=== PATIENT | female | born 1940 | race Caucasian/White ===

== ENCOUNTER 2019-01-29 18:49 | Inpatient (IN) ==
[2019-01-29] MEDS ORDERED: MoRPHine SULFATE 4 MG/ML 1 ML CARP\\VIAL IV STA (19:17)
[2019-01-29] MEDS ORDERED: KETOROLAC TROMETHAMINE 15 MG/ML VIAL IV STA (19:17)
[2019-01-29] MEDS ORDERED: ONDANSETRON INJ 2 MG/ML 2 ML VIAL IV STA (19:17)
[2019-01-29] MEDS ORDERED: SODIUM CHLORIDE 0.9% 1000ML 1,000 ML IV SCH (19:30)
[2019-01-29 19:49] LABS: Basophils # (auto) 0.02 K/uL (0-0.2); Basophils % (auto) 0.2 %; Eosinophils # (auto) 0.02 K/uL (0-0.5); Eosinophils % (auto) 0.2 %; Hematocrit (blood only) 44.6 % (37-47); Hemoglobin 15.7 g/dL (12.0-16.0); Immature Granulocytes # (auto) 0.03 K/uL (0.00-0.02); Immature Granulocytes % (auto) 0.3 %; Lymphocytes % (auto) 18.6 %; Mean Corpuscular Hgb Conc 35.2 g/dL (32-36); Mean Corpuscular Volume 96.3 fL (80-100); Mean Platelet Volume 9.5 fL (7.4-10.4); Monocytes # (auto) 1.01 K/uL (0.11-0.59); Monocytes % (auto) 11.8 %; Neutrophils % (auto) 68.9 %; Platelet Count 327 K/uL (130-400); RDW Coefficient of Variation 14.9 % (11.5-14.5); RDW Standard Deviation 52.2 fL (36.4-46.3); Red Blood Count 4.63 M/uL (4.2-5.4); White Blood Count 8.58 K/uL (4.8-10.8)
[2019-01-29 20:01] LABS: Appearance Urine Turbid (Clear); Bacteria Urine Automated Negative (Negative); Blood Urine 2+ (Negative); Color Urine Dark Yellow; Epithelial Cell Urine Auto >30 /lpf (0-5); Glucose Urine UA Negative (Negative); Ketones Urine 1+ (Negative); Leukocyte Esterase Urine 2+ (Negative); Nitrite Urine Negative (Negative); Protein Urine 1+ (Negative); Urobilinogen Urine Negative (Negative); WBC Urine Automated >30 /hpf (0-5)
[2019-01-29 20:06] LABS: Alanine Aminotransferase 32 U/L (12-78); Aspartate Aminotransferase 31 U/L (15-37); BUN Creatinine Ratio 9.5 (10-20); Blood Urea Nitrogen 14 mg/dl (7-18); Calcium 9.7 mg/dl (8.5-10.1); Carbon Dioxide 26 mmol/L (21-32); Chloride 98 mmol/L (98-107); Est GFR (African American) 38.1; Est GFR (Non-African American) 32.8; Glucose 119 mg/dl (70-99); Potassium 3.6 mmol/L (3.5-5.1); Sodium 135 mmol/L (136-145)
[2019-01-29 20:09] LABS: Albumin Globulin Ratio 1.1 (0.9-2); Alkaline Phosphatase 66 U/L (45-117); Bilirubin,Total 0.8 mg/dl (0.2-1); Globulin 3.6 gm/dl (2.5-4.0); Total Protein 7.6 gm/dl (6.4-8.2)
[2019-01-29 20:27] LABS: Bilirubin Urine 1+ (Negative)
[2019-01-29 20:28] LABS: Ictotest Urine Positive (Negative)
--- NOTE | 2019-01-29 20:47 | XRay Report ---
XR KUB/Abdomen 1 view CLINICAL HISTORY: R flank pain COMPARISON STUDY: 12/16/2018 FINDINGS: There is no pathologic bowel dilatation. No renal calculi are visualized. There are multipl e pelvic basin calcifications, likely representing phleboliths. There is a lumbar scoliosis. There ar e moderately advanced degenerative changes present within the spine IMPRESSION: 1. No evidence of pathologic bowel dilatation 2. No urinary tract calculi identified on conventional radiographic imaging Electronically signed by: Wellington Hutchinson M.D. 01/29/2019 8:46 PM
--- NOTE | 2019-01-29 21:00 | CT Scan Report ---
CT SCAN OF THE ABDOMEN AND PELVIS WITHOUT CONTRAST CLINICAL HISTORY: Hematuria, back pain. Possible pyelonephritis. COMPARISON STUDY: No previous studies for comparison. TECHNIQUE: CT scan of the abdomen and pelvis was performed from the lung bases to the proximal femurs . Images are reviewed in the axial, sagittal, and coronal planes. IV contrast was not administered fo r this examination. A dose lowering technique was utilized adhering to the principles of ALARA. CT DOSE: 307.26 mGy.cm FINDINGS: Lower chest: The heart is normal in size and configuration, without pericardial effusion. The lung ba ses and pleural spaces are clear. Liver: There is mild hepatic steatosis. No focal masses are visualized. There is no ductal dilatation . Gallbladder: Mildly distended. No calculi are visualized. Spleen: Normal in size and attenuation. Pancreas: Unremarkable. Adrenal glands: There is minor bilateral adrenal gland thickening Kidneys: No renal, ureteral, or bladder calculi are visualized. There is no hydronephrosis. The left kidney is slightly smaller than the right. Bowel: There are no transition zones indicate bowel obstruction. There is no evidence of acute append icitis. There is no evidence of acute diverticulitis. Peritoneum: There is no intraperitoneal free air or abdominal ascites. There is a tiny fat-containing umbilical hernia. Vasculature: The abdominal aorta is normal in course and caliber. Adenopathy: None. Pelvic viscera: The bladder, and pelvic viscera are unremarkable. Skeletal structures: There is a scoliosis. There are multilevel degenerative changes. No destructive lesions are visualized. IMPRESSION: 1. No evidence of bowel obstruction. No evidence of free air 2. No renal, ureteral, or bladder calculi identified 3. No evidence of acute appendicitis. No evidence of acute diverticulitis 4. Mild gallbladder distention Electronically signed by: Wellington Hutchinson M.D. 01/29/2019 8:59 PM
[2019-01-29] MEDS ORDERED: SODIUM CHLORIDE 0.9% 1000ML 1,000 ML IV ONE (21:17)
[2019-01-29] MEDS: fentaNYL citrate 100 MCG/2 ML VIAL IV ONE ×2 (21:25→21:31)
[2019-01-29] MEDS ORDERED: cefTRIAXone SODIUM 1,000 MG/50 ML BAG IV STA (22:54)
--- NOTE | 2019-01-29 23:51 | History & Physical Report ---
Date of Service January 29, 2019 Assessment & Plan (1) Neuralgia, postherpetic: Postherpetic neuralgia affecting right low back radiating to pelvis and down right leg- Failure of outpatient treatment with gabapentin and oxycodone. Placed on Voltaren gel 4 times daily overnight, then start Lidoderm patch in the a.m. Continue gabapentin 300 mg p.o. 3 times daily. Change oxycodone 5 mg p.o. every 4 hours as needed moderate pain. Patient did receive fentanyl 50 mcg IV, morphine sulfate 4 mg IV and Toradol 15 mg IV in the ED with little improvement. Will consult pain management. Present on Admission?: Yes (2) Glaucoma: Continue usual eyedrops Present on Admission?: Yes History of Present Illness Chief Complaint: The patient presents to the emergency department with severe right lower back pain radiating around to the front of her abdomen and down her right leg to her thigh. Primary Care Provider: Tereso Schwab MD The patient is an 79-year-old female who was treated for shingles in early December, has a healed rash with residual markings, but has had persistent right low back pain radiating toward the front of her abdomen, and down her right thigh, that has become intolerable. Allergies Allergy/AdvReac Type Severity Reaction Status Date / Time tomato Allergy Anaphylaxis Unverified 01/29/19 20: FRUIT Allergy Anaphylaxis Uncoded 01/29/19 20:19 Home Medications Home Medications Medication Instructions Recorded Confirmed Type brimonidine [Alphagan P] 1 drp OPL TID 12/16/18 01/29/19 History latanoprost 1 drp OPB PM 12/16/18 01/29/19 History gabapentin 300 mg PO TID 01/29/19 01/29/19 History oxycodone 10 mg PO UD PRN 01/29/19 01/29/19 History Past Med/Surg History Family History Other No pertinent family history Social History Preferred Language: Georgian Communication Ability: Effective Seismograph Recorder Required: No Beliefs That Will Affect Care: None Current Living Situation: Alone current occupational status: retired Other Information That Helps Us Care for You: No Feels Safe at Home: Yes Safety Concerns: Feels Safe At This Time Smoking Status: Never smoker Hx Alcohol Use: No Hx Substance Use: No Review of Systems Review of Systems: The patient denies chest pain, palpitations, shortness of breath, dyspnea on exertion, cough, lower extremity swelling, sore throat, fevers, chills, sweats, weight change, fatigue, nausea, vomiting, diarrhea , constipation, abdominal pain, pelvic pain, blood in urine or stool, dysuria, urinary frequency or urgency, lightheadedness, dizziness, headache, memory loss, loss of consciousness, abnormal bruising or bleeding, imbalance, focal or generalized weakness, numbness or tingling in arms, generalized arthralgias or myalgias, neck pain, or night sweats. The review of systems is otherwise negative other than for that already noted above, and at least 10 systems have been reviewed. Physical Exam Physical Exam: The patient is awake, alert and oriented 3, well developed and well nourished, normocephalic and atraumatic, lying in bed and in intermittent moderate distress due to right side pain as she moves. HEENT--PERRL, EOMI, mucous membranes and oropharynx normal. Neck--supple. No JVD. No bruits. Thyroid normal, trachea midline, no adenopathy. Heart--normal S1 and S2. No murmurs, rubs or gallops. Lungs--clear bilaterally, no respiratory distress, no accessory muscle use. Abdomen--normal bowel sounds and soft. Nontender. Nondistended. Extremities--no cyanosis or clubbing. No edema. There are good distal pulses b/l. Dermatologic--healing rash right lower back around toward the front, with lesion toward right sacroiliac, sensitive to light touch. Neurologic--cranial nerves II through XII grossly intact. Rheumatologic--normal range of motion. Psychiatric--normal affect. Results & Data Vital Signs (Past 12 Hours) Vital Signs Temp Pulse Pulse Resp BP BP Pulse Ox 01/29/19 23:50 86 18 128/86 99 01/29/19 22:44 83 18 167/76 H 98 01/29/19 22:00 100 H 20 168/117 H 98 01/29/19 21:39 94 H 20 154/77 H 96 01/29/19 21:06 103 H 20 156/79 H 98 01/29/19 20:17 68 18 145/92 H 100 01/29/19 19:53 81 18 99 01/29/19 19:36 98 01/29/19 19:00 36.7 C 113 H 24 134/78 97 Laboratory Results Laboratory Results WBC 8.58 K/uL (4.8-10.8) 01/29/19 19:25 RBC 4.63 M/uL (4.2-5.4) 01/29/19 19:25 Hgb 15.7 g/dL (12.0-16.0) 01/29/19 19:25 Hct 44.6 % (37-47) 01/29/19 19:25 MCV 96.3 fL (80-100) 01/29/19 19:25 MCH 33.9 pg (25-34) 01/29/19: MCHC 35.2 g/dL (32-36) 01/29/19 19:25 RDW Std Deviation 52.2 fL (36.4-46.3) H 01/29/19:25 RDW Coeff of Mikki 14.9 % (11.5-14.5) H 01/29/19:25 Plt Count 327 K/uL (130-400) 01/29/19 19:25 MPV 9.5 fL (7.4-10.4) 01/29/19 19:25 Immature Gran % (Auto) 0.3 % 01/29/19 19:25 Neut % (Auto) 68.9 % 01/29/19:25 Lymph % (Auto) 18.6 % 01/29/19 19:25 Burnet % (Auto) 11.8 % 01/29/19 19:25 Eos % (Auto) 0.2 % 01/29/19 19:25 Baso % (Auto) 0.2 % 01/29/19:25 Immature Gran # (Auto) 0.03 K/uL (0.00-0.02) H 01/29/19:25 Neut # (Auto) 5.90 K/uL (1.4-6.5) 01/29/19 19:25 Lymph # (Auto) 1.60 K/uL (1.2-3.4) 01/29/19 19:25 Burnet # (Auto) 1.01 K/uL (0.11-0.59) H 01/29/19 19:25 Eos # (Auto) 0.02 K/uL (0-0.5) 01/29/19 19:25 Baso # (Auto) 0.02 K/uL (0-0.2) 01/29/19 19:25 Sodium 135 mmol/L (136-145) L 01/29/19 19:25 Potassium 3.6 mmol/L (3.5-5.1) 01/29/19 19:25 Chloride 98 mmol/L (98-107) 01/29/19 19:25 Carbon Dioxide 26 mmol/L (21-32) 01/29/19 19:25 Anion Gap 11.0 (3-11) 01/29/19 19:25 BUN 14 mg/dl (7-18) 01/29/19:25 Creatinine 1.49 mg/dl (0.6-1.2) H 01/29/19 19:25 Est Cr Clr Drug Dosing Not Reportable 01/29/19:25 Est GFR ( Amer) 38.1 01/29/19 19:25 Est GFR (Non-Af Amer) 32.8 01/29/19 19:25 BUN/Creatinine Ratio 9.5 (10-20) L 01/29/19 19:25 Glucose 119 mg/dl (70-99) H 01/29/19:25 Calcium 9.7 mg/dl (8.5-10.1) 01/29/19 19:25 Total Bilirubin 0.8 mg/dl (0.2-1) 01/29/19 19:25 AST 31 U/L (15-37) 01/29/19 19:25 ALT 32 U/L (12-78) 01/29/19 19:25 Alkaline Phosphatase 66 U/L (45-117) 01/29/19 19:25 Troponin I < 0.015 ng/ml (0-0.045) 01/29/19 19:25 Total Protein 7.6 gm/dl (6.4-8.2) 01/29/19 19:25 Albumin 4.0 gm/dl (3.4-5.0) 01/29/19 19:25 Globulin 3.6 gm/dl (2.5-4.0) 01/29/19 19:25 Albumin/Globulin Ratio 1.1 (0.9-2) 01/29/19 19:25 Lipase 197 U/L (73-393) 01/29/19 19:25 Urine Color Dark Yellow 01/29/19 19:40 Urine Appearance Turbid (Clear) H 01/29/19 19:40 Urine pH 5.0 (4.5-7.5) 01/29/19 19:40 Ur Specific [place] 1.020 (1.000-1.030) 01/29/19 19:40 Urine Protein 1+ (Negative) H 01/29/19 19:40 Urine Glucose (UA) Negative (Negative) 01/29/19 19:40 Urine Ketones 1+ (Negative) H 01/29/19 19:40 Urine Blood 2+ (Negative) H 01/29/19 19:40 Urine Nitrite Negative (Negative) 01/29/19 19:40 Urine Bilirubin 1+ (Negative) H 01/29/19 19:40 Urine Urobilinogen Negative (Negative) 01/29/19 19:40 Ur Leukocyte Esterase 2+ (Negative) H 01/29/19 19:40 Urine WBC (Auto) >30 /hpf (0-5) H 01/29/19 19:40 Urine RBC (Auto) 5-10 /hpf (0-4) H 01/29/19 19:40 U Hyaline Cast (Auto) 1-5 /lpf (0-5) 01/29/19 19:40 U Epithel Cells (Auto) >30 /lpf (0-5) H 01/29/19 19:40 Urine Bacteria (Auto) Negative (Negative) 01/29/19 19:40 Diagnostic Findings [facility], [place] [phone] XRay Report Patient: CARLOS FREIRE UAdmit Date: 01/29/19 MR#: [id number]: [address] Acct ID:[id number]: Date: 1940City Zip: [place] [address] Age: 79Location: ED Sex: F Room/Bed: Att Phy: Diagnosis: APPENDIX ISSUES, GETTING OVER SHINGLES [place] Phy: Anant Schwab MDService Date: 01/29/19 Fam Phy: Abiel Jalloh MDInterpreting Phy: Wellington Hutchinson MD Admit Phy: Ordering Phy: Kevan Myrick M.D. cc: ~ XR KUB/Abdomen 1 view CLINICAL HISTORY: R flank pain COMPARISON STUDY: 12/16/2018 FINDINGS: There is no pathologic bowel dilatation. No renal calculi are visualized. There are multiple pelvic basin calcifications, likely representing phleboliths. There is a lumbar scoliosis. There are moderately advanced degenerative changes present within the spine IMPRESSION: 1. No evidence of pathologic bowel dilatation 2. No urinary tract calculi identified on conventional radiographic imaging Electronically signed by: Wellington Hutchinson M.D. 01/29/2019 8:46 PM Dictated: 01/29/192044 Transcribed: 01/29/192044 [place], [place] [phone] CT Scan Report Patient: CARLOS FREIRE UAdmit Date: 01/29/19 MR#: [id number]: [id number] Acct ID:[id number]: Date: 1940City Zip: [place] [address] Age: 79Location: ED Sex: F Room/Bed: Att Phy: Diagnosis: APPENDIX ISSUES, GETTING OVER SHINGLES [place] Phy: Anant Schwab MDService Date: 01/29/19 [facility] Phy: Abiel Jalloh MDInterpreting Phy: Wellington Hutchinson MD Admit Phy: Ordering Phy: Kevan Myrick M.D. cc: ~ CT SCAN OF THE ABDOMEN AND PELVIS WITHOUT CONTRAST CLINICAL HISTORY: Hematuria, back pain. Possible pyelonephritis. COMPARISON STUDY: No previous studies for comparison. TECHNIQUE: CT scan of the abdomen and pelvis was performed from the lung bases to the proximal femurs. Images are reviewed in the axial, sagittal, and coronal planes. IV contrast was not administered for this examination. A dose lowering technique was utilized adhering to the principles of ALARA. CT DOSE: 307.26 mGy.cm FINDINGS: Lower chest: The heart is normal in size and configuration, without pericardial effusion. The lung bases and pleural spaces are clear. Liver: There is mild hepatic steatosis. No focal masses are visualized. There is no ductal dilatation. Gallbladder: Mildly distended. No calculi are visualized. Spleen: Normal in size and attenuation. Pancreas: Unremarkable. Adrenal glands: There is minor bilateral adrenal gland thickening Kidneys: No renal, ureteral, or bladder calculi are visualized. There is no hydronephrosis. The left kidney is slightly smaller than the right. Bowel: There are no transition zones indicate bowel obstruction. There is no evidence of acute appendicitis. There is no evidence of acute diverticulitis. Peritoneum: There is no intraperitoneal free air or abdominal ascites. There is a tiny fat-containing umbilical hernia. Vasculature: The abdominal aorta is normal in course and caliber. Adenopathy: None. Pelvic viscera: The bladder, and pelvic viscera are unremarkable. Skeletal structures: There is a scoliosis. There are multilevel degenerative changes. No destructive lesions are visualized. IMPRESSION: 1. No evidence of bowel obstruction. No evidence of free air 2. No renal, ureteral, or bladder calculi identified 3. No evidence of acute appendicitis. No evidence of acute diverticulitis 4. Mild gallbladder distention Electronically signed by: Wellington Hutchinson M.D. 01/29/2019 8:59 PM Dictated: 01/29/192054 Transcribed: 01/29/192054 Code Status & VTE Plan Code Status Full code VTE Prophylaxis Plan VTE Prophylaxis will be ordered: Yes
--- NOTE | 2019-01-30 00:01 | Emergency Department Note ---
Entered by Kristy Vu acting as a scribe for Kevan Myrick MD History of Present Illness General Chief complaint: Abdominal Pain Stated complaint: APPENDIX ISSUES, GETTING OVER SHINGLES Time Seen by Provider: 01/29/19 19:06 History of Present Illness Onset (ago): month(s) 2 Location: back Pain Consistency: + constant Maximum Pain Intensity: 10 Quality: + other ("jolting") Associated symptoms: + nausea/vomiting (positive nausea, negative vomiting) and + other (abdominal pain, dry mouth); no chest pain and no shortness of breath Treatments prior to arrival: other (oxycodone) The patient is a 79 year-old white F w/ PMHx recent shingles and HTN who presents to the ED w/ CC of constant back pain beginning 2 months ago. She notes that 2 months ago she was treated in the ED for shingles. She states that she normally takes gabapentin and oxycodone for her pain but did not take gabapentin because she did not think it was working properly. She describes her pain as jolting. She notes that she is currently experiencing abdominal pain, nausea, and dry mouth. She denies experiencing chest pain and shortness of breath. She also denies a history of kidney stones, abdominal surgeries, and recent trauma. She notes that she has been experiencing normal bowel movements and urination. Home Medications Home Medications Medication Instructions Recorded Confirmed Type brimonidine [Alphagan P] 1 drp OPL TID 12/16/18 01/29/19 History latanoprost 1 drp OPB PM 12/16/18 01/29/19 History gabapentin 300 mg PO TID 01/29/19 01/29/19 History oxycodone 10 mg PO UD PRN 01/29/19 01/29/19 History Allergies Allergy/AdvReac Type Severity Reaction Status Date / Time tomato Allergy Anaphylaxis Unverified 01/29/19 20:19 FRUIT Allergy Anaphylaxis Uncoded 01/29/19 20:19 Past Med/Surg History Medical History H/O: HTN (hypertension) (Chronic) Shingles (Chronic) Surgical History No pertinent past surgical history Family History Other No pertinent family history Social History Preferred Language: Kinyarwanda current occupational status: retired Feels Safe at Home: Yes Smoking Status: Never smoker Review of Systems See HPI for pertinent positives & negatives. and A total of 10 systems reviewed and were otherwise negative Physical Exam Vital Signs Vital Signs - 24 hr 01/29/19 19:00 01/29/19 19:36 01/29/19 19:53 Temperature 36.7 C Temperature Source Oral Sepsis Recent Fever Within 48 Hours No Sepsis New/Unexplained Change in Mental Status No Sepsis Action Taken by Nursing No Action Required Pulse Rate 113 H Pulse Rate [Bilateral Apical] 81 Respiratory Rate 24 18 Respiratory Effort / Characteristics Respiratory Depth Blood Pressure 134/78 Blood Pressure [Right Arm] Blood Pressure Mean 96 Blood Pressure Mean [Right Arm] Pulse Oximetry 97 98 99 Oxygen Delivery Method Room Air Room Air Room Air 01/29/19 20:17 01/29/19 21:06 01/29/19 21:39 Temperature Temperature Source Sepsis Recent Fever Within 48 Hours Sepsis New/Unexplained Change in Mental Status Sepsis Action Taken by Nursing Pulse Rate Pulse Rate [Bilateral Apical] 68 103 H 94 H Respiratory Rate 18 20 20 Respiratory Effort / Characteristics Respiratory Depth Blood Pressure Blood Pressure [Right Arm] 145/92 H 156/79 H 154/77 H Blood Pressure Mean Blood Pressure Mean [Right Arm] 109 104 102 Pulse Oximetry 100 98 96 Oxygen Delivery Method Room Air Room Air Room Air 01/29/19 22:00 01/29/19 22:44 01/29/19 23:50 Temperature Temperature Source Sepsis Recent Fever Within 48 Hours Sepsis New/Unexplained Change in Mental Status Sepsis Action Taken by Nursing Pulse Rate Pulse Rate [Bilateral Apical] 100 H 83 86 Respiratory Rate 20 18 18 Respiratory Effort / Characteristics Non-Labored Respiratory Depth Normal Blood Pressure Blood Pressure [Right Arm] 168/117 H 167/76 H 128/86 Blood Pressure Mean Blood Pressure Mean [Right Arm] 134 106 100 Pulse Oximetry 98 98 99 Oxygen Delivery Method Room Air GENERAL: Mild distress and in pain, non-toxic. EYE EXAM: Normal conjunctiva. PERRL, no anisocoria and EOM's grossly intact w/o pain. OROPHARYNX: Moist mucus membranes. NECK: Supple, no nuchal rigidity, no adenopathy, non-tender. no signs of meningismus. LUNGS: Clear to auscultation. Normal chest wall mechanics. HEART: NSR, no MRG. ABDOMEN: Abdomen soft, non-tender, normo-active bowel sounds, no masses, no rebound or guarding. BACK: No CVA TTP. Right sided paraspinal back pain, no midline step off, no left sided pain, well healed small scars over R lower back consistent with prior shingles. SKIN: No rashes and no bruising. UPPER EXTREMITIES: Upper extremities are grossly normal. LOWER EXTREMITIES: No pitting edema. No calf pain. Negative straight leg raise bilaterally, no saddle anesthesia. NEURO EXAM: Cranial nerves II-XII grossly intact, normal speech, moves all 4 extremities on command w/o issue. Course 1914: The patient was evaluated in room B6. A complete history and physical exam was performed. 2039: The patient is currently going in for a CAT scan. 2146: The patient states that she is not feeling any better. 2240: I reviewed the patient's case with Dr. Wilver Hebert, [facility] Hospitalist. He will evaluate the patient for further management. Consultations Consultation #1: I reviewed the patient's case with Dr. Wilver Hebert, [facility] Hospitalist. He will evaluate the patient for further management. Time: 22:41 Administered Medications Discontinued Medications Fentanyl Citrate (Fentanyl Citrate) 50 mcg IV NOW ONE Stop: 01/29/19 21:18 Last Admin: 01/29/19 21:31 Dose: 50 mcg Documented by: [id number] Sodium Chloride (Nss 1000ml) 1,000 mls @ 999 mls/hr IV .Q1H1M TIFFANI Stop: 01/29/19 20:30 Last Infusion: 01/29/19 20:53 Dose: 0 mls/hr Documented by: [id number] Admin: 01/29/19 19:46 Dose: 999 mls/hr Documented by: [id number] Sodium Chloride (Nss 1000ml) 1,000 mls @ 999 mls/hr IV .Q1H1M ONE Stop: 01/29/19 22:17 Last Infusion: 01/29/19 22:35 Dose: 0 mls/hr Documented by: [id number] Admin: 01/29/19 21:25 Dose: 999 mls/hr Documented by: [id number] Ceftriaxone Sodium (Rocephin) 1,000 mg in 50 mls @ 100 mls/hr IV NOW STA Stop: 01/29/19 23:23 Last Infusion: 01/29/19 23:37 Dose: 0 mls/hr Documented by: [id number] Admin: 01/29/19 23:01 Dose: 100 mls/hr Documented by: [id number] Ketorolac Tromethamine (Toradol) 15 mg IV NOW STA Stop: 01/29/19 19:18 Last Admin: 01/29/19 19:46 Dose: 15 mg Documented by: [id number] Morphine Sulfate (Morphine Sulfate) 4 mg IV NOW STA Stop: 01/29/19 19:18 Last Admin: 01/29/19 19:46 Dose: 4 mg Documented by: [id number] Ondansetron HCl (Zofran) 4 mg IV NOW STA Stop: 01/29/19 19:18 Last Admin: 01/29/19 19:46 Dose: 4 mg Documented by: [id number] Medical Decision Making Medical Records Attestation: I reviewed the patient's medical records. Home Medications Current Medication List: was personally reviewed by me Laboratory Data Attestation: I reviewed the patient's lab results. Result diagrams: 01/29/19 19:25 01/29/19 19:25 Lab Results 01/29/19 01/29/19 01/29/19 Range/Units 19:25 19:25 19:25 WBC 8.58 (4.8-10.8) K/uL RBC 4.63 (4.2-5.4) M/uL Hgb 15.7 (12.0-16.0) g/dL Hct 44.6 (37-47) % MCV 96.3 (80-100) fL MCH 33.9 (25-34) pg MCHC 35.2 (32-36) g/dL RDW Std Deviation 52.2 H (36.4-46.3) fL RDW Coeff of Mikki 14.9 H (11.5-14.5) % Plt Count 327 (130-400) K/uL MPV 9.5 (7.4-10.4) fL Immature Gran % (Auto) 0.3 % Neut % (Auto) 68.9 % Lymph % (Auto) 18.6 % [place] % (Auto) 11.8 % Eos % (Auto) 0.2 % Baso % (Auto) 0.2 % Immature Gran # (Auto) 0.03 H (0.00-0.02) K/uL Neut # (Auto) 5.90 (1.4-6.5) K/uL Lymph # (Auto) 1.60 (1.2-3.4) K/uL [place] # (Auto) 1.01 H (0.11-0.59) K/uL Eos # (Auto) 0.02 (0-0.5) K/uL Baso # (Auto) 0.02 (0-0.2) K/uL Sodium 135 L (136-145) mmol/L Potassium 3.6 (3.5-5.1) mmol/L Chloride 98 (98-107) mmol/L Carbon Dioxide 26 (21-32) mmol/L Anion Gap 11.0 (3-11) BUN 14 (7-18) mg/dl Creatinine 1.49 H (0.6-1.2) mg/dl Est Cr Clr Drug Dosing Not Reportable Est GFR ( Amer) 38.1 Est GFR (Non-Af Amer) 32.8 BUN/Creatinine Ratio 9.5 L (10-20) Glucose 119 H (70-99) mg/dl Calcium 9.7 (8.5-10.1) mg/dl Total Bilirubin 0.8 (0.2-1) mg/dl AST 31 (15-37) U/L ALT 32 (12-78) U/L Alkaline Phosphatase 66 (45-117) U/L Troponin I < 0.015 (0-0.045) ng/ml Total Protein 7.6 (6.4-8.2) gm/dl Albumin 4.0 (3.4-5.0) gm/dl Globulin 3.6 (2.5-4.0) gm/dl Albumin/Globulin Ratio 1.1 (0.9-2) Lipase 197 (73-393) U/L Urine Color Urine Appearance (Clear) Urine pH (4.5-7.5) Ur Specific [place] (1.000-1.030) Urine Protein (Negative) Urine Glucose (UA) (Negative) Urine Ketones (Negative) Urine Blood (Negative) Urine Nitrite (Negative) Urine Bilirubin (Negative) Urine Urobilinogen (Negative) Ur Leukocyte Esterase (Negative) Urine WBC (Auto) (0-5) /hpf Urine RBC (Auto) (0-4) /hpf U Hyaline Cast (Auto) (0-5) /lpf U Epithel Cells (Auto) (0-5) /lpf Urine Bacteria (Auto) (Negative) 01/29/19 Range/Units 19:40 WBC (4.8-10.8) K/uL RBC (4.2-5.4) M/uL Hgb (12.0-16.0) g/dL Hct (37-47) % MCV (80-100) fL MCH (25-34) pg MCHC (32-36) g/dL RDW Std Deviation (36.4-46.3) fL RDW Coeff of Mikki (11.5-14.5) % Plt Count (130-400) K/uL MPV (7.4-10.4) fL Immature Gran % (Auto) % Neut % (Auto) % Lymph % (Auto) % [place] % (Auto) % Eos % (Auto) % Baso % (Auto) % Immature Gran # (Auto) (0.00-0.02) K/uL Neut # (Auto) (1.4-6.5) K/uL Lymph # (Auto) (1.2-3.4) K/uL [place] # (Auto) (0.11-0.59) K/uL Eos # (Auto) (0-0.5) K/uL Baso # (Auto) (0-0.2) K/uL Sodium (136-145) mmol/L Potassium (3.5-5.1) mmol/L Chloride (98-107) mmol/L Carbon Dioxide (21-32) mmol/L Anion Gap (3-11) BUN (7-18) mg/dl Creatinine (0.6-1.2) mg/dl Est Cr Clr Drug Dosing Est GFR ( Amer) Est GFR (Non-Af Amer) BUN/Creatinine Ratio (10-20) Glucose (70-99) mg/dl Calcium (8.5-10.1) mg/dl Total Bilirubin (0.2-1) mg/dl AST (15-37) U/L ALT (12-78) U/L Alkaline Phosphatase (45-117) U/L Troponin I (0-0.045) ng/ml Total Protein (6.4-8.2) gm/dl Albumin (3.4-5.0) gm/dl Globulin (2.5-4.0) gm/dl Albumin/Globulin Ratio (0.9-2) Lipase (73-393) U/L Urine Color Dark Yellow Urine Appearance Turbid H (Clear) Urine pH 5.0 (4.5-7.5) Ur Specific [place] 1.020 (1.000-1.030) Urine Protein 1+ H (Negative) Urine Glucose (UA) Negative (Negative) Urine Ketones 1+ H (Negative) Urine Blood 2+ H (Negative) Urine Nitrite Negative (Negative) Urine Bilirubin 1+ H (Negative) Urine Urobilinogen Negative (Negative) Ur Leukocyte Esterase 2+ H (Negative) Urine WBC (Auto) >30 H (0-5) /hpf Urine RBC (Auto) 5-10 H (0-4) /hpf U Hyaline Cast (Auto) 1-5 (0-5) /lpf U Epithel Cells (Auto) >30 H (0-5) /lpf Urine Bacteria (Auto) Negative (Negative) Imaging Data Radiologist's Impression: Radiology results as stated below per my review and the radiologist's interpretation: XR KUB/Abdomen 1 view CLINICAL HISTORY: R flank pain COMPARISON STUDY: 12/16/2018 FINDINGS: There is no pathologic bowel dilatation. No renal calculi are visualized. There are multiple pelvic basin calcifications, likely representing phleboliths. There is a lumbar scoliosis. There are moderately advanced degenerative changes present within the spine IMPRESSION: 1. No evidence of pathologic bowel dilatation 2. No urinary tract calculi identified on conventional radiographic imaging Electronically signed by: Wellington Hutchinson M.D. 01/29/2019 8:[address] SCAN OF THE ABDOMEN AND PELVIS WITHOUT CONTRAST CLINICAL HISTORY: Hematuria, back pain. Possible pyelonephritis. COMPARISON STUDY: No previous studies for comparison. TECHNIQUE: CT scan of the abdomen and pelvis was performed from the lung bases to the proximal femurs. Images are reviewed in the axial, sagittal, and coronal planes. IV contrast was not administered for this examination. A dose lowering technique was utilized adhering to the principles of ALARA. CT DOSE: 307.26 mGy.cm FINDINGS: Lower chest: The heart is normal in size and configuration, without pericardial effusion. The lung bases and pleural spaces are clear. Liver: There is mild hepatic steatosis. No focal masses are visualized. There is no ductal dilatation. Gallbladder: Mildly distended. No calculi are visualized. Spleen: Normal in size and attenuation. Pancreas: Unremarkable. Adrenal glands: There is minor bilateral adrenal gland thickening Kidneys: No renal, ureteral, or bladder calculi are visualized. There is no hydronephrosis. The left kidney is slightly smaller than the right. Bowel: There are no transition zones indicate bowel obstruction. There is no evidence of acute appendicitis. There is no evidence of acute diverticulitis. Peritoneum: There is no intraperitoneal free air or abdominal ascites. There is a tiny fat-containing umbilical hernia. Vasculature: The abdominal aorta is normal in course and caliber. Adenopathy: None. Pelvic viscera: The bladder, and pelvic viscera are unremarkable. Skeletal structures: There is a scoliosis. There are multilevel degenerative changes. No destructive lesions are visualized. IMPRESSION: 1. No evidence of bowel obstruction. No evidence of free air 2. No renal, ureteral, or bladder calculi identified 3. No evidence of acute appendicitis. No evidence of acute diverticulitis 4. Mild gallbladder distention Electronically signed by: Wellington Hutchinson M.D. 01/29/2019 8:59 PM ECG Data Attestation: I personally reviewed and interpreted this ECG as follows: Indication: abdominal pain Rate (beats per minute): 84 Rhythm: sinus rhythm Findings: + other (normal intervals, normal axis, no STs changes); no T-wave inversion Blood Pressure Blood Pressure Findings: Elevated blood pressure Blood Pressure Disposition: further management by hospitalist REMEDIOS Lopez The patient is a 79 year-old white F w/ PMHx recent shingles and HTN who presents to the ED w/ CC of constant back pain beginning 2 months ago. Differential diagnosis includes: musculoskeletal, disc herniation, fracture, aortic disease, metastatic disease, cord compression, discitis, infection, renal colic, gastrointestinal, acute exacerbation of chronic back pain, sciatica, cauda equina, as well as others were entertained. Patient was seen and evaluated the bedside. The patient has been complaining some right lower back discomfort. Patient denies any recent trauma. The pa tiejose antonio did have a recent bout of shingles and has been taking both oxycodone and gabapentin without much relief. The patient states that twinges. The patient does have well-healed mild scars the right lower back where she does have associated pain. She does not have any upper right-sided back pain and no left- sided back pain. Straight leg raise is negative. Neurovascular intact distally. Patient has no saddle anesthesia. No step-offs noted midline lumbar spine. Patient did a blood work completed along with EKG troponin KUB urinalysis and the patient was given medications to help with symptoms. X-ray was unremarkable. EKG also unremarkable. The patient's blood work is fairly normal. Patient was still complaining of persistent pain so she was given a did have a CT completed given the patient's persistent back pain and associated urine which could be related to infection. The patient CT was unremarkable. No evidence of diverticulitis appendicitis or bowel obstruction. There is also no evidence of pyelonephritis although it was a noncontrast study. Given the patient's symptoms she was treated with Rocephin. I did offer the patient admission given her persistent pain which likely may be related to her recent zoster infection and associated postherpetic neuralgia. I did speak with the on-call hospitalist who agreed to further evaluate treat the patient. Patient was admitted to the medicine service. Impression & Plan Neuralgia, postherpetic, Acute UTI Discharge Plan Visit Data Chief Complaint: Abdominal Pain Stated Complaint: APPENDIX ISSUES, GETTING OVER SHINGLES ED Provider: Kevan Myrick Discharge Problem: Neuralgia, postherpetic, Acute UTI Patient Disposition: Admitted As Inpatient Forms Stand Alone Forms: Call Back Authorization, [facility] [place] Prescriptions Prescriptions: No Action latanoprost 0.005 % Drops 1 drp OPB PM RF: 0 Alphagan P 0.1 % drops 1 drp OPL TID RF: 0 gabapentin 300 mg capsule 300 mg PO TID RF: 0 oxycodone 10 mg tablet 10 mg PO UD PRN (Reason: Pain) RF: 0 Referrals Referrals: Tereso Schwab MD [Primary Care Provider] - The scribe's documentation has been prepared under my direction and personally reviewed by me in its entirety. I confirm that the note above accurately reflects all work, treatment, procedures, and medical decision making performed by me.
[2019-01-30] MEDS ORDERED: ACETAMINOPHEN 325 MG TAB PO PRN (00:59)
[2019-01-30] MEDS ORDERED: POLYETHYLENE (MIRALAX) 17 GM PACK PO PRN (00:59)
[2019-01-30] MEDS ORDERED: DICLOFENAC SOD 1% GEL 100 GM TUBE EXT PRN (00:59)
[2019-01-30] MEDS: ONDANSETRON INJ 2 MG/ML 2 ML VIAL IV PRN ×2 (01:38→08:41)
[2019-01-30] MEDS: OXYCODONE HCL IR 5 MG TAB (IMMEDIATE RELEASE) PO PRN ×4 (01:38→23:53)
[2019-01-30] MEDS ORDERED: ALPHAGAN~ORDER AWAITING ACTION SCH (08:00)
[2019-01-30] MEDS ORDERED: PNEUMOCOCCAL POLYSACCHARIDES 25 MCG/0.5 ML VIAL/SYR IM ONE (08:15)
[2019-01-30] MEDS ORDERED: PNEUMOCOCCAL ADMINISTRATION CHARGE ONE (08:15)
--- NOTE | 2019-01-30 08:34 | Hospitalist Progress Note ---
Date of Service January 30, 2019 Assessment & Plan (1) Neuralgia, postherpetic: Postherpetic neuralgia affecting right low back radiating to pelvis and down right leg- Failure of outpatient treatment with gabapentin and oxycodone. Placed on Voltaren gel 4 times daily overnight, will add another Lidoderm patch as patient reports it is helping but does not extend far enough. Discontinue gabapentin 300 mg p.o. 3 times daily as patient reports it causes her to be nauseas and is not helping. Start amitryptiline po 10 mg daily and titrate up from there. Schedule acetaminophen 1g tid Continue oxycodone 5 mg p.o. every 4 hours as needed moderate pain, 2 mg IV morphine q3h Patient did receive fentanyl 50 mcg IV, morphine sulfate 4mg IV and Toradol 15 mg IV in the ED with little improvement. Pain management consult (2) Glaucoma: Continue usual eyedrops (3) DVT prophylaxis: SCDs Supervising Physician Co-Signing Physician Notes I supervised Lacy Almonte NP on the care of this patient. We discussed the patient's status and plan of care. The plan is as written in her note. Subjective Patient looks very uncomfortable and reports quite a lot of pain this morning. Her rash has largely cleared. She is nauseas but has not thrown up. Review of Systems Review of Systems: All systems reviewed & are unremarkable except as noted in HPI & below Physical Exam Physical Exam: General: painful appearing Eyes: normal inspection, PERLL Respiratory: chest non tender, clear to auscultation, normal breath sounds, no respiratory distress, no accessory muscle use Cardiac: regular rate and rhythm, no rub or gallop, no murmur, no edema, no jvd GI/: active bowel sounds, no abd pain or tenderness, soft, non distended Extremities: normal range of motion, normal strength, non tender Neuro/Psych: alert and oriented x 3, normal mood and affect Skin: normal color, dry Results & Data Vital Signs (Past 12 Hours) Vital Signs Temp Pulse Resp BP Pulse Ox 01/30/19 07:04 36.9 C 77 18 157/82 H 95 01/30/19 02:12 36.6 C 82 20 175/84 H 95 01/30/19 00:26 88 20 160/73 H 97 01/29/19 23:50 86 18 128/86 99 01/29/19 22:44 83 18 167/76 H 98 01/29/19 22:00 100 H 20 168/117 H 98 01/29/19 21:39 94 H 20 154/77 H 96 01/29/19 21:06 103 H 20 156/79 H 98
[2019-01-30] MEDS ORDERED: GABAPENTIN 300 MG CAP PO SCH (09:00)
[2019-01-30] MEDS ORDERED: LIDOCAINE 5% 1 PATCH TD SCH (09:00)
[2019-01-30] MEDS ORDERED: AMITRIPTYLINE HCL 10 MG TAB PO SCH (10:30)
[2019-01-30] MEDS ORDERED: MoRPHine SULFATE 2 MG/ML CARP IV PRN (10:43)
[2019-01-30] MEDS: ACETAMINOPHEN 500 MG TAB PO SCH ×2 (10:58→17:30)
[2019-01-30 11:43] LABS: Hemoglobin 14.2 g/dL (12.0-16.0)
[2019-01-30] MEDS: BRIMONIDINE TARTRATE OPL SCH ×3 (13:07→20:33)
[2019-01-30] MEDS: LIDOCAINE 5% 1 PATCH TD SCH (13:08)
[2019-01-30] MEDS: DICLOFENAC SOD 1% GEL 100 GM TUBE EXT SCH ×3 (13:10→20:29)
[2019-01-30] MEDS: LATANOPROST 0.005% OP SOLN 2.5 ML BTL OPB SCH (20:26)
[2019-01-31] MEDS: ACETAMINOPHEN 500 MG TAB PO SCH ×3 (02:19→18:00)
[2019-01-31] MEDS ORDERED: MoRPHine SULFATE 2 MG/ML CARP IV STA (03:40)
[2019-01-31 06:39] LABS: BUN Creatinine Ratio 8.8 (10-20); Calcium 9.2 mg/dl (8.5-10.1); Creatinine Clr Calc Pharmacy 33.3 ml/min; Est GFR (African American) 46.6; Est GFR (Non-African American) 40.2; Potassium 3.9 mmol/L (3.5-5.1)
[2019-01-31] MEDS: DICLOFENAC SOD 1% GEL 100 GM TUBE EXT SCH ×4 (08:42→22:20)
[2019-01-31] MEDS: BRIMONIDINE TARTRATE OPL SCH ×3 (08:42→21:40)
[2019-01-31] MEDS: OXYCODONE HCL IR 5 MG TAB (IMMEDIATE RELEASE) PO PRN ×3 (08:44→23:26)
--- NOTE | 2019-01-31 10:26 | Pain Management Consultation ---
Date of Consultation January 31, 2019 Assessment & Plan (1) Neuralgia, postherpetic: 1. Agree with discontinuation of gabapentin secondary to nausea. However, I do feel the patient would benefit from anticonvulsant therapy and thus will initiate Lyrica 50 mg p.o. twice daily. 2. Recommend initiation of Cymbalta 20 mg p.o. every morning to further augment descending pain regulation. 3. Recommend continuation of Lidoderm patch as well as oxycodone at this time for as needed pain relief. 4. Consider epidural steroid injections should she fail conservative measures, L1-2 versus L2-3 interlaminar or right L1 and L2 transforaminal epidural steroid injections. 5. Thank you for this consultation please call with any questions. History of Present Illness Attending Physician: Manuel Paige History of Present Illness 79-year-old female who had an episode of herpes zoster December 2018. She did visit with her primary care physician and was placed on valacyclovir as well as opiates. She reports the pain continues to be persistent sharp shooting electric burning along her L1 and 2 right-sided dermatomes. Pain is constant with intermittent exacerbations to 10 out of 10. She reports this is her first herpes zoster episode. She is unable to utilize gabapentin secondary to nausea. She is currently utilizing oxycodone as well as Lidoderm patch and amitrip tyline with mild benefit. She has not had any interventional pain management to this date. She denies any low back pain or radicular symptoms prior to this zoster infection. She denies any bowel or bladder incontinence, motor weakness, footdrop, fever, chills, and or night sweats at this time. Pain Assessment Pain scale - at its best (0-10): 4 Pain scale - at its worst (0-10): 10 Allergies Allergy/AdvReac Type Severity Reaction Status Date / Time tomato Allergy Anaphylaxis Unverified 01/29/19 20:19 FRUIT Allergy Anaphylaxis Uncoded 01/29/19 20:19 Home Medications Home Medications Medication Instructions Recorded Confirmed Type brimonidine [Alphagan P] 1 drp OPL TID 12/16/18 01/29/19 History latanoprost 1 drp OPB PM 12/16/18 01/29/19 History gabapentin 300 mg PO TID 01/29/19 01/29/19 History oxycodone 10 mg PO UD PRN 01/29/19 01/29/19 History Pain History Pain Location Full Body Front + Back: 1. 2. Pain Intensity [facility] Combined Pain Scale: 6-Mod to Severe - Significant limitations of ADLs. Hard to do anything Pain scale - at its best (0-10): 4 Pain scale - at its worst (0-10): 10 Cause Cause of Pain: Spontaneous Timing Timing: all day Character Pain character: burning and sharp Activity Factors Exacerbated by: other (Nothing seems to make the pain worse) Improved by: other (Slightly improved with oxycodone) Current Therapy Current Treatment Therapy: heat and other (Lidoderm) Current Medication Therapy: Gabapentin (Previously utilized but discontinued secondary to nausea), Opiods and TCA Current or Pending Litigation Current or Pending Litigation: No Patient History Medical History H/O: HTN (hypertension) (Chronic) Shingles (Chronic) Surgical History No pertinent past surgical history Family History Other No pertinent family history Social History Preferred Language: Upper Sorbian Communication Ability: Effective 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 Recent memory appears grossly intact Eyes: Pupils are equally round and reactive to light with normal size pupils, eyelids appear normal Ear, nose, mouth, and throat: Moist nasal and oral membranes, lips and tongues appear normal, no external ear abnormalities are noted Neck: The trachea is midline without deviation and no thyromegaly is noted Respiratory: Normal respiratory effort without distress, no audible wheezes or rhonchi CV: Normal S1 and S2 Chest: Deferred GI/abdomen: She has areas of scarring but no current excoriations or open wounds over her right T12-L2 dermatomes. She does have significant allodynia over these sites. She does not appear to have any rebound or guarding to abdominal palpation but is hesitant to allow me to examine the area secondary to burning dysesthesias. She did reluctantly agree to examination of her abdominal region. Musculoskeletal: Head is normocephalic and atraumatic, gait is within normal limits Cervical: Lordotic curve: Normal Range of motion is normal with extension, flexion, side-bending, rotation Strength: Strength is grossly equal bilaterally with 5 out of 5 strength in all planes Sensation of upper extremities: Intact bilaterally Thoracic: Kyphotic curve: Normal Range of motion is normal with extension, flexion, side-bending, rotation Tenderness: Nontender over the axial midline Lumbar: Lordotic curve: Slightly decreased Range of motion is normal with extension, flexion, side-bending, rotation Tenderness: tender over the axial midline only over areas of prior evidence of zoster infection Facet provocation: Negative bilaterally Strength: Strength is equal bilaterally with 5 out of 5 strength in all planes Sensation of lower extremities: Intact bilaterally Pathologic reflexes noted: None Skin: No rashes, lesions, ulcers, or induration noted. There is evidence of scarring post zoster infection in her right abdominal region as noted above. Neuro: No nystagmus noted, the tongue is midline, the patient is able to rotate their head bilaterally : Deferred Results Diagnostic Review CT: reports reviewed CT Findings: [place], [place] [phone] CT Scan Report Patient: CARLOS FREIRE UAdmit Date: 01/29/19 MR#: [id number]: [id number] [facility] Acct ID:[id number]: Date: 1940[facility] Zip: [place] [address] Age: 79Location: ED Sex: F Room/Bed: Att Phy: Diagnosis: APPENDIX ISSUES, GETTING OVER SHINGLES Brook Phy: Anant Schwab, MDService Date: 01/29/19 Fam Phy: Abiel Jalloh MDInterpreting Phy: Wellington Hutchinson MD Admit Phy: Ordering Phy: Ramez, Kevan D., M.D. cc: ~ CT SCAN OF THE ABDOMEN AND PELVIS WITHOUT CONTRAST CLINICAL HISTORY: Hematuria, back pain. Possible pyelonephritis. COMPARISON STUDY: No previous studies for comparison. TECHNIQUE: CT scan of the abdomen and pelvis was performed from the lung bases to the proximal femurs. Images are reviewed in the axial, sagittal, and coronal planes. IV contrast was not administered for this examination. A dose lowering technique was utilized adhering to the principles of ALARA. CT DOSE: 307.26 mGy.cm FINDINGS: Lower chest: The heart is normal in size and configuration, without pericardial effusion. The lung bases and pleural spaces are clear. Liver: There is mild hepatic steatosis. No focal masses are visualized. There is no ductal dilatation. Gallbladder: Mildly distended. No calculi are visualized. Spleen: Normal in size and attenuation. Pancreas: Unremarkable. Adrenal glands: There is minor bilateral adrenal gland thickening Kidneys: No renal, ureteral, or bladder calculi are visualized. There is no hydronephrosis. The left kidney is slightly smaller than the right. Bowel: There are no transition zones indicate bowel obstruction. There is no evidence of acute appendicitis. There is no evidence of acute diverticulitis. Peritoneum: There is no intraperitoneal free air or abdominal ascites. There is a tiny fat-containing umbilical hernia. Vasculature: The abdominal aorta is normal in course and caliber. Adenopathy: None. Pelvic viscera: The bladder, and pelvic viscera are unremarkable. Skeletal structures: There is a scoliosis. There are multilevel degenerative changes. No destructive lesions are visualized. IMPRESSION: 1. No evidence of bowel obstruction. No evidence of free air 2. No renal, ureteral, or bladder calculi identified 3. No evidence of acute appendicitis. No evidence of acute diverticulitis 4. Mild gallbladder distention
[2019-01-31] MEDS: DULOXETINE HCL 20 MG CAP PO SCH (10:54)
[2019-01-31] MEDS: PREGABALIN 50 MG CAP PO SCH ×2 (10:55→22:20)
[2019-01-31] MEDS: ONDANSETRON INJ 2 MG/ML 2 ML VIAL IV PRN ×2 (13:48→19:33)
[2019-01-31] MEDS: CEROVITE ADV FORMULA TAB PO SCH (18:00)
--- NOTE | 2019-01-31 19:30 | Hospitalist Progress Note ---
Date of Service January 31, 2019 Assessment & Plan (1) Neuralgia, postherpetic: appreciate pain management consultation & recs. did not tolerate gabapentin in the past. agree w/ initiation of cymbalta and lyrica. agree w/ lidoderm patches. oxycodone prn. plan to titrate lyrica in the future as tolerated. Present on Admission?: Yes (2) Acute UTI: 2nd to lactobacillus. amox 500 TID x 3 days. Present on Admission?: Yes (3) Severe protein-calorie malnutrition: 20+ pounds of weight loss in 6-8 weeks. I have hard time blaming all of this significant weight loss on side effects from gabapentin and/or other meds. on CT abd/pelvis there was a distended gall bladder. will check RUQ u/s to rule out biliary tract pathology. consider PPI -- gastritis? consider additional work-up as necessary. Present on Admission?: Yes (4) Weight loss: see discussion above. will need additional work-up post-discharge (colonoscopy, EGD, mammogram, etc). Present on Admission?: Yes (5) DVT prophylaxis: start heparin 5000 TID in am Abnormal lab results 01/31/19 Range/Units 05:57 Creatinine 1.26 H (0.6-1.2) mg/dl BUN/Creatinine Ratio 8.8 L (10-20) I certify that the inpatient services were ordered in accordance with Medicare regulations governing the order. This includes certification that hospital inpatient services are reasonable and necessary and in the case of services not specified as inpatient-only under 42 CFR 419.22(n), that they are appropriately provided as inpatient services in accordance to with the 2-midnight benchmark under 43 CFR 412.3(e) Subjective pt reports having lost at least 20 pounds since early December when she was initially dx with shingles on her right abdomen. prior to the shingles she had some form of respiratory illness "all of November" but she did not seek medical attention for this. she attributes her weight loss to "lack of taste" and she blames side effects from oxycodone and gabapentin (both prescribed for her shingles) for the taste issue. she has had persistent nausea for weeks dating back to December. no vomiting. she has had upper abdominal pain in addition to the above. reports that the lidoderm patches do help her pain on the right flank and right abdominal wall (lower thoracic dermatome). she has had some right leg paresthesias in addition to what is listed above. Review of Systems Constitutional: no fever Respiratory: no dyspnea Cardiovascular: no chest pain, no orthopnea, no paroxysmal nocturnal dyspnea and no edema Gastrointestinal: + abdominal pain and + nausea; no vomiting, no constipation, no diarrhea/loose stools and no blood in stools Physical Exam Constitutional: no acute distress slight confusion at times ENMT: Mouth: + oral mucosal abnormality (MM dry) Respiratory: normal respiratory effort, lungs clear to auscultation Cardiovascular: Rate/Rhythm: regular rate and regular rhythm Heart Sounds: normal S1 and normal S2; no murmur Vessels: posterior tibial pulses present and dorsalis pedis pulses present; no JVD Extremities: no edema Gastrointestinal (Abdomen): tender over epigastric area (mild) and scant tenderness RUQ; hyperalgesia to the lower abdominal wall (T11 dermatome or T12 dermatome) with minimal palpation; ND, no HSM, soft Neurologic: no focal motor deficits Psychiatric: Orientation: alert Results & Data Vital Signs (Past 12 Hours) Vital Signs Temp Pulse Resp BP Pulse Ox 01/31/19 14:49 37.1 C 67 18 151/77 H 95 Laboratory Results Laboratory Results - last 24 hr 01/31/19 05:57 Sodium 139 Potassium 3.9 Chloride 107 Carbon Dioxide 26 Anion Gap 6.0 BUN 11 Creatinine 1.26 H Est Cr Clr Drug Dosing 33.3 Est GFR ( Amer) 46.6 Est GFR (Non-Af Amer) 40.2 BUN/Creatinine Ratio 8.8 L Glucose 98 Calcium 9.2
[2019-01-31] MEDS ORDERED: AMOXICILLIN 500 MG CAP PO SCH (21:00)
[2019-01-31] MEDS: LATANOPROST 0.005% OP SOLN 2.5 ML BTL OPB SCH (21:40)
[2019-02-01] MEDS: ACETAMINOPHEN 500 MG TAB PO SCH ×4 (01:43→18:30)
[2019-02-01] MEDS: OXYCODONE HCL IR 5 MG TAB (IMMEDIATE RELEASE) PO PRN ×3 (05:24→20:29)
[2019-02-01] MEDS: ONDANSETRON INJ 2 MG/ML 2 ML VIAL IV PRN ×2 (06:41→12:42)
[2019-02-01] MEDS: LIDOCAINE 5% 1 PATCH TD SCH (07:28)
[2019-02-01] MEDS: DICLOFENAC SOD 1% GEL 100 GM TUBE EXT SCH ×4 (07:28→20:35)
[2019-02-01] MEDS: BRIMONIDINE TARTRATE OPL SCH ×3 (07:28→20:35)
--- NOTE | 2019-02-01 07:29 | Ultrasound Report ---
ABDOMINAL ULTRASOUND, RIGHT UPPER QUADRANT HISTORY: weight loss, nausea, gall bladder distension on CT. COMPARISON: Abdomen and pelvis CT 01/29/2019. FINDINGS: Pancreas: The pancreas demonstrates a normal echotexture. Liver: Unremarkable. Gallbladder: The gallbladder is distended and filled with sludge. Mild gallbladder wall thickening me asuring 3 mm. The technologist reported a positive sonographic Hackett's sign. CBD: Distended measuring 1.2 cm. Small amount of sludge/stones layering within the common bile duct. Right kidney: No hydronephrosis. IMPRESSION: The gallbladder and common bile duct are distended. There is mild gallbladder wall thickening with a positive sonographic Hackett's sign. Trace sludge/stones are within the common bile duct. Therefore, t hese findings are concerning for acute cholecystitis. Clinical correlation recommended. Electronically signed by: Felton Yeung M.D. 02/01/2019 7:28 AM
[2019-02-01] MEDS: MoRPHine SULFATE 2 MG/ML CARP IV PRN ×3 (08:08→14:38)
[2019-02-01 08:12] LABS: BUN Creatinine Ratio 10.6 (10-20); Calcium 9.4 mg/dl (8.5-10.1); Creatinine Clr Calc Pharmacy 34.7 ml/min; Est GFR (African American) 48.9; Est GFR (Non-African American) 42.2; Potassium 4.2 mmol/L (3.5-5.1)
[2019-02-01] MEDS: CEROVITE ADV FORMULA TAB PO SCH (08:14)
--- NOTE | 2019-02-01 08:21 | Hospitalist Progress Note ---
Date of Service February 01, 2019 Assessment & Plan (1) Abnormal gall bladder diagnostic imaging: CT at time of admission showed a distended gall bladder. She reported daily nausea, inability to eat, weight loss, and abdominal pain dating back to December. She blamed these symptoms on side effects from gabapentin & other meds for her shingles. RUQ u/s obtained overnight - highly concerning for acute cholecystitis and choledocholithiasis. Spoke with [facility] and general surgery - both will consult. NPO. IVF. Blood cx's x 2 sets. Recheck LFTs. May need MRCP and/or ERCP - defer to GI. Start IV unasyn once cultures are obtained. Patient was updated with RUQ u/s results & plan of care. Present on Admission?: Yes (2) Neuralgia, postherpetic: T11 or T12 dermatome on right. Initial outbreak of rash - first week of December. Has no active skin lesions. s/p pain management consultation - appreciate their recs. did not tolerate gabapentin in the past. cymbalta and lyrica started yesterday for pain - allow these meds if she can tolerate from GI standpoint. cont lidoderm patches. morphine PRN while NPO. (3) Acute UTI: 2nd to . Unasyn will cover. (4) Severe protein-calorie malnutrition: 20+ pounds of weight loss in 6-8 weeks. I had hard time blaming all of this significant weight loss on side effects from gabapentin and/or other meds. Potentially biliary tract disease was contributing to this -- see above. (5) Weight loss: see discussion above. chronic cholecystitis? Biliary tract cancer? other? (6) DVT prophylaxis: hold on heparin since may need ERCP. SCDs for now. Subjective Patient c/o "shingles" pain, RUQ/epigastric pain, and nausea this am. During u/s of gall bladder at midnight last night she had considerable upper abdominal pain. No vomiting fortunately. No fevers/chills. Simply doesn't feel well this am. Review of Systems Constitutional: + anorexia; no fever and no chills Respiratory: no cough and no dyspnea Cardiovascular: no chest pain Gastrointestinal: + abdominal pain and + nausea; no vomiting Physical Exam Constitutional: + ill appearing (kept c/o nausea during the exam) looks dehydrated ENMT: Mouth: + oral mucosal abnormality (MM dry) Respiratory: normal respiratory effort, lungs clear to auscultation Cardiovascular: Rate/Rhythm: regular rate and regular rhythm Heart Sounds: normal S1 and normal S2; no murmur Vessels: posterior tibial pulses present and dorsalis pedis pulses present; no JVD Extremities: no edema Gastrointestinal (Abdomen): Inspection/Auscultation: abdomen not distended Percussion/Palpation: + abdomen tender (RUQ/epigastric region; tender over T11 or T12 dermatome on right as well); no guarding, abdomen not rigid and no hepatosplenomegaly Skin: no jaundice Psychiatric: Orientation: alert and oriented x 3 Results & Data Vital Signs (Past 12 Hours) Vital Signs Temp Pulse Resp BP Pulse Ox 02/01/19 07:20 36.9 C 78 18 144/80 H 97 01/31/19 23:50 37 C 72 18 168/81 H 97 Laboratory Results Laboratory Results - last 24 hr 02/01/19 07:24 Sodium 138 Potassium 4.2 Chloride 104 Carbon Dioxide 27 Anion Gap 7.0 BUN 13 Creatinine 1.21 H Est Cr Clr Drug Dosing 34.7 Est GFR ( Amer) 48.9 Est GFR (Non-Af Amer) 42.2 BUN/Creatinine Ratio 10.6 Glucose 102 H Calcium 9.4
[2019-02-01 08:41] LABS: Albumin Level 3.3 gm/dl (3.4-5.0); Bilirubin Direct 0.1 mg/dl (0-0.2); Bilirubin,Total 0.5 mg/dl (0.2-1); Total Protein 6.4 gm/dl (6.4-8.2)
[2019-02-01] MEDS: AMPICILLIN/SULBACTAM SOD 3,000 MG in 0.9 % SODIUM CHLORIDE 100 ML IV SCH ×3 (08:49→20:33)
[2019-02-01] MEDS: D5NSS + 20MEQ KCL 20 MEQ/1,000 ML BAG IV SCH ×2 (08:49→20:34)
--- NOTE | 2019-02-01 09:08 | Pain Management Progress Note ---
Date of Service February 01, 2019 Assessment & Plan (1) Neuralgia, postherpetic: 1. Increase Lyrica to 75 mg p.o. twice daily. Orders are written. 2. Recommend continuation of oxycodone, Lidoderm patch, and Cymbalta. 3. Agree with IV utilization of morphine at this time. 4. Consider epidural steroid injections should she fail conservative measures, L1-2 versus L2-3 interlaminar or right L1 and L2 transforaminal epidural steroid injections, could plan for early next week pending outcome of evaluation of her gallbladder. 5. We will continue to follow. (2) Abnormal gall bladder diagnostic imaging: Subjective 79-year-old female who had an episode of herpes zoster December 2018. She reports the pain continues to be persistent sharp shooting electric burning along her L1 and 2 right-sided dermatomes. Pain is constant with intermittent exacerbations to 9 out of 10. She utilized oxycodone 20 mg over the last 24 hours. She reports mild efficacy with Lidoderm patch. She was able to tolerate Lyrica without any side effects yesterday. She is unsure of any benefit from Cymbalta and Lyrica dosing at this early stage. She is reporting some right upper quadrant pain as well as lower abdominal pain this a.m. She continues to report nausea. She had a right upper quadrant ultrasound yesterday which showed evidence of acute cholecystitis. General surgery and GI were consulted this morning by her hospitalist team. She denies any bowel or bladder incontinence, motor weakness, footdrop, fever, chills, and or night sweats at this time. Physical Exam Physical Exam: Constitutional: Well-developed, well-nourished, healthy- appearing, normal weight Psych: Awake, alert, and oriented 3 with normal affect and mood. Recent memory appears grossly intact Eyes: Pupils are equally round and reactive to light with normal size pupils, eyelids appear normal Ear, nose, mouth, and throat: Moist nasal and oral membranes, lips and tongues appear normal, no external ear abnormalities are noted Neck: The trachea is midline without deviation and no thyromegaly is noted Respiratory: Normal respiratory effort without distress, no audible wheezes or rhonchi GI/abdomen: She has areas of scarring but no current excoriations or open wounds over her right T12-L2 dermatomes. She does have significant allodynia over these sites. She has tenderness over her right upper quadrant to palpation. Musculoskeletal: Head is normocephalic and atraumatic, gait is within normal limits Cervical: Lordotic curve: Normal Range of motion is normal with extension, flexion, side-bending, rotation Strength: Strength is grossly equal bilaterally with 5 out of 5 strength in all planes Thoracic: Kyphotic curve: Normal Range of motion is normal with extension, flexion, side-bending, rotation Tenderness: Nontender over the axial midline Lumbar: Lordotic curve: Slightly decreased Range of motion is normal with extension, flexion, side-bending, rotation Tenderness: tender over the axial midline only over areas of prior evidence of zoster infection Strength: Strength is grossly equal bilaterally with 5 out of 5 strength in all planes Sensation of lower extremities: Intact bilaterally Skin: No rashes, lesions, ulcers, or induration noted. There is evidence of scarring post zoster infection in her right abdominal region as noted above. Neuro: No nystagmus noted, the tongue is midline, the patient is able to rotate their head bilaterally : Deferred Results Diagnostic Review Other Findings: [place], [place] [phone] Ultrasound Report Patient: CARLOS FREIRE UAdmit Date: 01/31/19 MR#: [id number]: [address] [facility] Acct ID:[id number]: Date: 1940[facility] Zip: [place] [address] Age: 79Location: 4E Sex: F Room/Bed: [facility] Att Phy: Manuel Paige MDDiagnosis: INTRACTABLE POSTHERPETIC NEURALGIA Brook Phy: Anant Schwab MDService Date: 01/31/19 Fam Phy: Abiel Jalloh MDInterpreting Phy: Felton Yeung MD Admit Phy: Wilver Hebert M.D. Ordering Phy: Manuel Paige MD cc: ~ ABDOMINAL ULTRASOUND, RIGHT UPPER QUADRANT HISTORY: weight loss, nausea, gall bladder distension on CT. COMPARISON: Abdomen and pelvis CT 01/29/2019. FINDINGS: Pancreas: The pancreas demonstrates a normal echotexture. Liver: Unremarkable. Gallbladder: The gallbladder is distended and filled with sludge. Mild gallbladder wall thickening measuring 3 mm. The technologist reported a positive sonographic Hackett's sign. CBD: Distended measuring 1.2 cm. Small amount of sludge/stones layering within the common bile duct. Right kidney: No hydronephrosis. IMPRESSION: The gallbladder and common bile duct are distended. There is mild gallbladder wall thickening with a positive sonographic Hackett's sign. Trace sludge/stones are within the common bile duct. Therefore, these findings are concerning for acute cholecystitis. Clinical correlation recommended. Previous Records Review Previous Records: personally reviewed by me Opioid Risk Assessment Opioid Risk Assessment: risk assessment performed and no issues identified
[2019-02-01] MEDS: DULOXETINE HCL 20 MG CAP PO SCH (10:05)
[2019-02-01] MEDS: PREGABALIN 75 MG CAP PO SCH ×2 (10:05→20:29)
--- NOTE | 2019-02-01 11:50 | Gastrointestinal Consultation ---
Date of Consultation February 01, 2019 Assessment & Plan (1) Abnormal gall bladder diagnostic imagin79 year old female admitted w/ post-herpetic pain, abd imaging concerning for gallstones, GB wall thickening, CBD dilation and concern for layering stone/sludge - NPO - LFTs normal - MRCP - Consult general surgery - May need ERCP pending MR results Thank you for allowing us to participate in the care of this patient. Please call with any acute changes, questions or concerns. Please see addendum below with additional recommendation from my supervising physician. Present on Admission?: No Supervising Physician Co-Signing Physician Notes I have seen and examined the patient and discussed the management with CL Villatoro. 79 yo fm for which GI is consulted for abnormal imaging- abd diann showing sludge and dilated CBD with normal lft's (CBD 1.2 cm), AST 23, ALT 25, TB 0.5, DB 0.1. Admitted with right sided pain- though to be post herpetic pain, no vesicles noted on physical exam. Worsening nausea- leading to abd diann. PE: elderly female in nad, HEENT: perrla, CV: rr no mrg, Pulm: CTAB, Abd: soft slight ruq ttp, nt nd +bs, Ext: no rash noted on her abdomen labs reviewed, imaging reviewed MRCP, ERCP pending MRCP results. History of Present Illness Reason for Consultation: abnormal bile duct Requesting Physician: Royal Attending Physician: Manuel Paige History of Present Illness 79 year old female with history of HTN, shingles in December admitted for control of post-herpetic pain. GI asked to evaluation for abnormal imaging. Pt was seen and evaluated, chart reviewed. Notes shingles in December on right abdominal and into flank region. once resolved, she had persistent herpetic pain. Chronic, worse w/ touch. Mild associated nausea, vomiting although not clear to hear if related to the severity of pain or medication. Pain has significnat worsened which prompted ED evaluation. + weight loss no fever, chills No change in BM EGD/Colon she denies None in epic Did not find records in [facility] ABD US: The gallbladder and common bile duct are distended. There is mild gallbladder wall thickening with a positive sonographic Hackett's sign. Trace sludge/stones are within the common bile duct. Therefore, these findings are concerning for acute cholecystitis. Clinical correlation recommended. CT: No evidence of bowel obstruction. No evidence of free airNo renal, ureteral, or bladder calculi identifiedNo evidence of acute appendicitis. No evidence of acute diverticulitis Mild gallbladder distention Allergies Allergy/AdvReac Type Severity Reaction Status Date / Time tomato Allergy Anaphylaxis Unverified 01/29/19 20:19 FRUIT Allergy Anaphylaxis Uncoded 01/29/19 20:19 Home Medications Home Medications Medication Instructions Recorded Confirmed Type brimonidine [Alphagan P] 1 drp OPL TID 12/16/18 01/29/19 History latanoprost 1 drp OPB PM 12/16/18 01/29/19 History gabapentin 300 mg PO TID 01/29/19 01/29/19 History oxycodone 10 mg PO UD PRN 01/29/19 01/29/19 History Patient History Medical History H/O: HTN (hypertension) (Chronic) Shingles (Chronic) Surgical History No pertinent past surgical history Family History Other No pertinent family history Social History Preferred Language: Romanian Communication Ability: Effective 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 Beliefs That Will Affect Care: None Current Living Situation: Alone current occupational status: retired Other Information That Helps Us Care for You: No Feels Safe at Home: Yes Safety Concerns: Feels Safe At This Time Smoking Status: Never smoker Hx Alcohol Use: No Hx Substance Use: No Review of Systems Constitutional: + weight loss; no fever and no body aches Respiratory: no cough, no dyspnea, no pain on inspiration and no wheezing Cardiovascular: no chest pain, no radiating jaw, neck or arm pain, no dyspnea on exertion and no palpitations Gastrointestinal: + abdominal pain, + early satiety, + nausea and + vomiting; no hematemesis, no diarrhea/loose stools, no blood in stools and no melena Physical Exam Constitutional: well developed and well nourished Respiratory: normal respiratory effort, lungs clear to auscultation Cardiovascular: RRR, no murmur, no edema Gastrointestinal (Abdomen): Inspection/Auscultation: abdomen normal to inspection Percussion/Palpation: + abdomen tender (right UQ), + guarding and abdomen soft; abdomen not rigid, no abdominal mass and no ascites Skin: no rashes, warm and dry Results & Data Vital Signs (Past 12 Hours) Vital Signs Temp Pulse Resp BP Pulse Ox 02/01/19 07:20 36.9 C 78 18 144/80 H 97 01/31/19 23:50 37 C 72 18 168/81 H 97 Laboratory Results 02/01/19 02/01/19 Range/Units 07:24 07:24 Sodium 138 (136-145) mmol/L Potassium 4.2 (3.5-5.1) mmol/L Chloride 104 (98-107) mmol/L Carbon Dioxide 27 (21-32) mmol/L Anion Gap 7.0 (3-11) BUN 13 (7-18) mg/dl Creatinine 1.21 H (0.6-1.2) mg/dl Est Cr Clr Drug Dosing 34.7 ml/min Est GFR ( Amer) 48.9 Est GFR (Non-Af Amer) 42.2 BUN/Creatinine Ratio 10.6 (10-20) Glucose 102 H (70-99) mg/dl Calcium 9.4 (8.5-10.1) mg/dl Total Bilirubin 0.5 (0.2-1) mg/dl Direct Bilirubin 0.1 (0-0.2) mg/dl AST 23 (15-37) U/L ALT 25 (12-78) U/L Alkaline Phosphatase 58 (45-117) U/L Total Protein 6.4 (6.4-8.2) gm/dl Albumin 3.3 L (3.4-5.0) gm/dl
[2019-02-01] MEDS ORDERED: LORazepam 0.5 MG/1 ML VIAL IV STA (15:10)
--- NOTE | 2019-02-01 17:00 | Surgery Consultation ---
Date of Consultation February 01, 2019 Assessment & Plan (1) Abnormal gall bladder diagnostic imagin-year-old female who presented to the ED with persistent and increasing abdominal pain with history of shingles in December and postherpetic neuralgia on pain medication. She also had a history of persistent nausea with a 20 pound weight loss in last [address] scan of the abdomen and pelvis in the emergency room showed gallbladder distention however no other findings. Upon further workup of her chronic nausea and 20 pound weight loss she had a gallbladder ultrasound which showed distended gallbladder with mild thickening of the gallbladder wall and a positive Hackett sign on examination. She also had dilated common bile duct at 1.2 cm with suggestion of trace sludge and stones in the common bile duct. Her labs on presentation included no leukocytosis and total bilirubin along with LFTs and lipase were completely within normal limits. On examination she is tender in the right upper quadrant and epigastric. She sounds tender in the right flank in the area of her shingles. Plan: Patient scheduled for MRCP as per GI recommendations to further evaluate common bile duct given ultrasound findings. We will await those results. Patient concerned about proceeding with cholecystectomy in regards to her recent shingles infection and possibly increasing her pain. Would recommend EGD for further workup of her dysphasia. Continue IV antibiotics for possible early acute cholecystitis Continue current pain management recommendations Repeat morning labs Continue current medical management Dr. Perez has seen and examined patient and agrees with above please see addendum for further recommendations/plan. Supervising Physician Co-Signing Physician Notes I have seen and evaluated the patient and reviewed the medical record. I agree with the documentation as provided in this note by Kristie Greenberg PA-C. Pt is an 79 yo female who presents with possible cholecystitis and possible choledocholithiasis. She does have a significant recent weight loss of 20 pounds over the past two months. She also has a recent history of shingles, and those symptoms seemed to be preoccupying her at the time of the examination. Agree with MRCP for further evaluation with possible GI intervention EUS +/- ERCP pending results of MRCP. If only symptomatic cholelithiasis/cholecystitis or choledocholithiasis would recommend cholecystectomy. Discussed these recommendations with the patient at length today and she would like to pursue surgery however is very concerned with having surgery given the recent shingles and voiced numerous times her concern of "shingles getting into her wounds" and pain if incision were to be at site of pain related to postherpetic neuralgia. She would like to think about surgery further. I will re-discuss with her tomorrow. Potential for OR tomorrow pending findings on MRCP and patient decision. History of Present Illness Reason for Consultation: Right upper quadrant abdominal pain, persistent nausea, 20 pound weight loss in past 2 month Attending Physician: Manuel Paige History of Present Illness Susy is a 79-year-old female who presented to the emergency department with postherpetic pain. She had shingles in December in which she has had chronic postherpetic pain and is currently on pain management. The pain significantly increased in severity which she presented to the emergency department. She has had chronic nausea as well as decreased appetite and anorexia for the past couple of months. She thought maybe it was due to the pain but she has also lost about 20 pounds since November. She has also noticed some difficulty swallowing .However she thought it was due to the new medications and difficulty swallowing those pills. Denies of any fevers, chills, sweats, vomiting, change in bowel movements, constipation, diarrhea, blood in the stools, acholic stools, black tarry stools, difficulty urinating. She denies a history of colonoscopy or EGD. Dr. Paige had asked us to evaluate patient given her nausea and 20 pound weight loss as he felt this was not due to her medications or postherpetic pain. She had abdominal ultrasound which showed gallbladder and common bile duct are distended with mild gallbladder wall thickening and a positive sonographic Hackett sign. She had trace sludge and stones within the common bile duct and common bile duct measuring 1.2 cm. She also had a CT scan of the abdomen and pelvis which only showed mild gallbladder distention. Her labs on presentation showed no leukocytosis and total bilirubin and LFTs and lipase within normal limits. Allergies Allergy/AdvReac Type Severity Reaction Status Date / Time tomato Allergy Anaphylaxis Unverified 01/29/19 20:19 FRUIT Allergy Anaphylaxis Uncoded 01/29/19 20:19 Home Medications Home Medications Medication Instructions Recorded Confirmed Type brimonidine [Alphagan P] 1 drp OPL TID 12/16/18 01/29/19 History latanoprost 1 drp OPB PM 12/16/18 01/29/19 History gabapentin 300 mg PO TID 01/29/19 01/29/19 History oxycodone 10 mg PO UD PRN 01/29/19 01/29/19 History Patient History Medical History H/O: HTN (hypertension) (Chronic) Shingles (Chronic) Surgical History No pertinent past surgical history Family History Other No pertinent family history Social History Preferred Language: Setswana Communication Ability: Effective 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 Beliefs That Will Affect Care: None Current Living Situation: Alone current occupational status: retired Other Information That Helps Us Care for You: No Feels Safe at Home: Yes Safety Concerns: Feels Safe At This Time Smoking Status: Never smoker Hx Alcohol Use: No Hx Substance Use: No Review of Systems Review of Systems: All systems reviewed & are unremarkable except as noted in HPI & below Physical Exam Constitutional: WD/WN, vitals as above + acute distress (mild, constantly moving due to pain) Respiratory: normal respiratory effort; no respiratory distress Gastrointestinal (Abdomen): Inspection/Auscultation: abdomen normal to inspection; abdomen not distended Percussion/Palpation: + abdomen tender (RUQ and epigastric region, tender right flank) Skin: no rashes, warm and dry Psychiatric: A+Ox3, euthymic affect Results & Data Vital Signs (Past 12 Hours) Vital Signs Temp Pulse Resp BP Pulse Ox 02/01/19 15:51 36.9 C 79 20 157/85 H 98 02/01/19 07:20 36.9 C 78 18 144/80 H 97 Laboratory Results 02/01/19 02/01/19 Range/Units 07:24 07:24 Sodium 138 (136-145) mmol/L Potassium 4.2 (3.5-5.1) mmol/L Chloride 104 (98-107) mmol/L Carbon Dioxide 27 (21-32) mmol/L Anion Gap 7.0 (3-11) BUN 13 (7-18) mg/dl Creatinine 1.21 H (0.6-1.2) mg/dl Est Cr Clr Drug Dosing 34.7 ml/min Est GFR ( Amer) 48.9 Est GFR (Non-Af Amer) 42.2 BUN/Creatinine Ratio 10.6 (10-20) Glucose 102 H (70-99) mg/dl Calcium 9.4 (8.5-10.1) mg/dl Total Bilirubin 0.5 (0.2-1) mg/dl Direct Bilirubin 0.1 (0-0.2) mg/dl AST 23 (15-37) U/L ALT 25 (12-78) U/L Alkaline Phosphatase 58 (45-117) U/L Total Protein 6.4 (6.4-8.2) gm/dl Albumin 3.3 L (3.4-5.0) gm/dl Diagnostic Findings ABDOMINAL ULTRASOUND, RIGHT UPPER QUADRANT HISTORY: weight loss, nausea, gall bladder distension on CT. COMPARISON: Abdomen and pelvis CT 01/29/2019. FINDINGS: Pancreas: The pancreas demonstrates a normal echotexture. Liver: Unremarkable. Gallbladder: The gallbladder is distended and filled with sludge. Mild gallbladder wall thickening measuring 3 mm. The technologist reported a positive sonographic Hackett's sign. CBD: Distended measuring 1.2 cm. Small amount of sludge/stones layering within the common bile duct. Right kidney: No hydronephrosis. IMPRESSION: The gallbladder and common bile duct are distended. There is mild gallbladder wall thickening with a positive sonographic Hackett's sign. Trace sludge/stones are within the common bile duct. Therefore, these findings are concerning for acute cholecystitis. Clinical correlation recommended. CT SCAN OF THE ABDOMEN AND PELVIS WITHOUT CONTRAST CLINICAL HISTORY: Hematuria, back pain. Possible pyelonephritis. COMPARISON STUDY: No previous studies for comparison. TECHNIQUE: CT scan of the abdomen and pelvis was performed from the lung bases to the proximal femurs. Images are reviewed in the axial, sagittal, and coronal planes. IV contrast was not administered for this examination. A dose lowering technique was utilized adhering to the principles of ALARA. CT DOSE: 307.26 mGy.cm FINDINGS: Lower chest: The heart is normal in size and configuration, without pericardial effusion. The lung bases and pleural spaces are clear. Liver: There is mild hepatic steatosis. No focal masses are visualized. There is no ductal dilatation. Gallbladder: Mildly distended. No calculi are visualized. Spleen: Normal in size and attenuation. Pancreas: Unremarkable. Adrenal glands: There is minor bilateral adrenal gland thickening Kidneys: No renal, ureteral, or bladder calculi are visualized. There is no hydronephrosis. The left kidney is slightly smaller than the right. Bowel: There are no transition zones indicate bowel obstruction. There is no evidence of acute appendicitis. There is no evidence of acute diverticulitis. Peritoneum: There is no intraperitoneal free air or abdominal ascites. There is a tiny fat-containing umbilical hernia. Vasculature: The abdominal aorta is normal in course and caliber. Adenopathy: None. Pelvic viscera: The bladder, and pelvic viscera are unremarkable. Skeletal structures: There is a scoliosis. There are multilevel degenerative changes. No destructive lesions are visualized. IMPRESSION: 1. No evidence of bowel obstruction. No evidence of free air 2. No renal, ureteral, or bladder calculi identified 3. No evidence of acute appendicitis. No evidence of acute diverticulitis 4. Mild gallbladder distention Electronically signed by: Wellington Hutchinson M.D. 01/29/2019 8:59 PM
--- NOTE | 2019-02-01 18:59 | Magnetic Resonance Report ---
MR MRCP CLINICAL HISTORY: gallstones, CBD dilation, normal LFTs gallbladder distention. Possible acute cholec ystitis. Possible common bile duct calculi. COMPARISON STUDY: Ultrasound dated 01/29/2019, CT scan dated 01/29/2019 FINDINGS: A breath-hold MRCP was performed. MIP images were acquired. There is hepatic steatosis. There is mild gallbladder distention. No gallbladder calculi are visualized. There is trace sludge in the gallbladder. Several cystic pancreatic lesions are visualized, the largest of which measures 11 mm and is located within the pancreatic tail. There is also a 1 cm lesion within the pancreatic neck. 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 There are no filling defects to indicate calculi. There is no pancreatic ductal dilatation. IMPRESSION: 1. Suspected trace sludge in the gallbladder 2. Minor dilatation of the common bile duct which measures 8 mm. No common bile duct filling defects identified. 3. Mild gallbladder distention 4. 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 Hepatic steatosis Electronically signed by: Wellington Hutchinson M.D. 02/01/2019 6:58 PM
[2019-02-01] MEDS: LATANOPROST 0.005% OP SOLN 2.5 ML BTL OPB SCH (20:35)
[2019-02-02] MEDS: ACETAMINOPHEN 500 MG TAB PO SCH ×3 (03:00→18:05)
[2019-02-02] MEDS: AMPICILLIN/SULBACTAM SOD 3,000 MG in 0.9 % SODIUM CHLORIDE 100 ML IV SCH ×4 (04:00→21:24)
[2019-02-02] MEDS: D5NSS + 20MEQ KCL 20 MEQ/1,000 ML BAG IV SCH ×3 (06:19→18:04)
[2019-02-02] MEDS: MoRPHine SULFATE 2 MG/ML CARP IV PRN ×4 (07:23→23:53)
[2019-02-02] MEDS: BRIMONIDINE TARTRATE OPL SCH ×3 (07:25→22:23)
[2019-02-02] MEDS: LIDOCAINE 5% 1 PATCH TD SCH (07:25)
[2019-02-02] MEDS: DULOXETINE HCL 20 MG CAP PO SCH (07:25)
[2019-02-02] MEDS: PREGABALIN 75 MG CAP PO SCH ×2 (07:26→21:27)
[2019-02-02] MEDS: CEROVITE ADV FORMULA TAB PO SCH (07:26)
[2019-02-02] MEDS: DICLOFENAC SOD 1% GEL 100 GM TUBE EXT SCH ×4 (07:26→21:26)
[2019-02-02 08:05] LABS: BUN Creatinine Ratio 10.7 (10-20); Calcium 8.3 mg/dl (8.5-10.1); Creatinine Clr Calc Pharmacy 37.8 ml/min; Est GFR (African American) 54.3; Est GFR (Non-African American) 46.9; Potassium 4.2 mmol/L (3.5-5.1)
[2019-02-02] MEDS: ONDANSETRON INJ 2 MG/ML 2 ML VIAL IV PRN (08:40)
[2019-02-02] MEDS: OXYCODONE HCL IR 5 MG TAB (IMMEDIATE RELEASE) PO PRN (08:40)
--- NOTE | 2019-02-02 09:35 | Pain Management Progress Note ---
Date of Service February 02, 2019 Assessment & Plan (1) Neuralgia, postherpetic: Continue Lyrica at 75mg PO BID. I would hold on further titrating upwards as she does appear slightly confused compared to baseline today. I have asked her to ask for a nurse before getting up to ambulate to the bathroom or the chair as she did report "seeing two moons last night". Continue Cymbalta 20mg daily, Lidocaine patch, Diclofenac gel. Continue Oxycodone 5mg PO and Morphine IV PRN. Pending gallbladder evaluation, she may be a candidate for an epidural injection. Subjective 79 year old white female with a significant history of post herpetic neuralgia, weight loss, and likely cholecystitis. Patient's Lyrica was increased from 50mg to 75mg BID yesterday. She does report moderate improvement in pain from the dosage increase. The sharp jolting and stabbing pain had slightly improved. She was able to sleep well throughout the night. She does admit to having some double vision today and feeling "out of it". The pain is currently rated 7/10. She is scheduled for MRCP today. General surgery has discussed a possible cholecystectomy but as the post herpetic neuralgia is located in the same region as the gall bladder, the patient is hesitant towards surgery. Patient denies any fevers, chills, vomiting, diarrhea, constipation. Case discussed with Dr. Keyona Meneses Pain Assessment Pain Assessment Full Body Front + Back: 1. [facility] Combined Pain Scale: 7-Severe - Pain prevents productive activity. Impossible to tolerate. Pain scale - at its best (0-10): 0 Pain scale - at its worst (0-10): 10 Physical Exam Physical Exam: GENERAL: 79 year old white female appears her stated age. Speech and cognition is intact. She does wince intermittently when she ex periences the sharp RUQ pain. HEAD: Normocephalic; atraumatic. EYES: Pupils are round, equal, and reactive to light; EOM intact. ENT: No external ear discharge or lesions. No rhinorrhea or epistaxis. No mucosal lesions. + dry mouth. CHEST: Regular chest respiration and excursion. ABDOMEN: Active bowel sounds throughout; TTP RUQ. There is allodynia and healed rash along the right T11 dermatome. NEURO: CN II-XII grossly intact with no focal deficits noted. Gait was not witnessed. SKIN: No lesions, erythema, or rashes noted.
--- NOTE | 2019-02-02 10:01 | Surgery Progress Note ---
Date of Service February 02, 2019 Assessment & Plan (1) Abnormal gall bladder diagnostic imagin-year-old female who presented to the ED with persistent and increasing abdominal pain with history of shingles in December and postherpetic neuralgia on pain medication. She also had a history of persistent nausea with a 20 pound weight loss in last [address] scan of the abdomen and pelvis in the emergency room showed gallbladder distention however no other findings. Upon further workup of her chronic nausea and 20 pound weight loss she had a gallbladder ultrasound which showed distended gallbladder with mild thickening of the gallbladder wall and a positive Hackett sign on examination. She also had dilated common bile duct at 1.2 cm with suggestion of trace sludge and stones in the common bile duct. Her labs on presentation included no leukocytosis and total bilirubin along with LFTs and lipase were completely within normal limits. Upon questioning she again reports dysphagia. MRCP was negative for filling defects, and showed "suspected" trace sludge in the gallbladder. Today her pain is both epigastric and right flank, with epigastric pain slightly more tender compared to yesterday. Had a lengthy discussion today with the patient, who does not wish to pursue cholecystectomy during this admission because of fear of "getting shingles in the wound" despite an extensive discussion about this. I do think that it is reasonable to try treating with a course of antibiotics. Today pt also reporting double vision, hallucinations, "feeling abnormal" and "not being able to think clearly" and other signs of delirium, though she is able to carry on a logical conversation Plan: - Trial with course of antibiotic treatment for possible cholecystitis, can transition to oral; f/u with gen surg as an outpatient in 2-4 weeks; if pt changes her mind or symptoms worsen can re-discuss surgical intervention - Recommend checking LFTs and CBC today given increased epigastric pain - Would recommend EGD for further workup of her dysphasia. Pt states she will consider this (discussed this with GI, who will discuss with the patient) - Pancreatic lesions: Possible side branch IPMNs - will need surveillance imaging as an outpatient - Discussed above plan and new onset of pt complaints/delirium with Dr. Grace Subjective Pt states pain is worse today. She now has right flank and epigastric pain. She is fidgeting in bed. She states overnight she became very confused, was having hallucinations, and now feels like she "can't think." Physical Exam Constitutional: no acute distress Respiratory: normal respiratory effort Cardiovascular: Rate/Rhythm: regular rate and regular rhythm Gastrointestinal (Abdomen): soft, nondistended, epigastric and right flank tenderness to palpation Neurologic: restless, fidgeting Results & Data Vital Signs (Past 12 Hours) Vital Signs Temp Pulse Resp BP BP Pulse Ox 02/02/19 07:13 36.9 C 69 18 148/77 H 97 02/01/19 22:44 36.9 C 94 H 18 130/73 97 Laboratory Results 02/02/19 Range/Units 07:00 Sodium 140 (136-145) mmol/L Potassium 4.2 (3.5-5.1) mmol/L Chloride 110 H (98-107) mmol/L Carbon Dioxide 26 (21-32) mmol/L Anion Gap 4.0 (3-11) BUN 12 (7-18) mg/dl Creatinine 1.11 (0.6-1.2) mg/dl Est Cr Clr Drug Dosing 37.8 ml/min Est GFR ( Amer) 54.3 Est GFR (Non-Af Amer) 46.9 BUN/Creatinine Ratio 10.7 (10-20) Glucose 107 H (70-99) mg/dl Calcium 8.3 L (8.5-10.1) mg/dl Specimen Hemolysis Diagnostic Findings (02/01/19) MRCP: 1. Suspected trace sludge in the gallbladder 2. Minor dilatation of the common bile duct which measures 8 mm. No common bile duct filling defects identified. 3. Mild gallbladder distention 4. 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 Hepatic steatosis
--- NOTE | 2019-02-02 11:35 | Gastroenterology Progress Note ---
Date of Service February 02, 2019 Assessment & Plan (1) Abnormal gall bladder diagnostic imagin79 year old female admitted w/ post-herpetic pain, abd imaging concerning for gallstones, GB wall thickening, CBD dilation and concern for layering stone/sludge. MRCP negative for obstruction. - LFTs normal - MRCP negative - No plan for ERCP - Consult general surgery - Reviewed, appreciate recommendations - GERD, globus, burping/belching - Please start PO PPI 40 mg daily - Can advance diet as tolerated GI to sign off. Thank you for allowing us to participate in the care of this patient. Please call with any acute changes, questions or concerns. Please see addendum below with additional recommendation from my supervising physician. Supervising Physician Co-Signing Physician Notes I have seen and examined the patient with CL Lance. PE: Gen- no acute distress, CV- rrr no mrg, Pulm- ctab, abd - soft nt nd +bs. MRCP reviewed. Lactobacillus UTI on ampicillin. She is not wanting an EGD while inpatient and has no overt dysphagia reported, ?globus sensation, this could be pursued as an outpatient. She is also not wanting an ERCP as well. Agree with further assessment in its entirety as per Marisel's assessment. Subjective Pt was seen and evaluated, chart reviewed. Is drowsy. Did not rest well. Abd pain persistent but slightly improved. No nausea, vomiting. She had previously reported dysphagia to other providers. Upon questiosn today she denies dysphagia. She does report globus sensation, GERD, regurgitaiton. Moves bowels. No black or bloody stools. MRCP: Suspected trace sludge in the gallbladder Minor dilatation of the common bile duct which measures 8 mm. No common bile duct filling defects identified. 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 Hepatic steatosis Review of Systems Constitutional: + weight loss; no fever, no body aches and no weakness Respiratory: no cough, no dyspnea, no pain on inspiration and no wheezing Cardiovascular: no chest pain, no radiating jaw, neck or arm pain, no dyspnea on exertion and no palpitations Gastrointestinal: + belching and + heartburn; no bloating, no early satiety, no nausea, no vomiting, no coffee ground emesis, no hematemesis, no pain with swallowing, no dysphagia, no cramping, no excessive flatulence, no change in bowel habits, no change in stools, no constipation, no diarrhea/loose stools, no fecal incontinence, no constant urge to pass stools, no blood in stools, no melena and no problem reported Physical Exam Constitutional: well developed and well nourished Respiratory: normal respiratory effort, lungs clear to auscultation Cardiovascular: RRR, no murmur, no edema Gastrointestinal (Abdomen): Inspection/Auscultation: abdomen normal to inspection Percussion/Palpation: + abdomen tender (right UQ), + guarding and abdomen soft; abdomen not rigid, no abdominal mass and no ascites Skin: no rashes, warm and dry Results & Data Vital Signs (Past 12 Hours) Vital Signs Temp Pulse Resp BP Pulse Ox 02/02/19 07:13 36.9 C 69 18 148/77 H 97 Laboratory Results 02/02/19 Range/Units 07:00 Sodium 140 (136-145) mmol/L Potassium 4.2 (3.5-5.1) mmol/L Chloride 110 H (98-107) mmol/L Carbon Dioxide 26 (21-32) mmol/L Anion Gap 4.0 (3-11) BUN 12 (7-18) mg/dl Creatinine 1.11 (0.6-1.2) mg/dl Est Cr Clr Drug Dosing 37.8 ml/min Est GFR ( Amer) 54.3 Est GFR (Non-Af Amer) 46.9 BUN/Creatinine Ratio 10.7 (10-20) Glucose 107 H (70-99) mg/dl Calcium 8.3 L (8.5-10.1) mg/dl Specimen Hemolysis
--- NOTE | 2019-02-02 11:44 | Hospitalist Progress Note ---
Date of Service February 02, 2019 Assessment & Plan (1) Abnormal gall bladder diagnostic imaging: CT at time of admission showed a distended gall bladder. She reported daily nausea, inability to eat, weight loss, and abdominal pain dating back to December. This abd pain is located in epigastric region and RUQ, as opposed to her shingles pain which is in RLQ and right lower back She blamed these symptoms on side effects from gabapentin & other meds for her shingles. RUQ u/s obtained overnight - highly concerning for acute cholecystitis and choledocholithiasis. 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 -continue IV Unasyn and then convert to Augmentin vs Cipro/Flagyl on dc for total 14 days -needs close outpt f/u with Gen Surgery (2) Neuralgia, postherpetic: T11 or T12 dermatome on right. Initial outbreak of rash - first week of December. Has no active skin lesions now but with evidence of scarring from old rash. s/p pain management consultation - appreciate their recs. did not tolerate gabapentin in the past. cymbalta and lyrica started on 01/31 for pain-really helping but is having some side effects of dizziness and temporary diplopia overnight which is now reoslved -continue Lyrica at same dose for now 75 bid -continue CYmbalta -cont lidoderm patches. -dc all opioids (3) Acute UTI: 2nd to lactobacillus. Unasyn will cover. (4) Severe protein-calorie malnutrition: 20+ pounds of weight loss in 6-8 weeks. I had hard time blaming all of this significant weight loss on side effects from gabapentin and/or other meds, but is possible -could be from gallbladder issues as well -- see above. (5) Weight loss: see discussion above. chronic cholecystitis? side effects from gabapentin and oxycodone at home with poor appetite? (6) Dizziness: likely secondary to Lyrica-common side effect, diplopia now resolved -follow -ok to continue Lyrica for now (7) Dysphagia: possibly secondary to med side effect -no EGD indicated for now as per my discussion with GI and pt's preference to not have one done -follow now that is off gabapentin and oxycodone (8) DVT prophylaxis: start Lovenox SCDs Dispo-remain here overnight for pain control, IV abx Subjective Pt reports her pain in the right lower back and radiating to the right lower abd from her shingles is much improved down to a 5/10 with the increased dose of Lyr ica, however is feeling dizzy and was "seeing two moons last night." Currently denies double vision, no nausea but has low appetite. She dis also have some epigastric and RUQ pain earlier this AM that is now improved. SHe was c/o trouble with swallowing but says it has all been since being on oxycodone and gabapentin at home and feels these meds make her dry in the mouth and have nausea, I discussed the case at length with both GI [employer] and Gen Surgeon today Review of Systems Review of Systems: All systems reviewed & are unremarkable except as noted in HPI & below Physical Exam Constitutional: WD/WN, vitals as above Eyes: PERRL, conjunctivae normal, anicteric sclerae ENMT: external ear and nose normal, oropharynx normal Neck: trachea midline, no thyromegaly Respiratory: normal respiratory effort, lungs clear to auscultation Cardiovascular: RRR, no murmur, no edema Gastrointestinal (Abdomen): normal bowel sounds, soft, nontender, no hepatosplenomegaly Musculoskeletal: Extremities: extremities normal to inspection; no cyanosis and no clubbing Skin: + rash (right lower back and right lower abd with mildly erythematous macular rash); no lesions (no vesicles) Neurologic: CN's II-XI intact bilaterally, moves all extremities and awake; no focal motor deficits Psychiatric: A+Ox3, euthymic affect Results & Data Vital Signs (Past 12 Hours) Vital Signs Temp Pulse Resp BP Pulse Ox 02/02/19 07:13 36.9 C 69 18 148/77 H 97 Laboratory Results 02/02/19 02/02/19 02/02/19 Range/Units 12:50 07:00 07:00 WBC 5.40 (4.8-10.8) K/uL RBC 4.02 L (4.2-5.4) M/uL Hgb 13.2 (12.0-16.0) g/dL Hct 38.8 (37-47) % MCV 96.5 (80-100) fL MCH 32.8 (25-34) pg MCHC 34.0 (32-36) g/dL RDW Std Deviation 53.7 H (36.4-46.3) fL RDW Coeff of Mikki 15.2 H (11.5-14.5) % Plt Count 255 (130-400) K/uL MPV 10.1 (7.4-10.4) fL Immature Gran % (Auto) 0.2 % Neut % (Auto) 55.1 % Lymph % (Auto) 31.9 % [place] % (Auto) 10.0 % Eos % (Auto) 2.4 % Baso % (Auto) 0.4 % Immature Gran # (Auto) 0.01 (0.00-0.02) K/uL Neut # (Auto) 2.98 (1.4-6.5) K/uL Lymph # (Auto) 1.72 (1.2-3.4) K/uL [place] # (Auto) 0.54 (0.11-0.59) K/uL Eos # (Auto) 0.13 (0-0.5) K/uL Baso # (Auto) 0.02 (0-0.2) K/uL Total Bilirubin 0.4 (0.2-1) mg/dl Direct Bilirubin 0.2 D (0-0.2) mg/dl AST 23 (15-37) U/L ALT 19 (12-78) U/L Alkaline Phosphatase 51 (45-117) U/L Total Protein 5.7 L (6.4-8.2) gm/dl Albumin 2.8 L (3.4-5.0) gm/dl Lipase 318 (73-393) U/L Diagnostic Findings MRCP: MR MRCP CLINICAL HISTORY: gallstones, CBD dilation, normal LFTs gallbladder distention. Possible acute cholecystitis. Possible common bile duct calculi. COMPARISON STUDY: Ultrasound dated 01/29/2019, CT scan dated 01/29/2019 FINDINGS: A breath-hold MRCP was performed. MIP images were acquired. There is hepatic steatosis. There is mild gallbladder distention. No gallbladder calculi are visualized. There is trace sludge in the gallbladder. Several cystic pancreatic lesions are visualized, the largest of which measures 11 mm and is located within the pancreatic tail. There is also a 1 cm lesion within the pancreatic neck. 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 There are no filling defects to indicate calculi. There is no pancreatic ductal dilatation. IMPRESSION: 1. Suspected trace sludge in the gallbladder 2. Minor dilatation of the common bile duct which measures 8 mm. No common bile duct filling defects identified. 3. Mild gallbladder distention 4. 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 Hepatic steatosis
[2019-02-02 11:58] LABS: Basophils # (auto) 0.02 K/uL (0-0.2); Basophils % (auto) 0.4 %; Eosinophils # (auto) 0.13 K/uL (0-0.5); Eosinophils % (auto) 2.4 %; Hematocrit (blood only) 38.8 % (37-47); Hemoglobin 13.2 g/dL (12.0-16.0); Immature Granulocytes # (auto) 0.01 K/uL (0.00-0.02); Immature Granulocytes % (auto) 0.2 %; Lymphocytes # (auto) 1.72 K/uL (1.2-3.4); Lymphocytes % (auto) 31.9 %; Mean Corpuscular Volume 96.5 fL (80-100); Mean Platelet Volume 10.1 fL (7.4-10.4); Monocytes # (auto) 0.54 K/uL (0.11-0.59); Neutrophils # (auto) 2.98 K/uL (1.4-6.5); Neutrophils % (auto) 55.1 %; Platelet Count 255 K/uL (130-400); RDW Coefficient of Variation 15.2 % (11.5-14.5); RDW Standard Deviation 53.7 fL (36.4-46.3); Red Blood Count 4.02 M/uL (4.2-5.4)
[2019-02-02 12:38] LABS: Albumin Level 2.8 gm/dl (3.4-5.0); Bilirubin,Total 0.4 mg/dl (0.2-1); Total Protein 5.7 gm/dl (6.4-8.2)
[2019-02-02] MEDS: LATANOPROST 0.005% OP SOLN 2.5 ML BTL OPB SCH (21:26)
[2019-02-03] MEDS: ACETAMINOPHEN 500 MG TAB PO SCH ×3 (01:44→17:21)
[2019-02-03] MEDS: AMPICILLIN/SULBACTAM SOD 3,000 MG in 0.9 % SODIUM CHLORIDE 100 ML IV SCH ×2 (01:45→09:17)
[2019-02-03] MEDS: D5NSS + 20MEQ KCL 20 MEQ/1,000 ML BAG IV SCH (05:16)
--- NOTE | 2019-02-03 08:51 | Surgery Progress Note ---
Date of Service February 03, 2019 Assessment & Plan (1) Abnormal gall bladder diagnostic imagin-year-old female who presented to the ED with persistent and increasing abdominal pain with history of shingles in December and postherpetic neuralgia on pain medication. She also had a history of persistent nausea with a 20 pound weight loss in last [address] scan of the abdomen and pelvis in the emergency room showed gallbladder distention however no other findings. Upon further workup of her chronic nausea and 20 pound weight loss she had a gallbladder ultrasound which showed distended gallbladder with mild thickening of the gallbladder wall and a positive Hackett sign on examination. She also had dilated common bile duct at 1.2 cm with suggestion of trace sludge and stones in the common bile duct. Her labs on presentation included no leukocytosis and total bilirubin along with LFTs and lipase were completely within normal limits. Upon questioning she again reports dysphagia. MRCP was negative for filling defects, and showed "suspected" trace sludge in the gallbladder. Plan: - Trial with course of antibiotic treatment for possible cholecystitis, can transition to oral; f/u with gen surg as an outpatient in 2-4 weeks - Okay for regular diet from surgical standpoint - Would recommend EGD for further workup of her dysphasia. 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 Please do not hesitate to contact us with any questions or concerns Subjective Pt still restless today and stating Raman is giving her "weird dreams," she is seeing double, and having trouble thinking. Denies epigastric pain. Wants regular food. Does not want EGD or surgery. Physical Exam Constitutional: no acute distress Respiratory: normal respiratory effort Cardiovascular: Rate/Rhythm: regular rate and regular rhythm Gastrointestinal (Abdomen): soft, nondistended, nontender Results & Data Vital Signs (Past 12 Hours) Vital Signs Temp Pulse Resp BP Pulse Ox 02/03/19 08:14 36.7 C 55 L 18 151/82 H 96 02/02/19 21:40 36.8 C 80 18 140/80 97 Laboratory Results 02/02/19 02/02/19 02/02/19 Range/Units 12:50 07:00 07:00 WBC 5.40 (4.8-10.8) K/uL RBC 4.02 L (4.2-5.4) M/uL Hgb 13.2 (12.0-16.0) g/dL Hct 38.8 (37-47) % MCV 96.5 (80-100) fL MCH 32.8 (25-34) pg MCHC 34.0 (32-36) g/dL RDW Std Deviation 53.7 H (36.4-46.3) fL RDW Coeff of Mikki 15.2 H (11.5-14.5) % Plt Count 255 (130-400) K/uL MPV 10.1 (7.4-10.4) fL Immature Gran % (Auto) 0.2 % Neut % (Auto) 55.1 % Lymph % (Auto) 31.9 % [place] % (Auto) 10.0 % Eos % (Auto) 2.4 % Baso % (Auto) 0.4 % Immature Gran # (Auto) 0.01 (0.00-0.02) K/uL Neut # (Auto) 2.98 (1.4-6.5) K/uL Lymph # (Auto) 1.72 (1.2-3.4) K/uL [place] # (Auto) 0.54 (0.11-0.59) K/uL Eos # (Auto) 0.13 (0-0.5) K/uL Baso # (Auto) 0.02 (0-0.2) K/uL Total Bilirubin 0.4 (0.2-1) mg/dl Direct Bilirubin 0.2 D (0-0.2) mg/dl AST 23 (15-37) U/L ALT 19 (12-78) U/L Alkaline Phosphatase 51 (45-117) U/L Total Protein 5.7 L (6.4-8.2) gm/dl Albumin 2.8 L (3.4-5.0) gm/dl Lipase 318 (73-393) U/L
[2019-02-03] MEDS: DULOXETINE HCL 20 MG CAP PO SCH (09:16)
[2019-02-03] MEDS: LIDOCAINE 5% 1 PATCH TD SCH (09:16)
[2019-02-03] MEDS: BRIMONIDINE TARTRATE OPL SCH ×3 (09:16→20:35)
[2019-02-03] MEDS: DICLOFENAC SOD 1% GEL 100 GM TUBE EXT SCH ×4 (09:17→20:42)
[2019-02-03] MEDS: CEROVITE ADV FORMULA TAB PO SCH (09:17)
[2019-02-03] MEDS: ONDANSETRON INJ 2 MG/ML 2 ML VIAL IV PRN ×2 (09:24→20:29)
--- NOTE | 2019-02-03 09:45 | Pain Management Progress Note ---
Date of Service February 03, 2019 Assessment & Plan (1) Neuralgia, postherpetic: 1. Lyrica is likely causing the patients confusion and double vision. Lyrica was discontinued. 2. Keppra 250mg PO BID was initiated to attempt to diminish neuropathic pain. 3. Continue Oxycodone 5mg PRN breakthrough pain. 4. Patient is again not a candidate for an epidural injection at this time due to concurrent cholecystitis. Once cholecystitis has resolved, may consider an injection to provide relief of post herpetic neuralgia. Subjective 79 year old white female with a significant history of post herpetic neuralgia, weight loss, and cholecystitis. Patient has refused an EGD and cholecystectomy at this time. She is currently on IV ABX treatment for cholecystectomy and will follow up with GI and general surgery on an outpatient basis. Patient was placed on Lyrica for post herpetic neuralgia pain. She is currently on 75mg PO BID. She has been having double vision, confused, and hearing noises such as a baby crying and dog barking in the hospital. Patient has previously tried gabapentin and experienced worsening nausea. Pain is rated 3/10 currently. Patient had #1 Oxycodone tablet yesterday. Case discussed with Dr. Keyona Meneses Pain Assessment Pain Assessment Full Body Front + Back: 1. [facility] Combined Pain Scale: 3-Mild - Interferes with pleasures of life. Stops some activities Physical Exam Physical Exam: GENERAL: 79 year old white female appears her stated age. Speech and cognition is intact. She does not appear in acute distress. HEAD: Normocephalic; atraumatic. EYES: Pupils are round, equal, and reactive to light; EOM intact. ENT: No external ear discharge or lesions. No rhinorrhea or epistaxis. No mucosal lesions. CHEST: Regular chest respiration and excursion. ABDOMEN: Active bowel sounds throughout; TTP RUQ. There is allodynia and healed rash along the right T11 dermatome. NEURO: CN II-XII grossly intact with no focal deficits noted. Gait was not witnessed.
[2019-02-03 10:26] LABS: INR 1.1 (0.9-1.1); Partial Thromboplastin Ratio 0.9; Partial Thromboplastin Time 23.2 Seconds (21.0-31.0); Prothrombin Time 11.3 Seconds (9.0-12.0)
[2019-02-03] MEDS: levETIRAcetam 250 MG TAB PO SCH ×2 (11:04→20:35)
[2019-02-03] MEDS: ENOXAPARIN INJ 40 MG/0.4 ML SYR SQ SCH (11:04)
--- NOTE | 2019-02-03 16:16 | Hospitalist Progress Note ---
Date of Service February 03, 2019 Assessment & Plan (1) Abnormal gall bladder diagnostic imaging: CT at time of admission showed a distended gall bladder. She reported daily nausea, inability to eat, weight loss, and abdominal pain dating back to December. This abd pain is located in epigastric region and RUQ, as opposed to her shingles pain which is in RLQ and right lower back She blamed these symptoms on side effects from gabapentin & other meds for her shingles. RUQ u/s obtained overnight - highly concerning for acute cholecystitis and choledocholithiasis. 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 Initial outbreak of rash - first week of December. Has no active skin lesions now but with evidence of scarring from old rash. s/p pain management consultation - appreciate their recs. did not tolerate gabapentin in the past. cymbalta and lyrica started on 01/31 for pain-really helping but is having continued with side effects of dizziness and temporary diplopia -dc Lyrica now and Pain Man started her on Keppra 250mg bid -continue CYmbalta 20mg daily and titrate up slowly -cont lidoderm patches. -dc all opioids -add toradol and tramadol prn (3) Acute UTI: 2nd to lactobacillus. Unasyn and now Augmentin will cover. (4) Severe protein-calorie malnutrition: 20+ pounds of weight loss in 6-8 weeks. I had hard time blaming all of this significant weight loss on side effects from gabapentin and/or other meds, but is possible -could be from gallbladder issues as well -- see above. (5) Weight loss: see discussion above. chronic cholecystitis? side effects from gabapentin and oxycodone at home with poor appetite? (6) Dizziness: likely secondary to Lyrica-common side effect, diplopia now resolved -now dc-ing Lyrica -follow to see if sxs improve (7) Dysphagia: possibly secondary to med side effect -no EGD indicated for now as per my discussion with GI and pt's preference to not have one done -follow now that is off gabapentin and oxycodone (8) Pancreas cyst: several likely sidebrance IPMNs seen on MRCP in pancreas -follow as outpt (9) DVT prophylaxis: Lovenox SCDs Dispo-remain here overnight for pain control Subjective Feeling better, pain is improved in right lower abdomen and rt flank. No epigastric pain today but appetite still very low. No nausea or vomiting though. Still feeling dizzy and Lyrica was now stopped today by Pain Man. Review of Systems Review of Systems: All systems reviewed & are unremarkable except as noted in HPI & below Physical Exam Constitutional: WD/WN, vitals as above Eyes: PERRL, conjunctivae normal, anicteric sclerae Neck: trachea midline, no thyromegaly Respiratory: normal respiratory effort, lungs clear to auscultation Cardiovascular: RRR, no murmur, no edema Gastrointestinal (Abdomen): Inspection/Auscultation: normal bowel sounds Percussion/Palpation: + abdomen tender (in RLQ and right flank, no rebound or guarding) and abdomen soft Musculoskeletal: Extremities: extremities normal to inspection; no cyanosis and no clubbing Skin: + rash (right lower back and right lower abd with mildly erythematous m acular rash); no lesions (no vesicles) Neurologic: moves all extremities and awake; no focal motor deficits Psychiatric: A+Ox3, euthymic affect Results & Data Vital Signs (Past 12 Hours) Vital Signs Temp Pulse Resp BP Pulse Ox 02/03/19 15:13 36.8 C 62 18 159/81 H 99 02/03/19 08:14 36.7 C 55 L 18 151/82 H 96 Laboratory Results 02/03/19 Range/Units 09:54 PT 11.3 (9.0-12.0) Seconds INR 1.1 (0.9-1.1) APTT 23.2 (21.0-31.0) Seconds PTT Ratio 0.9
[2019-02-03] MEDS: TRAMADOL HCL 50 MG TABLET PO PRN (17:15)
[2019-02-03] MEDS: AMOXICILLIN/CLAVULANATE 875 MG TAB PO SCH (17:20)
[2019-02-03] MEDS: LATANOPROST 0.005% OP SOLN 2.5 ML BTL OPB SCH (20:34)
[2019-02-03] MEDS: KETOROLAC TROMETHAMINE 15 MG/ML VIAL IV PRN (20:40)
[2019-02-04] MEDS: ACETAMINOPHEN 500 MG TAB PO SCH ×3 (01:47→17:32)
[2019-02-04] MEDS: KETOROLAC TROMETHAMINE 15 MG/ML VIAL IV PRN ×2 (03:48→09:26)
[2019-02-04] MEDS: ONDANSETRON INJ 2 MG/ML 2 ML VIAL IV PRN ×3 (03:52→17:30)
--- NOTE | 2019-02-04 08:48 | Pain Management Progress Note ---
Date of Service February 04, 2019 Assessment & Plan (1) Neuralgia, postherpetic: 1. Continue Cymbalta 20mg daily. May consider titrating upwards. 2. Continue Keppra 250mg PO BID to diminish neuropathic pain. 3. Continue Tramadol 50mg PO x 4 hours PRN breakthrough pain. 4. Patient is again not a candidate for an epidural injection at this time due to concurrent cholecystitis. Once cholecystitis has resolved, may consider an injection to provide relief of post herpetic neuralgia. 5. Pain Management will sign off on the patient. Thank you for the consultation. Subjective 79 year old white female with a significant history of post herpetic neuralgia, weight loss, and cholecystitis. Patient has refused an EGD and cholecystectomy at this time. She is currently on IV ABX treatment for cholecystitis and will follow up with GI and general surgery on an outpatient basis. Patient was placed on Lyrica for post herpetic neuralgia pain which caused confusion. Lyrica was discontinued and Keppra was initiated. She is currently on 250mg PO BID. Pain is rated 5/10 currently. She is reporting pain in the RUQ and has also been vomiting this morning. Oxycodone was discontinued and she was placed on Tramadol instead. She took tramadol once yesterday with mild efficacy. Case discussed with Dr. Keyona Meneses Physical Exam Physical Exam: GENERAL: 79 year old white female appears her stated age. Speech and cognition is intact. She does not appear in acute distress. CHEST: Regular chest respiration and excursion. ABDOMEN: Active bowel sounds throughout; TTP RUQ. There is allodynia and healed rash along the right T11 dermatome. NEURO: CN II-XII grossly intact with no focal deficits noted. Gait was not witnessed.
[2019-02-04] MEDS: LIDOCAINE 5% 1 PATCH TD SCH ×2 (09:00→10:58)
[2019-02-04] MEDS: BRIMONIDINE TARTRATE OPL SCH ×2 (09:00→14:39)
[2019-02-04 09:37] LABS: Basophils # (auto) 0.01 K/uL (0-0.2); Basophils % (auto) 0.2 %; Eosinophils # (auto) 0.06 K/uL (0-0.5); Eosinophils % (auto) 0.9 %; Hematocrit (blood only) 41.4 % (37-47); Hemoglobin 14.4 g/dL (12.0-16.0); Immature Granulocytes # (auto) 0.01 K/uL (0.00-0.02); Immature Granulocytes % (auto) 0.2 %; Lymphocytes # (auto) 1.07 K/uL (1.2-3.4); Lymphocytes % (auto) 16.6 %; Mean Corpuscular Hgb Conc 34.8 g/dL (32-36); Mean Corpuscular Volume 96.1 fL (80-100); Monocytes # (auto) 0.47 K/uL (0.11-0.59); Monocytes % (auto) 7.3 %; Neutrophils # (auto) 4.83 K/uL (1.4-6.5); Neutrophils % (auto) 74.8 %; Platelet Count 238 K/uL (130-400); RDW Standard Deviation 52.8 fL (36.4-46.3); Red Blood Count 4.31 M/uL (4.2-5.4); White Blood Count 6.45 K/uL (4.8-10.8)
[2019-02-04 10:06] LABS: Albumin Level 3.1 gm/dl (3.4-5.0); BUN Creatinine Ratio 6.9 (10-20); Bilirubin Direct 0.2 mg/dl (0-0.2); Calcium 8.9 mg/dl (8.5-10.1); Creatinine Clr Calc Pharmacy 36.2 ml/min; Est GFR (African American) 51.5; Est GFR (Non-African American) 44.4; Potassium 3.7 mmol/L (3.5-5.1)
[2019-02-04 10:09] LABS: Bilirubin,Total 0.6 mg/dl (0.2-1); Total Protein 6.4 gm/dl (6.4-8.2)
[2019-02-04] MEDS: TRAMADOL HCL 50 MG TABLET PO PRN ×2 (10:54→17:30)
[2019-02-04] MEDS: ENOXAPARIN INJ 40 MG/0.4 ML SYR SQ SCH (11:00)
[2019-02-04] MEDS: AMOXICILLIN/CLAVULANATE 875 MG TAB PO SCH ×2 (11:02→17:27)
[2019-02-04] MEDS: levETIRAcetam 250 MG TAB PO SCH ×2 (11:03→14:33)
[2019-02-04] MEDS: CEROVITE ADV FORMULA TAB PO SCH (11:03)
[2019-02-04] MEDS: DULOXETINE HCL 20 MG CAP PO SCH (11:03)
[2019-02-04] MEDS: DICLOFENAC SOD 1% GEL 100 GM TUBE EXT SCH ×4 (11:06→17:28)
--- NOTE | 2019-02-04 13:12 | XRay Report ---
CHEST AND ABDOMEN 2 VIEWS HISTORY: Vomiting, Abdominal pain COMPARISON: Abdomen and pelvis CT 01/29/2019. FINDINGS: The lungs are clear. The cardiomediastinal silhouette is within normal limits. There is no pneumoperitoneum or pneumatosis. The bowel gas pattern is unremarkable. No evidence for b owel obstruction. No renal or ureteral calculi. Multiple pelvic phleboliths are again noted. These re main unchanged. IMPRESSION: No acute cardiopulmonary process. No evidence for bowel obstruction. Electronically signed by: Felton Yeung M.D. 02/04/2019 1:09 PM
[2019-02-04] MEDS: D5W AND 1/2NSS + 20MEQ KCL 20 MEQ/1,000 ML BAG IV SCH (13:20)
--- NOTE | 2019-02-04 14:43 | Hospitalist Progress Note ---
Date of Service February 04, 2019 Assessment & Plan (1) Abnormal gall bladder diagnostic imaging: CT at time of admission showed a distended gall bladder. She reported daily nausea, inability to eat, weight loss, and abdominal pain dating back to December. This abd pain is located in epigastric region and RUQ, as opposed to her shingles pain which is in RLQ and right lower back She blamed these symptoms on side effects from gabapentin & other meds for her shingles. RUQ u/s - highly concerning for acute cholecystitis and choledocholithiasis. 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 Initial outbreak of rash - first week of December. Has no active skin lesions now but with evidence of scarring from old rash. s/p pain management consultation - appreciate their recs. did not tolerate gabapentin in the past. cymbalta and lyrica started on 01/31 for pain-really helping but is having continued with side effects of dizziness and temporary diplopia -now Lyrica discontinued and Pain Man started her on Keppra 250mg bid -continue CYmbalta 20mg daily and titrate up slowly -cont lidoderm patches. -continue toradol and tramadol prn breakthrough pain -pain ongoing (3) Acute UTI: 2nd to lactobacillus. Unasyn and now Augmentin will cover. (4) Severe protein-calorie malnutrition: 20+ pounds of weight loss in 6-8 weeks. I had hard time blaming all of this significant weight loss on side effects from gabapentin and/or other meds, but is possible -could be from gallbladder issues as well -- see above. (5) Weight loss: see discussion above. chronic cholecystitis? side effects from gabapentin and oxycodone at home with poor appetite? 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 Still with pain in RLQ but no epigastric pain. Is feeling "worse" but looks better to me Review of Systems Review of Systems: All systems reviewed & are unremarkable except as noted in HPI & below Physical Exam Constitutional: WD/WN, vitals as above Eyes: PERRL, conjunctivae normal, anicteric sclerae Neck: trachea midline, no thyromegaly Respiratory: normal respiratory effort, lungs clear to auscultation Cardiovascular: RRR, no murmur, no edema Gastrointestinal (Abdomen): normal bowel sounds, soft, nontender, no hepatosplenomegaly Inspection/Auscultation: normal bowel sounds Percussion/Palpation: + abdomen tender (in RLQ and right flank, no rebound or guarding) and abdomen soft Musculoskeletal: Extremities: extremities normal to inspection; no cyanosis an d no clubbing Skin: + rash (right lower back and right lower abd with mildly erythematous macular rash); no lesions (no vesicles) Neurologic: moves all extremities and awake; no focal motor deficits Psychiatric: A+Ox3, euthymic affect Results & Data Vital Signs (Past 12 Hours) Vital Signs Temp Pulse Resp BP Pulse Ox 02/04/19 07:12 36.9 C 89 18 145/79 H 97 Laboratory Results 02/04/19 02/04/19 Range/Units 09:20 09:20 WBC 6.45 (4.8-10.8) K/uL RBC 4.31 (4.2-5.4) M/uL Hgb 14.4 (12.0-16.0) g/dL Hct 41.4 (37-47) % MCV 96.1 (80-100) fL MCH 33.4 (25-34) pg MCHC 34.8 (32-36) g/dL RDW Std Deviation 52.8 H (36.4-46.3) fL RDW Coeff of Mikki 15.0 H (11.5-14.5) % Plt Count 238 (130-400) K/uL MPV 10.0 (7.4-10.4) fL Immature Gran % (Auto) 0.2 % Neut % (Auto) 74.8 % Lymph % (Auto) 16.6 % [place] % (Auto) 7.3 % Eos % (Auto) 0.9 % Baso % (Auto) 0.2 % Immature Gran # (Auto) 0.01 (0.00-0.02) K/uL Neut # (Auto) 4.83 (1.4-6.5) K/uL Lymph # (Auto) 1.07 L (1.2-3.4) K/uL [place] # (Auto) 0.47 (0.11-0.59) K/uL Eos # (Auto) 0.06 (0-0.5) K/uL Baso # (Auto) 0.01 (0-0.2) K/uL Sodium 138 (136-145) mmol/L Potassium 3.7 (3.5-5.1) mmol/L Chloride 108 H (98-107) mmol/L Carbon Dioxide 26 (21-32) mmol/L Anion Gap 4.0 (3-11) BUN 8 (7-18) mg/dl Creatinine 1.16 (0.6-1.2) mg/dl Est Cr Clr Drug Dosing 36.2 ml/min Est GFR ( Amer) 51.5 Est GFR (Non-Af Amer) 44.4 BUN/Creatinine Ratio 6.9 L (10-20) Glucose 132 H (70-99) mg/dl Calcium 8.9 (8.5-10.1) mg/dl Total Bilirubin 0.6 (0.2-1) mg/dl Direct Bilirubin 0.2 (0-0.2) mg/dl AST 19 (15-37) U/L ALT 22 (12-78) U/L Alkaline Phosphatase 62 (45-117) U/L Total Protein 6.4 (6.4-8.2) gm/dl Albumin 3.1 L (3.4-5.0) gm/dl Diagnostic Findings ABdomen xray personally reviewed by me--no obstruction
[2019-02-04] MEDS: LATANOPROST 0.005% OP SOLN 2.5 ML BTL OPB SCH (19:09)
[2019-02-04] MEDS: PROMETHAZINE HCL 12.5 MG in SODIUM CHLORIDE 0.9% 50 ML IV PRN (19:10)
[2019-02-05] MEDS: DICLOFENAC SOD 1% GEL 100 GM TUBE EXT SCH ×5 (00:18→20:28)
[2019-02-05] MEDS: BRIMONIDINE TARTRATE OPL SCH ×4 (00:18→20:30)
[2019-02-05] MEDS: D5W AND 1/2NSS + 20MEQ KCL 20 MEQ/1,000 ML BAG IV SCH ×2 (02:23→14:10)
[2019-02-05] MEDS: KETOROLAC TROMETHAMINE 15 MG/ML VIAL IV PRN ×2 (02:27→08:08)
[2019-02-05] MEDS: ACETAMINOPHEN 500 MG TAB PO SCH ×3 (02:28→18:40)
[2019-02-05] MEDS: TRAMADOL HCL 50 MG TABLET PO PRN ×4 (06:46→20:34)
[2019-02-05] MEDS: AMOXICILLIN/CLAVULANATE 875 MG TAB PO SCH ×2 (08:05→17:38)
[2019-02-05] MEDS: DULOXETINE HCL 20 MG CAP PO SCH (08:06)
[2019-02-05] MEDS: levETIRAcetam 250 MG TAB PO SCH ×2 (08:06→20:29)
[2019-02-05] MEDS: CEROVITE ADV FORMULA TAB PO SCH (08:07)
[2019-02-05] MEDS: LIDOCAINE 5% 1 PATCH TD SCH (08:07)
[2019-02-05] MEDS: ENOXAPARIN INJ 40 MG/0.4 ML SYR SQ SCH ×2 (08:08→08:15)
[2019-02-05] MEDS: ONDANSETRON INJ 2 MG/ML 2 ML VIAL IV PRN ×2 (09:45→16:48)
[2019-02-05] MEDS: LATANOPROST 0.005% OP SOLN 2.5 ML BTL OPB SCH (20:29)
--- NOTE | 2019-02-06 | Hospitalist Progress Note ---
Date of Service February 05, 2019 Assessment & Plan (1) Abnormal gall bladder diagnostic imaging: CT at time of admission showed a distended gall bladder. She reported daily nausea, inability to eat, weight loss, and abdominal pain dating back to December. This abd pain is located in epigastric region and RUQ, as opposed to her shingles pain which is in RLQ and right lower back She blamed these symptoms on side effects from gabapentin & other meds for her shingles. RUQ u/s - highly concerning for acute cholecystitis and choledocholithiasis. 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 Initial outbreak of rash - first week of December. Has no active skin lesions now but with evidence of scarring from old rash. s/p pain management consultation - appreciate their recs. did not tolerate gabapentin in the past. cymbalta and lyrica started on 01/31 for pain-really helping but is having continued with side effects of dizziness and temporary diplopia -now Lyrica discontinued and Pain Man started her on Keppra 250mg bid Having some relief today of pain overall. -increase CYmbalta to 30mg daily -cont lidoderm patches. -dc toradol -increase tramadol to 100mg q6h prn breakthrough pain -continue keppra 250mg po bid (3) Acute UTI: 2nd to lactobacillus. Unasyn and now Augmentin will cover. (4) Severe protein-calorie malnutrition: 20+ pounds of weight loss in 6-8 weeks. I had hard time blaming all of this significant weight loss on side effects from gabapentin and/or other meds, but is possible -could be from gallbladder issues as well -- see above. (5) Weight loss: see discussion above. chronic cholecystitis? side effects from gabapentin and oxycodone at home with poor appetite? (6) Dizziness: likely secondary to Lyrica-common side effect, diplopia now resolved Dizziness now resolved off Lyrica (7) Dysphagia: possibly secondary to med side effect -no EGD indicated for now as per my discussion with GI and pt's preference to not have one done -follow now that is off gabapentin and oxycodone (8) Pancreas cyst: several likely sidebrance IPMNs seen on MRCP in pancreas -follow as outpt (9) DVT prophylaxis: Lovenox SCDs Dispo-remain here overnight for pain control -hopeful for discharge tomrorow Subjective Feeling less pain in the right flank and only having pain nowin RLQ. No epigastric pain. No further N/V today but appetite remains poor. No more diz ziness and feels more steady on feet. feels the tramadol is not helping much Review of Systems Review of Systems: All systems reviewed & are unremarkable except as noted in HPI & below Physical Exam Constitutional: WD/WN, vitals as above Eyes: PERRL, conjunctivae normal, anicteric sclerae ENMT: external ear and nose normal, oropharynx normal Neck: trachea midline, no thyromegaly Respiratory: normal respiratory effort, lungs clear to auscultation Cardiovascular: RRR, no murmur, no edema Gastrointestinal (Abdomen): normal bowel sounds, soft, nontender, no hepatosplenomegaly Inspection/Auscultation: normal bowel sounds Percussion/Palpation: + abdomen tender (in RLQ and right flank, no rebound or guarding) and abdomen soft Musculoskeletal: Extremities: extremities normal to inspection; no cyanosis and no clubbing Skin: + rash (right lower back and right lower abd with mildly erythematous macular rash); no lesions (no vesicles) Neurologic: moves all extremities and awake; no focal motor deficits Psychiatric: A+Ox3, euthymic affect Results & Data Vital Signs (Past 12 Hours) Vital Signs Temp Pulse Resp BP Pulse Ox 02/05/19 15:12 36.8 C 76 20 143/73 H 98
[2019-02-06] MEDS: TRAMADOL HCL 50 MG TABLET PO PRN ×3 (02:39→14:18)
[2019-02-06] MEDS: ACETAMINOPHEN 500 MG TAB PO SCH ×3 (02:41→18:22)
[2019-02-06] MEDS: AMOXICILLIN/CLAVULANATE 875 MG TAB PO SCH ×2 (08:08→18:22)
[2019-02-06] MEDS: levETIRAcetam 250 MG TAB PO SCH (08:09)
[2019-02-06] MEDS: LIDOCAINE 5% 1 PATCH TD SCH (08:09)
[2019-02-06] MEDS: DICLOFENAC SOD 1% GEL 100 GM TUBE EXT SCH ×4 (08:09→21:55)
[2019-02-06] MEDS: CEROVITE ADV FORMULA TAB PO SCH (08:09)
[2019-02-06] MEDS: BRIMONIDINE TARTRATE OPL SCH ×3 (08:09→21:56)
[2019-02-06] MEDS: DULOXETINE HCL 30 MG CAP PO SCH (08:09)
[2019-02-06] MEDS: ENOXAPARIN INJ 40 MG/0.4 ML SYR SQ SCH (08:09)
--- NOTE | 2019-02-06 14:14 | Hospitalist Progress Note ---
Date of Service February 06, 2019 Assessment & Plan (1) Abnormal gall bladder diagnostic imaging: CT at time of admission showed a distended gall bladder. She reported daily nausea, inability to eat, weight loss, and abdominal pain dating back to December. This abd pain is located in epigastric region and RUQ, as opposed to her shingles pain which is in RLQ and right lower back She blamed these symptoms on side effects from gabapentin & other meds for her shingles. RUQ u/s - was highly concerning for acute cholecystitis and choledocholithiasis. 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 vs secondary to severe pain from shingles? 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 Initial outbreak of rash - first week of December. Has no active skin lesions now but with evidence of scarring from old rash. s/p pain management consultation - appreciate their recs. -did not tolerate gabapentin in the past. Toradol, morphine, oxycodone all did not help pain and caused worsening nausea/vomiting -cymbalta and lyrica started on 01/31 for pain-really helping but was having severe side effects of dizziness ,diplopia, hallucinations with Lyrica -now Lyrica discontinued and Pain Man started her on Keppra 250mg bid So far, minimal pain relief -increased CYmbalta to 30mg daily -cont lidoderm patches. -continue tramadol to 100mg q6h prn breakthrough pain -increase keppra to 500mg po bid (3) Acute UTI: 2nd to . Unasyn and now Augmentin will cover. (4) Severe protein-calorie malnutrition: 20+ pounds of weight loss in 6-8 weeks. I had hard time blaming all of this significant weight loss on side effects from gabapentin and/or other meds, but is possible -could be from gallbladder issues as well -- see above. (5) Weight loss: see discussion above. chronic cholecystitis? side effects from gabapentin and oxycodone at home with poor appetite? (6) Dizziness: likely secondary to Lyrica-common side effect, diplopia now resolved Dizziness now resolved off Lyrica (7) Dysphagia: possibly secondary to med side effect -no EGD indicated for now as per my discussion with GI and pt's preference to not have one done -follow now that is off gabapentin and oxycodone -seems to be improved (8) Pancreas cyst: several likely sidebrance IPMNs seen on MRCP in pancreas -follow as outpt (9) DVT prophylaxis: Lovenox SCDs Dispo-discharge planning is for SNF hopefully tomorrow-referral made to [facility] Pt still having nausea, no vomiting today. Pain is still a 9/10 at best in her RLQ and flank. Doesn't think tramadol makes a difference. Not dizzy anymore. Does not think she can go home and take care of herself. Is barely eating-only had 1 Boost and some bluberries today Review of Systems Review of Systems: All systems reviewed & are unremarkable except as noted in HPI & below Physical Exam Constitutional: WD/WN, vitals as above Eyes: PERRL, conjunctivae normal, anicteric sclerae ENMT: external ear and nose normal, oropharynx normal Neck: trachea midline, no thyromegaly Respiratory: normal respiratory effort, lungs clear to auscultation Cardiovascular: RRR, no murmur, no edema Gastrointestinal (Abdomen): normal bowel sounds, soft, nontender, no hepatosplenomegaly Inspection/Auscultation: normal bowel sounds Percussion/Palpation: + abdomen tender (in RLQ and right flank, no rebound or guarding) and abdomen soft Musculoskeletal: Extremities: extremities normal to inspection; no cyanosis and no clubbing Skin: + rash (right lower back and right lower abd with mildly erythematous macular rash); no lesions (no vesicles) Neurologic: moves all extremities and awake; no focal motor deficits Psychiatric: A+Ox3, euthymic affect Results & Data Vital Signs (Past 12 Hours) Vital Signs Temp Pulse Resp BP Pulse Ox 02/06/19 07:38 37 C 93 H 18 152/82 H 99
[2019-02-06] MEDS: PROMETHAZINE HCL 12.5 MG in SODIUM CHLORIDE 0.9% 50 ML IV PRN (19:39)
[2019-02-06] MEDS: levETIRAcetam 500 MG TAB PO SCH (21:56)
[2019-02-06] MEDS: LATANOPROST 0.005% OP SOLN 2.5 ML BTL OPB SCH (21:56)
[2019-02-07] MEDS: ACETAMINOPHEN 500 MG TAB PO SCH ×3 (02:38→18:55)
[2019-02-07] MEDS: LIDOCAINE 5% 1 PATCH TD SCH (03:00)
[2019-02-07] MEDS: DULOXETINE HCL 30 MG CAP PO SCH (08:15)
[2019-02-07] MEDS: BRIMONIDINE TARTRATE OPL SCH ×3 (08:15→21:21)
[2019-02-07] MEDS: AMOXICILLIN/CLAVULANATE 875 MG TAB PO SCH ×2 (08:15→16:49)
[2019-02-07] MEDS: levETIRAcetam 500 MG TAB PO SCH ×2 (08:15→21:21)
[2019-02-07] MEDS: DICLOFENAC SOD 1% GEL 100 GM TUBE EXT SCH ×4 (08:16→21:22)
[2019-02-07] MEDS: ENOXAPARIN INJ 40 MG/0.4 ML SYR SQ SCH (08:16)
[2019-02-07] MEDS: CEROVITE ADV FORMULA TAB PO SCH (08:16)
[2019-02-07] MEDS: TRAMADOL HCL 50 MG TABLET PO PRN ×3 (08:19→23:52)
[2019-02-07] MEDS: ONDANSETRON INJ 2 MG/ML 2 ML VIAL IV PRN ×2 (08:20→14:25)
[2019-02-07] MEDS ORDERED: PANTOprazole 40 MG TAB PO STA (14:42)
[2019-02-07] MEDS: DRONABINOL 2.5 MG CAP PO SCH (16:49)
[2019-02-07] MEDS: PROMETHAZINE HCL 12.5 MG in SODIUM CHLORIDE 0.9% 50 ML IV PRN (18:55)
--- NOTE | 2019-02-07 20:23 | Hospitalist Progress Note ---
Date of Service February 07, 2019 Assessment & Plan (1) Abnormal gall bladder diagnostic imaging: CT at time of admission showed a distended gall bladder. RUQ u/s highly concerning for acute cholecystitis and choledocholithiasis. MRCP did not support RUQ u/s findings however. GI and gen surg saw patient - she refused MRCP and refused elective lap bnita. She has lost 9-10 pounds of weight since admission based on today's weight. She continues with upper abd pain, nausea, etc. I am still concerned she has ongoing biliary tract issues. She cannot leave the hospital with ongoing weight loss, nausea, inability to eat, etc. Plan - repeat LFTs in am HIDA scan tomorrow HIDA scan will dictate plan of care try marinol once daily for nausea and appetite stimulation continue augmentin BID x 6 more days. 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 Initial outbreak of rash - first week of December. Has no active skin lesions. s/p pain management consultation - appreciate their recs. did not tolerate gabapentin in the past. cymbalta and lyrica started earlier this admission. has tolerated cymbalta including titration to 30mg/day. did NOT tolerate lyrica and thus it was stopped. continues w/ lidoderm patches. keppra started by pain management -- titrated to 500mg BID this weekend w/o adverse side effects. will only be candidate for nerve block once gall bladder issue is resolved. I still have hard time believing that weight loss, nausea, emesis, anorexia is due to the post-herpetic neuralgia state OR side effects from meds being used to Rx her pain She had impressive weight loss at home and has continue this here at [facility] see below (3) Acute UTI: 2nd to lactobacillus. unasyn then augmentin -resolved (4) Severe protein-calorie malnutrition: 20+ pounds of weight loss in 6-8 weeks. additional weight loss while hospitalized. start marinol daily. MVI. boost BID. see discussion above (5) Weight loss: see discussion above. chronic cholecystitis? Biliary tract cancer? other? (6) DVT prophylaxis: lovenox daily may not qualify for SNF for rehab based on how well she is doing with PT, OT [place] Subjective pt continues with abdominal pain in 2 locations -- upper abdomen, and lower right abdomen in original location of shingles. she still has no appetite. when she does try to eat she has nausea. had emesis x 1 today. still with "poor taste." she said to me today "I didn't know that my gall bladder was sick". she doesn't feel like she could return home in her current state. Review of Systems Constitutional: + fatigue and + anorexia; no fever and no chills Respiratory: no cough and no dyspnea Cardiovascular: no chest pain Physical Exam Constitutional: no acute distress, not obese and no altered mental status ENMT: Mouth: + oral mucosal abnormality (?thrush (irritation buccal mucosa)) Respiratory: normal respiratory effort, lungs clear to auscultation Cardiovascular: RRR, no murmur, no edema Heart Sounds: normal S1 and normal S2 Vessels: posterior tibial pulses present and dorsalis pedis pulses present; no JVD Gastrointestinal (Abdomen): tender high epigastric region; tender with light touch over RLQ abdominal wall Psychiatric: Orientation: alert and oriented x 3 Mood: + depressed mood Results & Data Vital Signs (Past 12 Hours) Vital Signs Temp Pulse Resp BP Pulse Ox 02/07/19 15:51 37 C 82 18 153/92 H 95
[2019-02-07] MEDS: LATANOPROST 0.005% OP SOLN 2.5 ML BTL OPB SCH (21:21)
[2019-02-07] MEDS: NYSTATIN SUSP 500,000 U/5 ML UDC PO SCH (21:25)
[2019-02-08] MEDS ORDERED: DiphenhydrAMINE HCL 50 MG/ML VIAL IV STA (00:40)
[2019-02-08] MEDS: ACETAMINOPHEN 500 MG TAB PO SCH ×3 (01:01→17:11)
[2019-02-08 07:26] LABS: Basophils # (auto) 0.03 K/uL (0-0.2); Basophils % (auto) 0.4 %; Eosinophils # (auto) 0.11 K/uL (0-0.5); Eosinophils % (auto) 1.4 %; Hemoglobin 15.9 g/dL (12.0-16.0); Immature Granulocytes # (auto) 0.01 K/uL (0.00-0.02); Immature Granulocytes % (auto) 0.1 %; Lymphocytes # (auto) 2.31 K/uL (1.2-3.4); Lymphocytes % (auto) 29.5 %; Mean Corpuscular Hgb Conc 36.1 g/dL (32-36); Mean Corpuscular Volume 93.8 fL (80-100); Monocytes # (auto) 1.07 K/uL (0.11-0.59); Monocytes % (auto) 13.6 %; Neutrophils # (auto) 4.31 K/uL (1.4-6.5); Platelet Count 264 K/uL (130-400); RDW Coefficient of Variation 15.1 % (11.5-14.5); RDW Standard Deviation 51.5 fL (36.4-46.3); Red Blood Count 4.69 M/uL (4.2-5.4); White Blood Count 7.84 K/uL (4.8-10.8)
[2019-02-08 07:59] LABS: Albumin Level 3.2 gm/dl (3.4-5.0); BUN Creatinine Ratio 12.1 (10-20); Calcium 9.3 mg/dl (8.5-10.1); Creatinine Clr Calc Pharmacy 35.6 ml/min; Est GFR (African American) 50.4; Est GFR (Non-African American) 43.5; Potassium 3.5 mmol/L (3.5-5.1)
[2019-02-08 08:02] LABS: Albumin Globulin Ratio 0.9 (0.9-2); Bilirubin,Total 0.6 mg/dl (0.2-1); Globulin 3.4 gm/dl (2.5-4.0); Total Protein 6.6 gm/dl (6.4-8.2)
[2019-02-08] MEDS ORDERED: SINCALIDE 1.4 MCG in 0.9 % SODIUM CHLORIDE 100 ML IV SCH (08:30)
[2019-02-08] MEDS ORDERED: MoRPHine SULFATE 2 MG/ML CARP ONE (09:16)
--- NOTE | 2019-02-08 10:14 | Nuclear Medicine Report ---
NUCLEAR HEPATOBILIARY SCAN CLINICAL HISTORY: Acute cholecystitis. COMPARISON STUDY: Abdominal CT dated 01/29/2019. Abdominal ultrasound dated 01/31/2019. TECHNIQUE: Dynamic images of the liver and anterior abdomen were obtained every 5 minutes for a total of 60 minutes following the IV administration of 5.4mCi of technetium 99m Choletec. The gallbladder was not visualized by 60 minutes. 2 mg of IV morphine was then administered with additional imaging p erformed every 5 minutes for an additional 25 minutes. FINDINGS: The hepatobiliary scan shows prompt and homogeneous hepatic uptake. There is visualized act ivity within the intra and extrahepatic biliary tree at 10 minutes. There is normal biliary to bowel transit, with small bowel visualized by 40 minutes. The gallbladder was not visualized by 60 minutes . There was visualization of the gallbladder at 70 minutes following morphine administration. IMPRESSION: 1. Nonvisualization of the gallbladder at 60 minutes. 2. The gallbladder was visualized following morphine administration at 70 minutes. These findings ind icate gallbladder dysfunction and possible chronic cholecystitis. There is no evidence of cystic duct obstruction. Electronically signed by: Leo Trevino M.D. 02/08/2019 10:13 AM
[2019-02-08] MEDS: BRIMONIDINE TARTRATE OPL SCH ×4 (10:30→21:36)
[2019-02-08] MEDS: levETIRAcetam 500 MG TAB PO SCH ×2 (10:30→21:35)
[2019-02-08] MEDS: AMOXICILLIN/CLAVULANATE 875 MG TAB PO SCH ×2 (10:30→17:04)
[2019-02-08] MEDS: LIDOCAINE 5% 1 PATCH TD SCH (10:30)
[2019-02-08] MEDS: DULOXETINE HCL 30 MG CAP PO SCH (10:30)
[2019-02-08] MEDS: PANTOprazole 40 MG TAB PO SCH (10:31)
[2019-02-08] MEDS: NYSTATIN SUSP 500,000 U/5 ML UDC PO SCH ×5 (10:31→21:35)
[2019-02-08] MEDS: CEROVITE ADV FORMULA TAB PO SCH (10:31)
[2019-02-08] MEDS: DICLOFENAC SOD 1% GEL 100 GM TUBE EXT SCH ×4 (10:31→21:35)
[2019-02-08] MEDS: TRAMADOL HCL 50 MG TABLET PO PRN ×3 (10:32→21:39)
[2019-02-08] MEDS: ENOXAPARIN INJ 40 MG/0.4 ML SYR SQ SCH (10:32)
[2019-02-08] MEDS: ONDANSETRON INJ 2 MG/ML 2 ML VIAL IV PRN (10:32)
--- NOTE | 2019-02-08 12:38 | Gastroenterology Progress Note ---
Date of Service February 08, 2019 Assessment & Plan (1) Abnormal gall bladder diagnostic imagin79 year old female admitted w/ post-herpetic pain, abd imaging concerning for gallstones, GB wall thickening, CBD dilation and concern for layering stone/sludge. MRCP negative for obstruction, HIDA concerning for acute cholecystitis - GI asked to evaluate to rule out additional etiology of abd pain, nausea and vomiting - NPO after midnight - EGD 02/09/19 - LFTs normal - Lipase normal - MRCP negative - No plan for ERCP - PO PPI 40 daily - Appreciate ongoing general surgery recommendations Thank you for allowing us to participate in the care of this patient. Please call with any acute changes, questions or concerns. Please see addendum below with additional recommendation from my supervising physician. Supervising Physician Co-Signing Physician Notes I have performed a history and physical examination of this patient and reviewed the electronic medical record. Specifically, on physical examination there is moderate RUQ tenderness. I have discussed the case with CL Lance. The above note reflects my findings, conclusions, and recommendations. Abiel Zuleta MD Subjective GI asked to re-evalutaed. Admitted w/ post-herpetic pain. Abd imaging also concerning for cholecystitis. Remains symptomatic. Constant RUQ pain worse post-prandially. Associated w/ decreased appetite, nausea and vomiting. no black or bloody emesis. Moving bowels well, no black or bloody stools. Weight loss this admission. No fever, chills, CP, SOB. EGD/Colon no priors LFTs: non-elevated Lipase: non-elevated HIDA: Nonvisualization of the gallbladder at 60 minutes. The gallbladder was visualized following morphine administration at 70 minutes. These findings indicate gallbladder dysfunction and possible chronic cholecystitis. There is no evidence of cystic duct obstruction MRCP: Suspected trace sludge in the gallbladderMinor dilatation of the common bile duct which measures 8 mm. No common bile duct filling defects identified.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Hepatic steatosis ABD US: The gallbladder and common bile duct are distended. There is mild gallbladder wall thickening with a positive sonographic Hackett's sign. Trace sludge/stones are within the common bile duct. Therefore, these findings are concerning for acute cholecystitis. Clinical correlation recommended. CT: No evidence of bowel obstruction. No evidence of free airNo renal, ureteral, or bladder calculi identifiedNo evidence of acute appendicitis. No evidence of acute diverticulitis Mild gallbladder distention Review of Systems Constitutional: + weight loss; no fever, no body aches and no weakness Respiratory: no cough, no dyspnea, no pain on inspiration and no wheezing Cardiovascular: no chest pain, no radiating jaw, neck or arm pain, no dyspnea on exertion and no palpitations Gastrointestinal: + abdominal pain, + early satiety, + nausea and + vomiting; no belching, no bloating, no heartburn, no coffee ground emesis, no hematemesis, no pain with swallowing, no dysphagia, no cramping, no excessive flatulence, no change in bowel habits, no change in stools, no constipation, no diarrhea/loose stools, no fecal incontinence, no constant urge to pass stools, no blood in stools, no melena and no problem reported Physical Exam Constitutional: WD/WN, vitals as above Respiratory: normal respiratory effort, lungs clear to auscultation Cardiovascular: RRR, no murmur, no edema Gastrointestinal (Abdomen): Inspection/Auscultation: abdomen normal to inspection and normal bowel sounds; abdomen not distended Percussion/Palpation: + abdomen tender (RUQ) and abdomen soft; no guarding, abdomen not rigid and no abdominal mass Skin: no rashes, warm and dry Results & Data Vital Signs (Past 12 Hours) Vital Signs Temp Pulse Resp BP Pulse Ox 02/08/19 07:30 36.6 C 91 H 16 111/80 97 Laboratory Results 02/08/19 02/08/19 Range/Units 07:08 07:08 WBC 7.84 (4.8-10.8) K/uL RBC 4.69 (4.2-5.4) M/uL Hgb 15.9 (12.0-16.0) g/dL Hct 44.0 (37-47) % MCV 93.8 (80-100) fL MCH 33.9 (25-34) pg MCHC 36.1 H (32-36) g/dL RDW Std Deviation 51.5 H (36.4-46.3) fL RDW Coeff of Mikki 15.1 H (11.5-14.5) % Plt Count 264 (130-400) K/uL MPV 10.0 (7.4-10.4) fL Immature Gran % (Auto) 0.1 % Neut % (Auto) 55.0 % Lymph % (Auto) 29.5 % [place] % (Auto) 13.6 % Eos % (Auto) 1.4 % Baso % (Auto) 0.4 % Immature Gran # (Auto) 0.01 (0.00-0.02) K/uL Neut # (Auto) 4.31 (1.4-6.5) K/uL Lymph # (Auto) 2.31 (1.2-3.4) K/uL [place] # (Auto) 1.07 H (0.11-0.59) K/uL Eos # (Auto) 0.11 (0-0.5) K/uL Baso # (Auto) 0.03 (0-0.2) K/uL Sodium 138 (136-145) mmol/L Potassium 3.5 (3.5-5.1) mmol/L Chloride 103 (98-107) mmol/L Carbon Dioxide 25 (21-32) mmol/L Anion Gap 9.0 (3-11) BUN 14 (7-18) mg/dl Creatinine 1.18 (0.6-1.2) mg/dl Est Cr Clr Drug Dosing 35.6 ml/min Est GFR ( Amer) 50.4 Est GFR (Non-Af Amer) 43.5 BUN/Creatinine Ratio 12.1 (10-20) Glucose 89 (70-99) mg/dl Calcium 9.3 (8.5-10.1) mg/dl Total Bilirubin 0.6 (0.2-1) mg/dl AST 22 (15-37) U/L ALT 29 (12-78) U/L Alkaline Phosphatase 64 (45-117) U/L Total Protein 6.6 (6.4-8.2) gm/dl Albumin 3.2 L (3.4-5.0) gm/dl Globulin 3.4 (2.5-4.0) gm/dl Albumin/Globulin Ratio 0.9 (0.9-2)
[2019-02-08] MEDS: DRONABINOL 2.5 MG CAP PO SCH (17:04)
--- NOTE | 2019-02-08 21:32 | Hospitalist Progress Note ---
Date of Service February 08, 2019 Assessment & Plan (1) Abnormal gall bladder diagnostic imaging: CT at time of admission showed a distended gall bladder. RUQ u/s highly concerning for acute cholecystitis and choledocholithiasis. MRCP did not support RUQ u/s findings however. GI and gen surg saw patient - she refused MRCP and refused elective lap bnita. She has lost 9-10 pounds of weight since admission. She continues with upper abd pain, nausea, etc. She has been unable to eat. HIDA scan today with chronic cholecystitis. I spoke with general surgery -- Dr. Sinha -- they are willing to perform lap binta later this week. She requested, however, EGD by gastroenterology to ensure no PUD, esophageal or gastric ca, etc as alternative diagnosis that could be giving her the GI symptoms. [facility] saw patient today -- plan for EGD tomorrow am. LFTs, cbc, etc remain stable. cont augmentin BID x 5 more days to cover the gall bladder and ? 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 Initial outbreak of rash - first week of December. Has no active skin lesions. s/p pain management consultation - appreciate their recs. did not tolerate gabapentin in the past. cymbalta and lyrica started earlier this admission. has tolerated cymbalta including titration to 30mg/day. did NOT tolerate lyrica and thus it was stopped. continues w/ lidoderm patches. keppra started by pain management -- titrated to 500mg BID this past weekend w/o adverse side effects. will only be candidate for nerve block once gall bladder issue is resolved. no changes in location or severity of pain today (3) Acute UTI: 2nd to lactobacillus. unasyn then augmentin -resolved (4) Severe protein-calorie malnutrition: 20+ pounds of weight loss in 6-8 weeks. additional weight loss while hospitalized. started marinol yesterday hoping this may stop her nausea and stimulate her appetite. MVI. boost BID. (5) Weight loss: see discussion above. chronic cholecystitis? Biliary tract cancer? other? EGD tomorrow if nothing major on EGD then plan for lap binta later this week pending OR availability, surgeon availability, etc (6) Depression: daughter confirms patient has had long-standing depression despite the patient denying such hopefully cymbalta will help titrate the cymbalta over time outpatient counseling -- if pt agrees to such (7) Pancreas cyst: will need surveillance of this post-d/c (8) DVT prophylaxis: lovenox daily daughter updated extensively by phone today Subjective no major changes overnight. did not eat breakfast. ongoing nausea. no vomiting overnight or this am. continues with RUQ pain and RLQ/right flank pain. patient denies depression. however, I spoke with daughter by phone and she reports her mom has indeed been depressed for several years following the of her . patient IS finally willing to undergo GI evaluation and potentially lap binta this week in light of HIDA scan results and previous biliary testing. Review of Systems Constitutional: + fatigue and + anorexia; no fever Respiratory: no cough and no dyspnea Cardiovascular: no chest pain Gastrointestinal: + abdominal pain and + nausea; no vomiting and no diarrhea/loose stools Physical Exam Constitutional: + ill appearing; no acute distress, not obese and no altered mental status ENMT: Mouth: + oral mucosal abnormality (question of thrush --- looks better than yesterday) Respiratory: normal respiratory effort, lungs clear to auscultation Cardiovascular: RRR, no murmur, no edema Heart Sounds: normal S1 and normal S2 Vessels: posterior tibial pulses present and dorsalis pedis pulses present; no JVD Extremities: no edema Gastrointestinal (Abdomen): Inspection/Auscultation: abdomen not distended Percussion/Palpation: + abdomen tender (RUQ/epigastric region; tender over T11 or T12 dermatome on right as well); no guarding, abdomen not rigid and no hepatosplenomegaly Psychiatric: Orientation: alert and oriented x 3 Mood: + depressed mood Results & Data Vital Signs (Past 12 Hours) Vital Signs Temp Pulse Resp BP Pulse Ox 02/08/19 16:19 36.7 C 94 H 16 157/88 H 97 Laboratory Results Laboratory Results - last 24 hr 02/08/19 02/08/19 07:08 07:08 WBC 7.84 RBC 4.69 Hgb 15.9 Hct 44.0 MCV 93.8 MCH 33.9 MCHC 36.1 H RDW Std Deviation 51.5 H RDW Coeff of Mikki 15.1 H Plt Count 264 MPV 10.0 Immature Gran % (Auto) 0.1 Neut % (Auto) 55.0 Lymph % (Auto) 29.5 [place] % (Auto) 13.6 Eos % (Auto) 1.4 Baso % (Auto) 0.4 Immature Gran # (Auto) 0.01 Neut # (Auto) 4.31 Lymph # (Auto) 2.31 [place] # (Auto) 1.07 H Eos # (Auto) 0.11 Baso # (Auto) 0.03 Sodium 138 Potassium 3.5 Chloride 103 Carbon Dioxide 25 Anion Gap 9.0 BUN 14 Creatinine 1.18 Est Cr Clr Drug Dosing 35.6 Est GFR ( Amer) 50.4 Est GFR (Non-Af Amer) 43.5 BUN/Creatinine Ratio 12.1 Glucose 89 Calcium 9.3 Total Bilirubin 0.6 AST 22 ALT 29 Alkaline Phosphatase 64 Total Protein 6.6 Albumin 3.2 L Globulin 3.4 Albumin/Globulin Ratio 0.9 (1) Depression Depression Type: unspecified Qualified Code(s): F32.9 - Major depressive disorder, single episode, unspecified
[2019-02-08] MEDS: AMITRIPTYLINE HCL 10 MG TAB PO SCH (21:35)
[2019-02-08] MEDS: LATANOPROST 0.005% OP SOLN 2.5 ML BTL OPB SCH (21:36)
[2019-02-09] MEDS: ACETAMINOPHEN 500 MG TAB PO SCH ×3 (01:33→17:09)
[2019-02-09] MEDS: DULOXETINE HCL 30 MG CAP PO SCH (08:28)
[2019-02-09] MEDS: PANTOprazole 40 MG TAB PO SCH (08:28)
[2019-02-09] MEDS: AMOXICILLIN/CLAVULANATE 875 MG TAB PO SCH ×2 (08:28→17:09)
[2019-02-09] MEDS: levETIRAcetam 500 MG TAB PO SCH ×2 (08:28→20:14)
[2019-02-09] MEDS: BRIMONIDINE TARTRATE OPL SCH ×3 (08:29→21:57)
[2019-02-09] MEDS: MoRPHine SULFATE 4 MG/ML 1 ML CARP\\VIAL IV PRN ×2 (08:34→22:07)
[2019-02-09] MEDS: CEROVITE ADV FORMULA TAB PO SCH (08:34)
[2019-02-09] MEDS: ONDANSETRON INJ 2 MG/ML 2 ML VIAL IV PRN (08:34)
[2019-02-09] MEDS: DICLOFENAC SOD 1% GEL 100 GM TUBE EXT SCH ×4 (08:37→20:15)
[2019-02-09] MEDS: NYSTATIN SUSP 500,000 U/5 ML UDC PO SCH ×4 (08:37→20:19)
[2019-02-09] MEDS: LIDOCAINE 5% 1 PATCH TD SCH (08:37)
--- NOTE | 2019-02-09 09:05 | Gastroenterology Progress Note ---
Date of Service February 09, 2019 Assessment & Plan (1) Abnormal gall bladder diagnostic imagin79 year old female admitted w/ post-herpetic pain, abd imaging concerning for gallstones, GB wall thickening, CBD dilation and concern for layering stone/sludge. MRCP negative for obstruction, HIDA concerning for acute cholecystitis - GI asked to evaluate to rule out additional etiology of abd pain, nausea and vomiting - NPO after midnight - EGD - LFTs normal - Lipase normal - MRCP negative - No plan for ERCP - PO PPI 40 daily - Appreciate ongoing general surgery recommendations - Please reviewed EGD report once completed. GI to sign off pending EGD. Thank you for allowing us to participate in the care of this patient. Please call with any acute changes, questions or concerns. Please see addendum below with additional recommendation from my supervising physician. Supervising Physician Co-Signing Physician Notes I have performed a history and physical examination of this patient and reviewed the electronic medical record. Specifically, on physical examination there is continued RUQ tenderness. I have discussed the case with CL Lance. The above note reflects my findings, conclusions, and recommendations. Abiel Zuleta MD Subjective Pt was seen and evaluated, chart reviewed. No acute events noted. No change in symptoms. Persistent RUQ pain. No nausea, vomiting. No CP, SOB Review of Systems Constitutional: + weight loss; no fever, no body aches and no weakness Respiratory: no cough, no dyspnea, no pain on inspiration and no wheezing Cardiovascular: no chest pain, no radiating jaw, neck or arm pain, no dyspnea on exertion and no palpitations Gastrointestinal: + abdominal pain and + nausea; no early satiety, no hematemesis, no cramping, no change in stools and no melena Physical Exam Constitutional: WD/WN, vitals as above well developed and well nourished Respiratory: normal respiratory effort, lungs clear to auscultation Cardiovascular: RRR, no murmur, no edema Gastrointestinal (Abdomen): Inspection/Auscultation: abdomen normal to inspection and normal bowel sounds; abdomen not distended Percussion/Palpation: + abdomen tender (RUQ) and abdomen soft; no guarding, abdomen not rigid, no abdominal mass and no ascites Skin: no rashes, warm and dry Results & Data Vital Signs (Past 12 Hours) Vital Signs Temp Pulse Resp BP BP Pulse Ox 02/09/19 07:29 37.0 C 106 H 16 134/80 98 02/09/19 00:20 37.1 C 82 20 161/79 H 95
--- NOTE | 2019-02-09 10:04 | Anesthesiology Consultation ---
Date of Service February 09, 2019 Assessment & Plan (1) Encounter for pre-operative examination: Chart Review Chart Review: Acceptable Risk for Surgery and Patient NOT seen in Pre Admission Testing Consults Requested none ASA ASA2 Proposed Anesthesia Anesthesia Type: MAC Risk / Benefits Reviewed With: PT / POA / Parent / Guardian, Accepts Plan and Informed Consent Obtained History Surgery Operation Date: 02/09/19 08:30 Proposed Procedures p Esophagogastroduodenoscopy Dr Dorian Zuleta MD Height/Weight Height: 5 ft 6 in Weight: 66.4 kg Allergies Allergy/AdvReac Type Severity Reaction Status Date / Time tomato Allergy Anaphylaxis Unverified 01/29/19 20:19 FRUIT Allergy Anaphylaxis Uncoded 01/29/19 20:19 Medications Home Medications Medication Instructions Recorded Confirmed Last Taken brimonidine [Alphagan P] 1 drp OPL TID 12/16/18 01/29/19 12/24/18 latanoprost 1 drp OPB PM 12/16/18 01/29/19 12/24/18 gabapentin 300 mg PO TID 01/29/19 01/29/19 Unknown oxycodone 10 mg PO UD PRN 01/29/19 01/29/19 Unknown Active Medications Generic Name Dose Route Start Last Admin Trade Name Freq PRN Reason Stop Dose Admin Acetaminophen 1,000 mg 01/30/19 10:00 02/09/19 09:47 Tylenol PO 03/01/19 09:59 Not Given Q8H TIFFANI Amitriptyline HCl 10 mg 02/08/19 21:00 02/08/19 21:35 Elavil PO 03/10/19 20:59 10 mg HS TIFFANI Administration Amoxicillin/Clavulanate Potassium 1 tab 02/03/19 17:00 02/09/19 08:28 Augmentin 875mg PO 02/13/19 16:59 1 tab BIDM TIFFANI Administration Protocol Brimonidine Tartrate 1 drops 01/30/19 09:00 02/09/19 08:29 Alphagan P Oph OPL 03/01/19 08:59 1 drops TID TIFFANI Administration Diclofenac Sodium 1 appln 01/30/19 13:00 02/09/19 08:37 Voltaren 1% Top EXT 03/01/19 12:59 Not Given QID TIFFANI Dronabinol 2.5 mg 02/07/19 17:00 02/08/19 17:04 Marinol PO 03/09/19 16:59 2.5 mg DAILY@17 TIFFANI Administration Duloxetine HCl 30 mg 02/06/19 09:00 02/09/19 08:28 Cymbalta PO 03/08/19 08:59 30 mg QAM TIFFANI Administration Enoxaparin Sodium 40 mg 02/03/19 09:00 02/08/19 10:32 Lovenox SQ 03/05/19 08:59 Not Given Q24H TIFFANI Promethazine HCl 12.5 mg/ 50.5 mls @ 202 mls/hr 02/04/19 08:51 02/07/19 19:10 Sodium Chloride IV 03/06/19 08:50 Infused Q6H PRN Infusion Nausea And Vomiting Latanoprost 1 drops 01/30/19 21:00 02/08/19 21:36 Xalatan Oph OPB 03/01/19 20:59 1 drops PM TIFFANI Administration Levetiracetam 500 mg 02/06/19 21:00 02/09/19 08:28 Keppra PO 03/08/19 20:59 500 mg BID TIFFANI Administration Lidocaine 2 patch 01/31/19 09:00 02/09/19 08:37 Lidoderm 5% TD 03/02/19 08:59 Not Given QAM [facility] Miscellaneous 1 ea 01/30/19 00:59 02/08/19 21:35 Remove Lidoderm Patch N/A 03/01/19 00:58 1 ea DAILY@2100 TIFFANI Administration Morphine Sulfate 4 mg 02/09/19 00:28 02/09/19 08:34 Morphine Sulfate IV 02/23/19 00:27 4 mg Q4H PRN Administration Pain Multivitamins/Minerals 1 tab 01/31/19 16:15 02/09/19 08:34 Multivitamin W/ Minerals Tab PO 03/02/19 16:14 Not Given QAM TIFFANI Nystatin 5 ml 02/07/19 21:00 02/09/19 08:37 Mycostatin PO 02/17/19 20:59 Not Given QID TIFFANI Ondansetron HCl 4 mg 01/30/19 00:59 02/09/19 08:34 Zofran IV 03/01/19 00:58 4 mg Q6H PRN Administration Nausea Pantoprazole Sodium 40 mg 02/08/19 09:00 02/09/19 08:28 Protonix PO 02/11/19 09:01 40 mg QAM TIFFANI Administration Tramadol HCl 100 mg 02/05/19 13:36 02/08/19 21:39 Ultram PO 03/05/19 16:14 100 mg Q6H PRN Administration Pain NPO Date Last Intake of Fluids: 02/08/19 Time Last Intake of Fluids: 23:59 Date Last Intake of Solids: 02/08/19 Time Last Intake of Solids: 16:00 Past Medical History Medical History H/O: HTN (hypertension) (Chronic) Shingles (Chronic) Exercise / Class Metabolic Activity II 4-5 Yardwork/Stairs/Walk up hill Past Family History Family History Other No pertinent family history Past Surgical History Surgical History No pertinent past surgical history Past Anesthesia History No Hx of Anesthesia Complications and No Family Hx of Anesthesia Complications History of PONV No Hx of PONV, No Family Hx of PONV and No Hx of Motion Sickness Social History Smoking Status: Never smoker Hx Alcohol Use: No Hx Substance Use: No Physical Exam Vital Signs Last Vital Signs Temp 36.8 C 02/09/19 09:35 Pulse 84 02/09/19 09:35 Resp 16 02/09/19 09:35 BP 166/98 H 02/09/19 09:35 Pulse Ox 96 02/09/19 09:35 ENMT Mouth: no dentition abnormality Thyromental Distance: > or= 3.5 Finger Breadths Mallampati Class: II Neck normal visual inspection Respiratory normal respiratory effort Auscultation: lungs clear to auscultation bilaterally Cardiovascular Rate/Rhythm: regular rate and regular rhythm Psychiatric Orientation: alert Testing Laboratory Results 02/08/19 07:08 02/08/19 07:08 PT 11.3 Seconds (9.0-12.0) 02/03/19 09:54 INR 1.1 (0.9-1.1) 02/03/19 09:54 APTT 23.2 Seconds (21.0-31.0) 02/03/19 09:54 Urine Color Dark Yellow 01/29/19 19:40 Urine Appearance Turbid (Clear) H 01/29/19 19:40 Urine pH 5.0 (4.5-7.5) 01/29/19 19:40 Ur Specific [place] 1.020 (1.000-1.030) 01/29/19 19:40 Urine Protein 1+ (Negative) H 01/29/19 19:40 Urine Glucose (UA) Negative (Negative) 01/29/19 19:40 Urine Ketones 1+ (Negative) H 01/29/19 19:40 Urine Nitrite Negative (Negative) 01/29/19 19:40 Ur Leukocyte Esterase 2+ (Negative) H 01/29/19 19:40 Urine WBC (Auto) >30 /hpf (0-5) H 01/29/19 19:40 Urine RBC (Auto) 5-10 /hpf (0-4) H 01/29/19 19:40 U Hyaline Cast (Auto) 1-5 /lpf (0-5) 01/29/19 19:40 U Epithel Cells (Auto) >30 /lpf (0-5) H 01/29/19 19:40 Urine Bacteria (Auto) Negative (Negative) 01/29/19 19:40 02/01/19 08:29 Blood Culture - Final Blood No growth 02/01/19 08:33 Blood Culture - Final Blood No growth 01/29/19 19:40 Urine Culture - Final Urine,Clean Catch Lactobacillus species
[2019-02-09] MEDS ORDERED: PROPOFOL IV EMULSION 10 MG/ML 20 ML VIAL IV ONE (10:34)
[2019-02-09] MEDS ORDERED: LIDOCAINE HCL 2% 2 ML VIAL/AMP(20MG/ML) INFIL ONE (10:34)
--- NOTE | 2019-02-09 11:01 | GI REPORT ---
Patient Name: Susy Marie Procedure Date: 02/09/2019 10:26 AM Date of : 1940 Admit Type: Inpatient Age: 79 Gender: Female Attending MD: Abiel Zuleta MD Procedure: Upper GI endoscopy Providers: Abiel Zuleta MD Referring MD: Manuel Paige Indications: Abdominal pain in the right upper quadrant Medicines: Monitored Anesthesia Care Complications: No immediate complications. Estimated blood loss: None. Estimated Blood Loss: Estimated blood loss: none. Procedure: Pre-Anesthesia Assessment: - Prior to the procedure, a History and Physical was performed, and patient medications, allergies and sensitivities were reviewed. The patient's tolerance of previous anesthesia was reviewed. - ASA Grade Assessment: II - A patient with mild systemic disease. After obtaining informed consent, the endoscope was passed under direct vision. Throughout the procedure, the patient's blood pressure, pulse, and oxygen saturations were monitored continuously. The Endoscope was introduced through the mouth, and advanced to the third part of duodenum. The upper GI endoscopy was accomplished with ease. The patient tolerated the procedure well. Findings: The examined esophagus was normal. The Z-line was regular. Patchy mildly erythematous mucosa without bleeding was found in the gastric antrum. Biopsies were taken with a cold forceps for Helicobacter pylori testing. The examined duodenum was normal. Impression: - Normal esophagus. - Z-line regular. - Erythematous mucosa in the antrum. Biopsied. - Normal examined duodenum. Recommendation: - Await pathology results. - Return patient to hospital [facility] for ongoing care. Abiel Zuleta M.D. Abiel Zuleta MD 02/09/2019 11:01:01 AM This report has been signed electronically. Note Initiated On: 02/09/2019 10:26 AM Number of Addenda: 0 I attest to the content of the Intraoperative Record and orders documented therein, exceptions below {[id number]}
--- NOTE | 2019-02-09 11:58 | Anesthesiology Progress Note ---
Date of Service February 09, 2019 Anesthesia Post Procedure Vital Signs Vital Signs: Temp Pulse Resp BP BP Pulse Ox 02/09/19 11:07 72 18 162/79 H 97 02/09/19 10:52 74 18 149/78 H 96 02/09/19 10:37 36.8 C 73 16 112/69 100 02/09/19 09:35 36.8 C 84 16 166/98 H 96 02/09/19 07:29 37.0 C 106 H 16 134/80 98 02/09/19 00:20 37.1 C 82 20 161/79 H 95 02/08/19 16:19 36.7 C 94 H 16 157/88 H 97 Pain Intensity Right Flank: Pain Intensity: 9 Bilateral Flank: Pain Intensity: 7 Abdomen: Pain Intensity: 8 Transfer of Care Handoff Completed per policy Notes Mental Status: alert / awake / arousable Patient Amnestic to Procedure: Yes Nausea / Vomiting: adequately controlled Pain: adequately controlled Airway Patency, RR, SpO2: stable & adequate BP & HR: stable & adequate Hydration State: stable & adequate Anesthetic Complications: no major complications apparent
[2019-02-09] MEDS: DRONABINOL 2.5 MG CAP PO SCH (17:08)
[2019-02-09] MEDS: TRAMADOL HCL 50 MG TABLET PO PRN (17:08)
[2019-02-09] MEDS: LATANOPROST 0.005% OP SOLN 2.5 ML BTL OPB SCH (20:12)
[2019-02-09] MEDS: AMITRIPTYLINE HCL 10 MG TAB PO SCH (20:13)
[2019-02-09] MEDS ORDERED: Nursing to Pharmacy Communication ONE (20:52)
--- NOTE | 2019-02-09 21:18 | Hospitalist Progress Note ---
Date of Service February 09, 2019 Assessment & Plan (1) Abnormal gall bladder diagnostic imaging: CT at time of admission showed a distended gall bladder. RUQ u/s highly concerning for acute cholecystitis and choledocholithiasis. MRCP did not support RUQ u/s findings however. GI and gen surg saw patient - she refused MRCP and refused elective lap binta last week. She has lost 9-10 pounds of weight since admission however. She has continued with upper abd pain, nausea, etc. She has been unable to eat to maintain her nutrition. HIDA scan yesterday with chronic cholecystitis. cont augmentin BID x 54 more days to cover the gall bladder and ? acute cholecystitis Patient indeed underwent EGD today - only showed mild gastritis - continue PPI. 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 Initial outbreak of rash was first week of December. has tolerated cymbalta including titration to 30mg/day. did NOT tolerate lyrica or gabapentin in the past. continues w/ lidoderm patches. keppra started by pain management -- titrated to 500mg BID this past weekend w/o adverse side effects. will only be candidate for nerve block once gall bladder issue is resolved. also continue elavil 10mg daily. (3) Acute UTI: 2nd to lactobacillus. resolved. (4) Severe protein-calorie malnutrition: 20+ pounds of weight loss in 6-8 weeks. additional weight loss while hospitalized. started marinol and tolerating this. seems to be helping nausea. (5) Weight loss: see discussion above. chronic cholecystitis? Biliary tract cancer? other? EGD without significant pathology to OR tomorrow for lap binta (6) Depression: daughter confirms patient has had long-standing depression despite the patient denying such hopefully cymbalta will help titrate the cymbalta over time outpatient counseling -- if pt agrees to such (7) Pancreas cyst: will need surveillance of this post-d/c (8) DVT prophylaxis: lovenox daily but held today due to EGD and hold in AM tomorrow due to lap binta resume post-op daughter updated extensively by phone yesterday Subjective EGD done this am - mild gastritis seen only. she has had no further vomiting. nausea improved. "shingles" pain has been problematic today. still having upper abdominal pain but doesn't seem as severe. tolerating diet but eating little. is still willing to proceed forward with ed judd. Review of Systems Constitutional: + anorexia; no fever and no chills Respiratory: no cough and no dyspnea Cardiovascular: no chest pain Physical Exam Constitutional: no acute distress, not obese and no altered mental status ENMT: external ear and nose normal, oropharynx normal Respiratory: normal respiratory effort, lungs clear to auscultation Cardiovascular: RRR, no murmur, no edema Rate/Rhythm: regular rate and regular rhythm Heart Sounds: normal S1 and normal S2 Vessels: posterior t ibial pulses present and dorsalis pedis pulses present; no JVD Extremities: no edema Gastrointestinal (Abdomen): Inspection/Auscultation: abdomen not distended Percussion/Palpation: + abdomen tender (RUQ/epigastric region - not as severe as yesterday); no guarding, abdomen not rigid and no hepatosplenomegaly Psychiatric: Orientation: alert and oriented x 3 Mood: + depressed mood Results & Data Vital Signs (Past 12 Hours) Vital Signs Temp Pulse Resp BP Pulse Ox 02/09/19 15:40 37.0 C 85 21 142/79 H 97 02/09/19 11:07 72 18 162/79 H 97 02/09/19 10:52 74 18 149/78 H 96 02/09/19 10:37 36.8 C 73 16 112/69 100 02/09/19 09:35 36.8 C 84 16 166/98 H 96 (1) Depression Depression Type: unspecified Qualified Code(s): F32.9 - Major depressive disorder, single episode, unspecified
[2019-02-09] MEDS ORDERED: LIDOCAINE 5% 1 PATCH TD SCH (22:00)
[2019-02-10] MEDS: ACETAMINOPHEN 500 MG TAB PO SCH ×2 (02:42→11:21)
--- NOTE | 2019-02-10 06:44 | Surgery Progress Note ---
Date of Service February 10, 2019 Assessment & Plan (1) Abnormal gall bladder diagnostic [age]-year-old female who presented to the ED with persistent and increasing abdominal pain with history of shingles in December and postherpetic neuralgia on pain medication. She also had a history of persistent nausea with a 20 pound weight loss in last [address] scan of the abdomen and pelvis in the emergency room showed gallbladder distention however no other findings. Upon further workup of her chronic nausea and 20 pound weight loss she had a gallbladder ultrasound which showed distended gallbladder with mild thickening of the gallbladder wall and a positive Hackett sign on examination. She also had dilated common bile duct at 1.2 cm with suggestion of trace sludge and stones in the common bile duct. Her labs on presentation included no leukocytosis and total bilirubin along with LFTs and lipase were completely within normal limits. Upon questioning she again reports dysphagia. MRCP was negative for filling defects, and showed "suspected" trace sludge in the gallbladder. Plan: - Trial with course of antibiotic treatment for possible cholecystitis, can transition to oral; f/u with gen surg as an outpatient in 2-4 weeks - Okay for regular diet from surgical standpoint - Would recommend EGD for further workup of her dysphasia. 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 Please do not hesitate to contact us with any questions or concerns 02/10/2019 6:46AM I ( Holly Lagunas MD) recommend to do laparoscopic cholecystectomy, possible open or cholangiogram, D/W benefits, risks and alternatives of the surgery, the risks - infection, bleeding, injury CBD, bowel, WI, DVT, stroke, , pt understood, she agrees with surgery done by me, I answered all questions, Subjective Dr. Mixon called me, he asked me to do this pt's gallbladder surgery, I reviewed pt's H/P with pt at bedside, pt is still have some RUQ pain, with some nausea, no vomiting, pt denies fever, no chest pain or SOB, EGD done this am - mild gastritis seen only. she has had no further vomiting. nausea improved. "shingles" pain has been problematic today. still having upper abdominal pain but doesn't seem as severe. tolerating diet but eating little. is still willing to proceed forward with ed judd. Review of Systems Review of Systems: All systems reviewed & are unremarkable except as noted in HPI & below Respiratory: as per Subjective / HPI Cardiovascular: as per Subjective / HPI Gastrointestinal: as per Subjective / HPI Genitourinary: as per Subjective / HPI Neurologic: as per Subjective / HPI Psychiatric: as per Subjective / HPI Endocrine: as per Subjective / HPI Hematologic / Lymphatic: as per Subjective / HPI Physical Exam Constitutional: WD/WN, vitals as above well developed and well nourished Neck: trachea midline, no thyromegaly Respiratory: normal respiratory effort, lungs clear to auscultation normal respiratory effort Cardiovascular: RRR, no murmur, no edema Rate/Rhythm: regular rate and regular rhythm Heart Sounds: normal S1 and normal S2 Gastrointestinal (Abdomen): soft, no distend, some tenderness at RUQ, no rebound pain, one drug patch at RUQ area, Neurologic: patellar DTR's 2+ bilat, sensation intact Psychiatric: A+Ox3, euthymic affect Orientation: oriented x 3 Results & Data Vital Signs (Past 12 Hours) Vital Signs Temp Pulse Resp BP Pulse Ox 02/09/19 23:09 37.1 C 82 20 121/68 99 Laboratory Results Abnormal Labs 01/29/19 01/29/19 01/29/19 19:25 19:25 19:40 RBC MCHC RDW Std Deviation 52.2 H RDW Coeff of Mikki 14.9 H Immature Gran # (Auto) 0.03 H Lymph # (Auto) [place] # (Auto) 1.01 H Sodium 135 L Chloride Creatinine 1.49 H BUN/Creatinine Ratio 9.5 L Glucose 119 H Calcium Total Protein Albumin Urine Appearance Turbid H Urine Protein 1+ H Urine Ketones 1+ H Urine Blood 2+ H Urine Bilirubin 1+ H Ur Leukocyte Esterase 2+ H Urine WBC (Auto) >30 H Urine RBC (Auto) 5-10 H U Epithel Cells (Auto) >30 H 01/31/19 02/01/19 02/01/19 05:57 07:24 07:24 RBC MCHC RDW Std Deviation RDW Coeff of Mikki Immature Gran # (Auto) Lymph # (Auto) [place] # (Auto) Sodium Chloride Creatinine 1.26 H 1.21 H BUN/Creatinine Ratio 8.8 L Glucose 102 H Calcium Total Protein Albumin 3.3 L Urine Appearance Urine Protein Urine Ketones Urine Blood Urine Bilirubin Ur Leukocyte Esterase Urine WBC (Auto) Urine RBC (Auto) U Epithel Cells (Auto) 02/02/19 02/02/19 02/02/19 07:00 07:00 07:00 RBC 4.02 L MCHC RDW Std Deviation 53.7 H RDW Coeff of Mikki 15.2 H Immature Gran # (Auto) Lymph # (Auto) [place] # (Auto) Sodium Chloride 110 H Creatinine BUN/Creatinine Ratio Glucose 107 H Calcium 8.3 L Total Protein 5.7 L Albumin 2.8 L Urine Appearance Urine Protein Urine Ketones Urine Blood Urine Bilirubin Ur Leukocyte Esterase Urine WBC (Auto) Urine RBC (Auto) U Epithel Cells (Auto) 02/04/19 02/04/19 02/08/19 09:20 09:20 07:08 RBC MCHC 36.1 H RDW Std Deviation 52.8 H 51.5 H RDW Coeff of Mikki 15.0 H 15.1 H Immature Gran # (Auto) Lymph # (Auto) 1.07 L [place] # (Auto) 1.07 H Sodium Chloride 108 H Creatinine BUN/Creatinine Ratio 6.9 L Glucose 132 H Calcium Total Protein Albumin 3.1 L Urine Appearance Urine Protein Urine Ketones Urine Blood Urine Bilirubin Ur Leukocyte Esterase Urine WBC (Auto) Urine RBC (Auto) U Epithel Cells (Auto) 02/08/19 07:08 RBC MCHC RDW Std Deviation RDW Coeff of Mikki Immature Gran # (Auto) Lymph # (Auto) [place] # (Auto) Sodium Chloride Creatinine BUN/Creatinine Ratio Glucose Calcium Total Protein Albumin 3.2 L Urine Appearance Urine Protein Urine Ketones Urine Blood Urine Bilirubin Ur Leukocyte Esterase Urine WBC (Auto) Urine RBC (Auto) U Epithel Cells (Auto) Diagnostic Findings [place], [place] [phone] Nuclear Medicine Report Patient: CARLOS FREIRE UAdmit Date: 01/31/19 MR#: [id number]: [id number] Acct ID:[id number]: Date: [address] Zip: [place] [id number] Age: 79Location: 4E Sex: F Room/Bed: [facility] Att Phy: Manuel Paige MDDiagnosis: INTRACTABLE POSTHERPETIC NEURALGIA [place] Phy: Anant Schwab, KARLervice Date: 02/08/19 Fam Phy: Abiel Jalloh MDInterpreting Phy: Leo Trevino MD Admit Phy: Wilver Hebert M.D. Ordering Phy: Manuel Paige MD MR MRCP CLINICAL HISTORY: gallstones, CBD dilation, normal LFTs gallbladder distention. Possible acute cholecystitis. Possible common bile duct calculi. COMPARISON STUDY: Ultrasound dated 01/29/2019, CT scan dated 01/29/2019 FINDINGS: A breath-hold MRCP was performed. MIP images were acquired. There is hepatic steatosis. There is mild gallbladder distention. No gallbladder calculi are visualized. There is trace sludge in the gallbladder. Several cystic pancreatic lesions are visualized, the largest of which measures 11 mm and is located within the pancreatic tail. There is also a 1 cm lesion within the pancreatic neck. 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 There are no filling defects to indicate calculi. There is no pancreatic ductal dilatation. IMPRESSION: 1. Suspected trace sludge in the gallbladder 2. Minor dilatation of the common bile duct which measures 8 mm. No common bile duct filling defects identified. 3. Mild gallbladder distention 4. 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 Hepatic steatosis NUCLEAR HEPATOBILIARY SCAN CLINICAL HISTORY: Acute cholecystitis. COMPARISON STUDY: Abdominal CT dated 01/29/2019. Abdominal ultrasound dated 01/31/2019. TECHNIQUE: Dynamic images of the liver and anterior abdomen were obtained every 5 minutes for a total of 60 minutes following the IV administration of 5.4mCi of technetium 99m Choletec. The gallbladder was not visualized by 60 minutes. 2 mg of IV morphine was then administered with additional imaging performed every 5 minutes for an additional 25 minutes. FINDINGS: The hepatobiliary scan shows prompt and homogeneous hepatic uptake. There is visualized activity within the intra and extrahepatic biliary tree at 10 minutes. There is normal biliary to bowel transit, with small bowel visualized by 40 minutes. The gallbladder was not visualized by 60 minutes. There was visualization of the gallbladder at 70 minutes following morphine administration. IMPRESSION: 1. Nonvisualization of the gallbladder at 60 minutes. 2. The gallbladder was visualized following morphine administration at 70 minutes. These findings indicate gallbladder dysfunction and possible chronic cholecystitis. There is no evidence of cystic duct obstruction. ABDOMINAL ULTRASOUND, RIGHT UPPER QUADRANT HISTORY: weight loss, nausea, gall bladder distension on CT. COMPARISON: Abdomen and pelvis CT 01/29/2019. FINDINGS: Pancreas: The pancreas demonstrates a normal echotexture. Liver: Unremarkable. Gallbladder: The gallbladder is distended and filled with sludge. Mild gallbladder wall thickening measuring 3 mm. The technologist reported a positive sonographic Hackett's sign. CBD: Distended measuring 1.2 cm. Small amount of sludge/stones layering within the common bile duct. Right kidney: No hydronephrosis. IMPRESSION: The gallbladder and common bile duct are distended. There is mild gallbladder wall thickening with a positive sonographic Hackett's sign. Trace sludge/stones are within the common bile duct. Therefore, these findings are concerning for acute cholecystitis. Clinical correlation recommended.
[2019-02-10 06:48] LABS: INR 1.1 (0.9-1.1); Prothrombin Time 10.9 Seconds (9.0-12.0)
[2019-02-10 07:05] LABS: Calcium 8.9 mg/dl (8.5-10.1); Creatinine Clr Calc Pharmacy 38.2 ml/min; Est GFR (African American) 54.9; Est GFR (Non-African American) 47.4; Potassium 3.8 mmol/L (3.5-5.1)
[2019-02-10] MEDS: NYSTATIN SUSP 500,000 U/5 ML UDC PO SCH ×5 (07:34→20:51)
[2019-02-10] MEDS: LACTATED RINGER'S 1,000 ML IV SCH ×2 (07:34→23:19)
--- NOTE | 2019-02-10 08:19 | Anesthesiology Consultation ---
Date of Service February 10, 2019 Assessment & Plan Chart Review Chart Review: Acceptable Risk for Surgery and Patient NOT seen in Pre Admission Testing Consults Requested none ASA ASA2 Proposed Anesthesia Anesthesia Type: General Risk / Benefits Reviewed With: PT / POA / Parent / Guardian, Accepts Plan and Informed Consent Obtained History Surgery Operation Date: 02/09/19 08:30 Proposed Procedures p Esophagogastroduodenoscopy Dr Alarcon - Abiel Zuleta MD Operation Date: 02/10/19 13:00 Proposed Procedures p Laparoscopic Cholecystectomy - Holly Lagunas MD Height/Weight Height: 1.68 m Weight: 66.4 kg Allergies Allergy/AdvReac Type Severity Reaction Status Date / Time tomato Allergy Anaphylaxis Verified 02/10/19 12:46 FRUIT Allergy Anaphylaxis Uncoded 01/29/19 20:19 Medications Home Medications Medication Instructions Recorded Confirmed Last Taken brimonidine [Alphagan P] 1 drp OPL TID 12/16/18 01/29/19 12/24/18 latanoprost 1 drp OPB PM 12/16/18 01/29/19 12/24/18 gabapentin 300 mg PO TID 01/29/19 01/29/19 Unknown oxycodone 10 mg PO UD PRN 01/29/19 01/29/19 Unknown Active Medications Generic Name Dose Route Start Last Admin Trade Name Freq PRN Reason Stop Dose Admin Acetaminophen 1,000 mg 01/30/19 10:00 02/10/19 11:21 Tylenol PO 03/01/19 09:59 Not Given Q8H TIFFANI Amitriptyline HCl 10 mg 02/08/19 21:00 02/09/19 20:13 Elavil PO 03/10/19 20:59 10 mg HS TIFFANI Administration Amoxicillin/Clavulanate Potassium 1 tab 02/03/19 17:00 02/09/19 17:09 Augmentin 875mg PO 02/13/19 16:59 1 tab BIDM TIFFANI Administration Protocol Brimonidine Tartrate 1 drops 01/30/19 09:00 02/10/19 08:35 Alphagan P Oph OPL 03/01/19 08:59 1 drops TID TIFFANI Administration Diclofenac Sodium 1 appln 01/30/19 13:00 02/10/19 08:36 Voltaren 1% Top EXT 03/01/19 12:59 1 appln QID TIFFANI Administration Dronabinol 2.5 mg 02/07/19 17:00 02/09/19 17:08 Marinol PO 03/09/19 16:59 2.5 mg DAILY@17 TIFFANI Administration Duloxetine HCl 30 mg 02/06/19 09:00 02/09/19 08:28 Cymbalta PO 03/08/19 08:59 30 mg QAM TIFFANI Administration Enoxaparin Sodium 40 mg 02/03/19 09:00 02/08/19 10:32 Lovenox SQ 03/05/19 08:59 Not Given Q24H TIFFANI Promethazine HCl 12.5 mg/ 50.5 mls @ 202 mls/hr 02/04/19 08:51 02/07/19 19:10 Sodium Chloride IV 03/06/19 08:50 Infused Q6H PRN Infusion Nausea And Vomiting Lactated Ringer's 1,000 mls @ 80 mls/hr 02/10/19 06:45 02/10/19 07:34 Lr IV 03/12/19 06:44 80 mls/hr .[id number] TIFFANI Administration Latanoprost 1 drops 01/30/19 21:00 02/09/19 20:12 Xalatan Oph OPB 03/01/19 20:59 1 drops PM TIFFANI Administration Levetiracetam 500 mg 02/06/19 21:00 02/09/19 20:14 Keppra PO 03/08/19 20:59 500 mg BID TIFFANI Administration Lidocaine 2 patch 02/09/19 22:00 02/09/19 21:55 Lidoderm 5% TD 03/02/19 08:59 2 patch DAILY@2200 TIFFANI Administration Miscellaneous 1 ea 02/10/19 10:00 02/10/19 08:39 Remove Lidoderm Patch N/A 03/01/19 00:58 1 ea DAILY@1000 TIFFANI Administration Morphine Sulfate 4 mg 02/09/19 00:28 02/10/19 11:33 Morphine Sulfate IV 02/23/19 00:27 4 mg Q4H PRN Administration Pain Multivitamins/Minerals 1 tab 01/31/19 16:15 02/09/19 08:34 Multivitamin W/ Minerals Tab PO 03/02/19 16:14 Not Given QAM TIFFANI Nystatin 5 ml 02/07/19 21:00 02/10/19 07:34 Mycostatin PO 02/17/19 20:59 Not Given QID TIFFANI Ondansetron HCl 4 mg 01/30/19 00:59 02/09/19 08:34 Zofran IV 03/01/19 00:58 4 mg Q6H PRN Administration Nausea Pantoprazole Sodium 40 mg 02/08/19 09:00 02/09/19 08:28 Protonix PO 02/11/19 09:01 40 mg QAM TIFFANI Administration Tramadol HCl 100 mg 02/05/19 13:36 02/09/19 17:08 Ultram PO 03/05/19 16:14 100 mg Q6H PRN Administration Pain NPO Date Last Intake of Fluids: 02/08/19 Time Last Intake of Fluids: 23:59 Date Last Intake of Solids: 02/08/19 Time Last Intake of Solids: 16:00 Past Medical History Medical History H/O: HTN (hypertension) (Chronic) Shingles (Chronic) H/O tooth extraction Shingles since December. Now with nerve pain around the right abdominal area through the right flank Was taken off HTN medication about 3 months ago by her PCP Exercise / Class Metabolic Activity II 4-5 Yardwork/Stairs/Walk up hill Past Family History Family History Other No pertinent family history Past Surgical History Surgical History H/O esophagogastroduodenoscopy Status post glaucoma surgery No pertinent past surgical history Past Anesthesia History No Hx of Anesthesia Complications and No Family Hx of Anesthesia Complications History of PONV No Hx of PONV and No Hx of Motion Sickness Social History Smoking Status: Never smoker Do You Dip or Chew Tobacco: No Hx Alcohol Use: No Hx Substance Use: No Physical Exam Vital Signs Last Vital Signs Temp 37.1 C 02/10/19 12:43 Pulse 85 02/10/19 12:43 Resp 18 02/10/19 12:43 BP 167/73 H 02/10/19 12:43 Pulse Ox 100 02/10/19 12:43 ENMT Mouth: no TMJ abnormality and no TMJ clicking Thyromental Distance: > or= 3.5 Finger Breadths Mallampati Class: II Neck normal visual inspection; neck extension not limited Respiratory Auscultation: lungs clear to auscultation bilaterally Cardiovascular Rate/Rhythm: regular rate and regular rhythm Psychiatric Orientation: alert and oriented x 3 Testing Electrocardiogram Date: 01/29/19 Chest X-Ray Date: 01/10/19 Findings: + NAD Resolution of prior right middle lobe platelike atelectasis Laboratory Results 02/08/19 07:08 02/10/19 06:01 PT 10.9 Seconds (9.0-12.0) 02/10/19 06:01 INR 1.1 (0.9-1.1) 02/10/19 06:01 APTT 23.2 Seconds (21.0-31.0) 02/03/19 09:54 Urine Color Dark Yellow 01/29/19 19:40 Urine Appearance Turbid (Clear) H 01/29/19 19:40 Urine pH 5.0 (4.5-7.5) 01/29/19 19:40 Ur Specific [place] 1.020 (1.000-1.030) 01/29/19 19:40 Urine Protein 1+ (Negative) H 01/29/19 19:40 Urine Glucose (UA) Negative (Negative) 01/29/19 19:40 Urine Ketones 1+ (Negative) H 01/29/19 19:40 Urine Nitrite Negative (Negative) 01/29/19 19:40 Ur Leukocyte Esterase 2+ (Negative) H 01/29/19 19:40 Urine WBC (Auto) >30 /hpf (0-5) H 01/29/19 19:40 Urine RBC (Auto) 5-10 /hpf (0-4) H 01/29/19 19:40 U Hyaline Cast (Auto) 1-5 /lpf (0-5) 01/29/19 19:40 U Epithel Cells (Auto) >30 /lpf (0-5) H 01/29/19 19:40 Urine Bacteria (Auto) Negative (Negative) 01/29/19 19:40 02/01/19 08:29 Blood Culture - Final Blood No growth 02/01/19 08:33 Blood Culture - Final Blood No growth 01/29/19 19:40 Urine Culture - Final Urine,Clean Catch Lactobacillus species
[2019-02-10] MEDS: BRIMONIDINE TARTRATE OPL SCH ×3 (08:35→20:50)
[2019-02-10] MEDS: DICLOFENAC SOD 1% GEL 100 GM TUBE EXT SCH ×4 (08:36→20:51)
[2019-02-10] MEDS: MoRPHine SULFATE 4 MG/ML 1 ML CARP\\VIAL IV PRN ×2 (11:33→20:53)
[2019-02-10] MEDS ORDERED: BACITRACIN OINT 15 GM TUBE ONE (12:38)
[2019-02-10] MEDS ORDERED: fentaNYL citrate 100 MCG/2 ML VIAL ONE ×3 (12:38→13:52)
[2019-02-10] MEDS ORDERED: LIDOCAINE HCL 1% 20 ML VIAL ONE (12:38)
[2019-02-10] MEDS ORDERED: BUPIVACAINE 0.5 % 5 MG/1 ML MPF 30ML VIAL ONE (12:38)
--- NOTE | 2019-02-10 12:59 | History & Physical Bridge Note ---
Date of Service February 10, 2019 History & Physical Bridge Note I have examined the patient, reviewed the History & Physical and in the interval since the performance of the History & Physical I have noted the following changes of clinical significance: no changes noted Supervising Physician Co-Signing Physician Notes I have performed a history and physical examination of this patient and reviewed the electronic medical record. Specifically, on physical examination there is continued RUQ tenderness. I have discussed the case with CL Lance. The above note reflects my findings, conclusions, and recommendations. Abiel Zuleta MD
[2019-02-10] MEDS ORDERED: CEFAZOLIN 2000MG 2,000 MG/15 ML SYR IV SCH (13:00)
[2019-02-10] MEDS ORDERED: CEFAZOLIN 2000MG 2,000 MG/15 ML SYR IV ONE (13:01)
[2019-02-10] MEDS: levETIRAcetam 500 MG TAB PO SCH ×2 (13:13→20:50)
[2019-02-10] MEDS: CEROVITE ADV FORMULA TAB PO SCH (13:13)
[2019-02-10] MEDS: DULOXETINE HCL 30 MG CAP PO SCH (13:13)
[2019-02-10] MEDS ORDERED: CONRAY 60% 50 ML VIAL ONE (13:13)
[2019-02-10] MEDS: AMOXICILLIN/CLAVULANATE 875 MG TAB PO SCH ×2 (13:13→17:36)
[2019-02-10] MEDS: PANTOprazole 40 MG TAB PO SCH (13:13)
[2019-02-10] MEDS ORDERED: LIDOCAINE HCL 2% 2 ML VIAL/AMP(20MG/ML) INFIL ONE (13:28)
[2019-02-10] MEDS ORDERED: DEXAMETHASONE SOD INJ 4 MG/ML VIAL ONE (13:28)
[2019-02-10] MEDS ORDERED: NEOSTIGMINE METHYLSULFATE 5 MG/5 ML SYR ONE (13:28)
[2019-02-10] MEDS ORDERED: GLYCOPYRROLATE 0.2 MG/ML VIAL ONE (13:28)
[2019-02-10] MEDS ORDERED: PROPOFOL IV EMULSION 10 MG/ML 20 ML VIAL IV ONE ×2 (13:28→13:37)
[2019-02-10] MEDS ORDERED: ROCURONIUM BROMIDE 10 MG/ML 5 ML VIAL ONE (13:28)
[2019-02-10] MEDS ORDERED: ONDANSETRON INJ 2 MG/ML 2 ML VIAL ONE (13:28)
[2019-02-10] MEDS ORDERED: KETAMINE HCL INJ 50 MG/ML 10 ML VIAL ONE (13:34)
[2019-02-10] MEDS ORDERED: HYDROmorphone INJ 2 MG/ML SYR/VIAL ONE (13:34)
[2019-02-10] MEDS ORDERED: ESMOLOL HCL INJ 10 MG/ML 10ML VIAL IV ONE (13:36)
[2019-02-10] MEDS ORDERED: HYDROmorphone INJ 1 MG/ML SYRINGE IV PRN (13:47)
[2019-02-10] MEDS ORDERED: ONDANSETRON INJ 2 MG/ML 2 ML VIAL IV PRN (13:47)
[2019-02-10] MEDS ORDERED: PHENYLEPHRINE 100MCG/ML 5ML SYR IV PRN (13:47)
[2019-02-10] MEDS ORDERED: ATROPINE SULFATE 0.1 MG/ML 10ML SYR IV PRN (13:47)
[2019-02-10] MEDS ORDERED: fentaNYL citrate 100 MCG/2 ML VIAL IV PRN (13:47)
--- NOTE | 2019-02-10 14:16 | Fluoroscopy Report ---
[place] cholangiogram OR HISTORY: 79 years-old Female CHOLANGIOGRAM intraoperative cholangiogram COMPARISON: Acute abdominal series radiographs 02/04/2019 TECHNIQUE: Single spot fluoroscopic image of the abdominal right upper quadrant was obtained utilizin g 0.9 seconds fluoroscopy time FINDINGS: Single image demonstrates opacification of the gallbladder, common bile duct and partially imaged samir iary tree. No contrast extravasation identified. No filling defects within the common bile duct to miller ggest choledocholithiasis. IMPRESSION: Fluoroscopic assistance as above. Please see operative report for further details. The above report was generated using voice recognition software. It may contain grammatical, syntax o r spelling errors. Electronically signed by: Jluis Dias M.D. 02/10/2019 2:15 PM
--- NOTE | 2019-02-10 14:26 | Post Operative Brief Note ---
Immediate Post Op Note v1 Date of Surgery February 10, 2019 Pre & Post Diagnosis Operation Date: 02/09/19 08:30 Pre-Op Diagnosis: RUQ PAIN Post-Op Diagnosis: GASTRIC ERYTHEMA Operation Date: 02/10/19 13:00 Pre-Op Diagnosis: Acute Cholecystitis Post-Op Diagnosis: Acute Cholecystitis Procedure Operation Date: 02/09/19 08:30 Actual Procedures p EGD Biopsy Cytology - Abiel Zuleta MD Operation Date: 02/10/19 13:00 Actual Procedures p Laparoscopic Cholecystectomy with Cholangiogram - Holly Lagunas MD Surgeon Holly Lagunas MD Store Coordinator electronic equipment maint tech Estimated Blood Loss 10 Findings Consistent with Post-Op Diagnosis acute cholecystitis, patent on CBD, Fluids 500ml Specimens gallbladder Anesthesia Type General Complications none Disposition Accompanied Patient To Recovery: Yes Disposition: Recovery Room Overlapping Procedure I was immediately available: during the entire case.
[2019-02-10] MEDS ORDERED: LABETALOL HCL IV 5 MG/ML 20ML IV ONE (15:08)
[2019-02-10] MEDS ORDERED: LABETALOL HCL IV 5 MG/ML 20ML IV STA (15:09)
--- NOTE | 2019-02-10 15:20 | Anesthesiology Progress Note ---
Date of Service February 10, 2019 Anesthesia Post Procedure Vital Signs Vital Signs: Temp Pulse Pulse Resp BP Pulse Ox 02/10/19 15:15 69 19 167/67 H 100 02/10/19 15:05 72 23 172/100 H 100 02/10/19 14:55 74 22 177/81 H 100 02/10/19 14:49 36.5 C 87 12 180/79 H 100 02/10/19 12:43 37.1 C 85 18 167/73 H 100 02/10/19 07:00 36.7 C 77 18 146/79 H 95 02/09/19 23:09 37.1 C 82 20 121/68 99 02/09/19 15:40 37.0 C 85 21 142/79 H 97 Pain Intensity Right Flank: Pain Intensity: 2 Bilateral Flank: Pain Intensity: 2 Abdomen: Pain Intensity: 0 Transfer of Care Handoff Completed per policy Notes Mental Status: alert / awake / arousable Patient Amnestic to Procedure: Yes Nausea / Vomiting: adequately controlled Pain: adequately controlled Airway Patency, RR, SpO2: stable & adequate BP & HR: stable & adequate Hydration State: stable & adequate Anesthetic Complications: no major complications apparent and Pt Satisfied with anesthetic care Notes: The patient is awake and stable.
--- NOTE | 2019-02-10 16:57 | Operative Report ---
DATE OF OPERATION: 02/10/2019 PREOPERATIVE DIAGNOSIS: Acute cholecystitis. POSTOPERATIVE DIAGNOSIS: Acute cholecystitis. OPERATIVE PROCEDURE: Laparoscopic cholecystectomy, intraoperative cholangiogram. SURGEON: Holly Lagunas MD. ANESTHESIA: General. ESTIMATED BLOOD LOSS: About 10 mL. FINDINGS: Acute cholecystitis. Intraoperative cholangiogram showed patent common bile duct. COMPLICATIONS: None. INDICATIONS FOR THE PROCEDURE: This is an 79-year-old female who was admitted to the hospital for right upper quadrant pain. The patient has a HIDA scan diagnosis of acute cholecystitis. The patient was required to do laparoscopic cholecystectomy, possible open, possible cholangiogram. I did talk to the patient about the benefits, risks, alternate procedure. I indicated the risks may include but not limited to such as bleeding, infection, injury to common bile duct, injury to bowel, may need ERCP, myocardial infarction, DVT, stroke, even . The patient understands. She signed informed consent and I answered all questions. DETAILS OF PROCEDURE: We brought the patient to the OR, put the patient in the supine position. The patient received SCD on bilateral legs to prevent DVT. Also, patient received 2 g Ancef IV for prophylactic antibiotic. The patient received general anesthesia without difficulty. The abdomen was prepped and draped in routine sterile fashion. After the patient was identified and timeout, I injected local anesthesia by using 1% lidocaine mixed with 0.5% Marcaine just above the umbilicus, then I made a small incision just above the umbilicus, opened fascia and opened peritoneum under direct vision, put a Madi trocar in, connected to CO2 to create pneumoperitoneum at a flow rate of 6 liters per minute, pressure not more than 14 mmHg. Once we got a nice pneumoperitoneum, we put the camera in, looked around the abdomen showing normal finding on the liver. However, the gallbladder showed significant gallbladder wall thickening, edema, confirmed diagnosis of acute cholecystitis. Then, we put another three 5 mm trocar on the right upper quadrant. Once all trocars in, we put a grasper to hold the base of the gallbladder, put in the direction to the diaphragm then we did cholangirogram first, injection contrast dye into bladder, and take CXR picture which showed patent CBD, and put another grasper to hold the pouch of the gallbladder, put the latter to expose the triangle of Calot. The cystic duct was identified and mobilized. Then, I put two 5 mm metal clips on the proximal cystic duct, one on the distal cystic duct. The cystic duct had no significant dilatation. Then, I used the scissor transection for the cystic duct, rechecked, no active bleeding, no bile leak. The cystic artery was identified and mobilized. I put two 5 mm metal clips on the proximal cystic artery, one on the distal cystic artery, then I used the scissor transection for cystic artery, rechecked, no active bleeding. Then we used the Bovie to take down the gallbladder from the liver bed. Again, we rechecked, no active bleeding, no bile leak from the liver bed. Then, we removed the gallbladder through the catch bag, then we reinserted the Madi trocar in, connected to CO2 to create pneumoperitoneum again, looked around the abdomen, no bile leak, no active bleeding from the liver bed. Then, we removed all trocars under direct vision. No active bleeding from the trocar site. Pneumoperitoneum was released. I closed the umbilical incision, fascial layer by using #1 Vicryl [id number] x2, closed subcutaneous layer by using 2-0 Vicryl interruptedly, closed the skin by using 4-0 Vicryl continuous running, closed another three 5 mm trocar site skin only by using 4-0 Vicryl. Then we put the dressing on. The patient tolerated the procedure well. All the instrument, needle and sponge count were correct x2 at the end of case. The patient transferred to recovery room in stable condition. The specimen was sent to pathology. I attest to the content of the Intraoperative Record and any orders documented therein. Any exceptions are noted below. SANDIP
[2019-02-10] MEDS: DRONABINOL 2.5 MG CAP PO SCH (17:36)
[2019-02-10] MEDS: TRAMADOL HCL 50 MG TABLET PO PRN (19:05)
[2019-02-10] MEDS: ONDANSETRON INJ 2 MG/ML 2 ML VIAL IV PRN (19:06)
[2019-02-10] MEDS: LATANOPROST 0.005% OP SOLN 2.5 ML BTL OPB SCH (20:49)
[2019-02-10] MEDS: AMITRIPTYLINE HCL 10 MG TAB PO SCH (20:50)
--- NOTE | 2019-02-10 21:31 | Hospitalist Progress Note ---
Date of Service February 10, 2019 Assessment & Plan (1) Acute cholecystitis: s/p lap binta today by Dr. Lagunas. intra-op cholangiogram was negative for CBD abnormalities/stones. diet per surgery. repeat LFTs in am. (2) Abnormal gall bladder diagnostic imaging: CT at time of admission showed a distended gall bladder. RUQ u/s highly concerning for acute cholecystitis and choledocholithiasis. MRCP did not support RUQ u/s findings however. GI and gen surg saw patient - she refused MRCP and refused elective lap binta last week. HIDA scan this week with chronic cholecystitis. now s/p lap binta today. finish augmentin course. (3) Neuralgia, postherpetic: T11 or T12 dermatome on right. Initial outbreak of rash was first week of December. has tolerated cymbalta including titration to 30mg/day. did NOT tolerate lyrica or gabapentin in the past. continues w/ lidoderm patches. continue keppra 500mg BID. continue elail 10mg daily. will only be candidate for nerve block once gall bladder issue is resolved. (4) Acute UTI: 2nd to lactobacillus. resolved. (5) Severe protein-calorie malnutrition: 20+ pounds of weight loss in 6-8 weeks. additional weight loss while hospitalized. started marinol and tolerating this. seems to be helping nausea. hopefully the gall bladder is the reason for the GI intolerance. (6) Weight loss: suspect 2nd to chronic cholecystitis and now acute cholecystitis. (7) Depression: daughter confirms patient has had long-standing depression despite the patient denying such hopefully cymbalta will help titrate the cymbalta over time outpatient counseling -- if pt agrees to such (8) Pancreas cyst: will need surveillance of this post-d/c (9) DVT prophylaxis: lovenox daily but held due to lap binta resume post-op daughter updated extensively by phone this week Subjective saw the patient post-op from her lap binta. c/o abd pain. no nausea. was tired from recent anesthesia. had uneventful night last pm per staff. Review of Systems Respiratory: no cough and no dyspnea Cardiovascular: no chest pain Gastrointestinal: + abdominal pain; no nausea and no vomiting Physical Exam Constitutional: no acute distress, not obese and no altered mental status ENMT: external ear and nose normal, oropharynx normal Respiratory: normal respiratory effort, lungs clear to auscultation Cardiovascular: Rate/Rhythm: regular rate; + abnormal rhythm (extra beats?) Heart Sounds: normal S1 and normal S2 Vessels: posterior tibial pulses present and dorsalis pedis pulses present; no JVD Extremities: no edema Gastrointestinal (Abdomen): Inspection/Auscultation: + abdomen distended (mild); + abnormal bowel sounds (decreased) Percussion/Palpation: no guarding, abdomen not rigid and no hepatosplenomegaly Skin: surgical incisions clean Psychiatric: Orientation: alert and oriented x 3 Mood: + depressed mood Results & Data Vital Signs (Past 12 Hours) Vital Signs Temp Pulse Pulse Resp BP Pulse Ox 02/10/19 15:51 36.3 C L 64 18 168/80 H 99 02/10/19 15:25 36.3 C L 69 17 165/103 H 98 02/10/19 15:15 69 19 167/67 H 100 02/10/19 15:05 72 23 172/100 H 100 02/10/19 14:55 74 22 177/81 H 100 02/10/19 14:49 36.5 C 87 12 180/79 H 100 02/10/19 12:43 37.1 C 85 18 167/73 H 100 Laboratory Results INR, BMP -- within normal limits. (1) Depression Depression Type: unspecified Qualified Code(s): F32.9 - Major depressive disorder, single episode, unspecified
--- NOTE | 2019-02-11 06:50 | Surgery Progress Note ---
Date of Service February 11, 2019 Assessment & Plan (1) Abnormal gall bladder diagnostic [age]-year-old female who presented to the ED with persistent and increasing abdominal pain with history of shingles in December and postherpetic neuralgia on pain medication. She also had a history of persistent nausea with a 20 pound weight loss in last [address] scan of the abdomen and pelvis in the emergency room showed gallbladder distention however no other findings. Upon further workup of her chronic nausea and 20 pound weight loss she had a gallbladder ultrasound which showed distended gallbladder with mild thickening of the gallbladder wall and a positive Hackett sign on examination. She also had dilated common bile duct at 1.2 cm with suggestion of trace sludge and stones in the common bile duct. Her labs on presentation included no leukocytosis and total bilirubin along with LFTs and lipase were completely within normal limits. Upon questioning she again reports dysphagia. MRCP was negative for filling defects, and showed "suspected" trace sludge in the gallbladder. Plan: - Trial with course of antibiotic treatment for possible cholecystitis, can transition to oral; f/u with gen surg as an outpatient in 2-4 weeks - Okay for regular diet from surgical standpoint - Would recommend EGD for further workup of her dysphasia. 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 Please do not hesitate to contact us with any questions or concerns 02/10/2019 6:46AM I ( Holly Lagunas MD) recommend to do laparoscopic cholecystectomy, possible open or cholangiogram, D/W benefits, risks and alternatives of the surgery, the risks - infection, bleeding, injury CBD, bowel, OH, DVT, stroke, , pt understood, she agrees with surgery done by me, I answered all questions, 02/11/2019 6:47am F/U S/P lap binta, POD 1. pt is doing fine, pt can be discharged from surgical point. keep the dressing on for 4 days, she can take a shower on 02/15/2019, F/U me (Dr. Lagunas, )in 1-2 weeks, sign off today, please call us with any questions, Thanks, Subjective F/U S/P lap binta, pt is doing fine, no significant abdominal pain, no nausea, no vomiting, EGD done this am - mild gastritis seen only. she has had no further vomiting. nausea improved. "shingles" pain has been problematic today. still having upper abdominal pain but doesn't seem as severe. tolerating diet but eating little. is still willing to proceed forward with lap binta. Physical Exam Constitutional: WD/WN, vitals as above well developed and well nourished Neck: trachea midline, no thyromegaly Respiratory: normal respiratory effort, lungs clear to auscultation Cardiovascular: RRR, no murmur, no edema Rate/Rhythm: regular rhythm Gastrointestinal (Abdomen): Percussion/Palpation: abdomen soft no distend, no tenderness, all dressing intact Neurologic: awake Psychiatric: Orientation: alert and oriented x 3 Results & Data Vital Signs (Past 12 Hours) Vital Signs Temp Pulse Resp BP Pulse Ox 02/10/19 23:00 37.2 C 80 18 157/82 H 98
[2019-02-11 07:06] LABS: Hematocrit (blood only) 39.6 % (37-47); Mean Corpuscular Hgb Conc 35.4 g/dL (32-36); Mean Corpuscular Volume 94.5 fL (80-100); Mean Platelet Volume 9.9 fL (7.4-10.4); Platelet Count 217 K/uL (130-400); Red Blood Count 4.19 M/uL (4.2-5.4); White Blood Count 7.04 K/uL (4.8-10.8)
[2019-02-11 07:44] LABS: Albumin Level 2.8 gm/dl (3.4-5.0); BUN Creatinine Ratio 10.4 (10-20); Bilirubin,Total 0.7 mg/dl (0.2-1); Calcium 8.7 mg/dl (8.5-10.1); Creatinine Clr Calc Pharmacy 44.7 ml/min; Est GFR (African American) 66.4; Est GFR (Non-African American) 57.3; Globulin 2.9 gm/dl (2.5-4.0); Potassium 3.6 mmol/L (3.5-5.1); Total Protein 5.7 gm/dl (6.4-8.2)
[2019-02-11] MEDS: PANTOprazole 40 MG TAB PO SCH (08:51)
[2019-02-11] MEDS: CEROVITE ADV FORMULA TAB PO SCH (08:51)
[2019-02-11] MEDS: DULOXETINE HCL 30 MG CAP PO SCH (08:51)
[2019-02-11] MEDS: AMOXICILLIN/CLAVULANATE 875 MG TAB PO SCH ×2 (08:51→17:22)
[2019-02-11] MEDS: levETIRAcetam 500 MG TAB PO SCH ×2 (08:51→21:23)
[2019-02-11] MEDS: ENOXAPARIN INJ 40 MG/0.4 ML SYR SQ SCH (08:52)
[2019-02-11] MEDS: DICLOFENAC SOD 1% GEL 100 GM TUBE EXT SCH ×4 (08:53→21:23)
[2019-02-11] MEDS: BRIMONIDINE TARTRATE OPL SCH ×3 (08:54→21:23)
[2019-02-11] MEDS: NYSTATIN SUSP 500,000 U/5 ML UDC PO SCH ×4 (08:55→21:23)
[2019-02-11] MEDS: TRAMADOL HCL 50 MG TABLET PO PRN (11:22)
[2019-02-11] MEDS: ONDANSETRON INJ 2 MG/ML 2 ML VIAL IV PRN (11:25)
[2019-02-11] MEDS: LACTATED RINGER'S 1,000 ML IV SCH ×2 (11:54→21:25)
[2019-02-11] MEDS: OXYCODONE/ACETAMINOPHEN 5mg/325mg TAB PO PRN (12:24)
[2019-02-11] MEDS: PROMETHAZINE HCL 12.5 MG in SODIUM CHLORIDE 0.9% 50 ML IV PRN (13:22)
[2019-02-11] MEDS: MoRPHine SULFATE 4 MG/ML 1 ML CARP\\VIAL IV PRN (13:38)
[2019-02-11] MEDS: DRONABINOL 2.5 MG CAP PO SCH (17:22)
--- NOTE | 2019-02-11 21:19 | Hospitalist Progress Note ---
Date of Service February 11, 2019 Assessment & Plan (1) Acute cholecystitis: POD #1 s/p lap binta by Dr. Lagunas. intra-op cholangiogram was negative for CBD abnormalities/stones. tolerating clears. advance to full liquids in am. cut fluid rate to 50cc/hr. AST and ALT karlee today on AM labs. concerning. will repeat those labs in am. If they continue to remain high would re-consult [facility]. finish augmentin - 3 days left. 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 Initial outbreak of rash was first week of December. has tolerated cymbalta including titration to 30mg/day. consider titration to 60mg in the next week. did NOT tolerate lyrica or gabapentin in the past. continues w/ lidoderm patches. continue keppra 500mg BID. continue elavil 10mg daily. consider titration to 25mg daily. could be candidate for nerve block if needed per last note from pain management. (3) Acute UTI: 2nd to lactobacillus. resolved. (4) Severe protein-calorie malnutrition: 20+ pounds of weight loss in 6-8 weeks. additional weight loss while hospitalized. started marinol and tolerating this. seems to be helping nausea. hopefully the gall bladder is the reason for the GI intolerance. (5) Weight loss: suspect 2nd to chronic cholecystitis and now acute cholecystitis. cont marinol to help with nausea and appetite. (6) Depression: daughter confirms patient has had long-standing depression despite the patient denying such hopefully cymbalta will help titrate the cymbalta over time outpatient counseling -- if pt agrees to such (7) Pancreas cyst: will need surveillance of this post-d/c (8) DVT prophylaxis: lovenox daily daughter updated extensively by phone this week to [facility] - on Thursday ?? Subjective pt with nausea earlier today but improved as the day went on. states she had vomiting - witnessed by any one? mild incisional pain from surgery. passing gas and had small BM earlier today. "My shingles pain is doing a lot better" tolerating clear liquids Review of Systems Constitutional: no fever, no chills and no fatigue Respiratory: no dyspnea Cardiovascular: no chest pain Physical Exam Constitutional: no acute distress, not obese and no altered mental status ENMT: external ear and nose normal, oropharynx normal Respiratory: normal respiratory effort, lungs clear to auscultation Cardiovascular: RRR, no murmur, no edema Heart Sounds: normal S1 and normal S2 Vessels: posterior tibial pulses present and dorsalis pedis pulses present; no JVD Extremities: no edema Gastrointestinal (Abdomen): Percussion/Palpation: + abdomen tender (over incisions only) and abdomen soft; no guarding, abdomen not rigid and no hepatosplenomegaly Skin: no jaundice incisions and dressings on abd wall clean Psychiatric: Orientation: alert and oriented x 3 Mood: + depressed mood Results & Data Vital Signs (Past 12 Hours) Vital Signs Temp Pulse Resp BP Pulse Ox 02/11/19 16:00 36.9 C 87 18 162/83 H 97 Laboratory Results Laboratory Results - last 24 hr 02/11/19 02/11/19 06:26 06:26 WBC 7.04 RBC 4.19 L Hgb 14.0 Hct 39.6 MCV 94.5 MCH 33.4 MCHC 35.4 RDW Std Deviation 52.0 H RDW Coeff of Mikki 15.0 H Plt Count 217 MPV 9.9 Sodium 140 Potassium 3.6 Chloride 105 Carbon Dioxide 29 Anion Gap 7.0 BUN 10 D Creatinine 0.94 Est Cr Clr Drug Dosing 44.7 Est GFR ( Amer) 66.4 Est GFR (Non-Af Amer) 57.3 BUN/Creatinine Ratio 10.4 Glucose 97 Calcium 8.7 Total Bilirubin 0.7 AST 121 H ALT 132 H Alkaline Phosphatase 110 Total Protein 5.7 L Albumin 2.8 L Globulin 2.9 Albumin/Globulin Ratio 1.0 (1) Depression Depression Type: unspecified Qualified Code(s): F32.9 - Major depressive disorder, single episode, unspecified
[2019-02-11] MEDS: LATANOPROST 0.005% OP SOLN 2.5 ML BTL OPB SCH (21:23)
[2019-02-11] MEDS: AMITRIPTYLINE HCL 10 MG TAB PO SCH (21:23)
[2019-02-12] MEDS: TRAMADOL HCL 50 MG TABLET PO PRN (03:00)
--- NOTE | 2019-02-12 09:40 | Surgery Progress Note ---
Date of Service February 12, 2019 Assessment & Plan (1) Abnormal gall bladder diagnostic imagin-year-old female POD#2 from lap cholecystectomy for distended gallbladder with trace stones/ sludge in the setting of history of shingles in December and postherpetic neuralgia on pain medication. Tolerating slow advancement of diet. Incisions look OK (as dressings were loosening, outer dressings removed. Leave steristrips on for 7-10 days). OK to advance to low fat diet as tolerated. Further treatment plan as per medicine. Stable for discharge from surgical standpoint once medical issues under control. Will sign off - please contact if problems/ questions. F/U Dr. Lagunas in 1-2 weeks, Subjective pt states the pain has finally resolved. she is afraid to move as she fears the pain may return. Tolerated liquids yesterday and oatmeal this morning. No nausea today. Dressings were coming loose overnight. Review of Systems Review of Systems: ROS unchanged from previous Physical Exam Constitutional: WD/WN, vitals as above Respiratory: normal respiratory effort, lungs clear to auscultation Cardiovascular: RRR, no murmur, no edema Gastrointestinal (Abdomen): Inspection/Auscultation: abdomen normal to inspection and normal bowel sounds; abdomen not distended Percussion/Palpation: abdomen soft incisions clean but bruised, outer dressings removed Results & Data Vital Signs (Past 12 Hours) Vital Signs Temp Pulse Resp BP BP Pulse Ox 02/12/19 07:38 37.1 C 85 16 154/69 H 96 02/11/19 23:10 37.1 C 97 H 18 168/95 H 94
[2019-02-12 09:46] LABS: Albumin Level 2.9 gm/dl (3.4-5.0); BUN Creatinine Ratio 7.3 (10-20); Calcium 9.1 mg/dl (8.5-10.1); Creatinine Clr Calc Pharmacy 44.7 ml/min; Est GFR (African American) 66.4; Est GFR (Non-African American) 57.3; Magnesium 2.1 mg/dl (1.8-2.4); Potassium 3.8 mmol/L (3.5-5.1)
[2019-02-12] MEDS: levETIRAcetam 500 MG TAB PO SCH ×2 (09:46→20:20)
[2019-02-12] MEDS: CEROVITE ADV FORMULA TAB PO SCH (09:46)
[2019-02-12] MEDS: AMOXICILLIN/CLAVULANATE 875 MG TAB PO SCH ×2 (09:46→17:44)
[2019-02-12] MEDS: DULOXETINE HCL 30 MG CAP PO SCH (09:46)
[2019-02-12] MEDS: NYSTATIN SUSP 500,000 U/5 ML UDC PO SCH ×4 (09:47→20:22)
[2019-02-12] MEDS: ENOXAPARIN INJ 40 MG/0.4 ML SYR SQ SCH (09:47)
[2019-02-12] MEDS: DICLOFENAC SOD 1% GEL 100 GM TUBE EXT SCH ×4 (09:47→20:21)
[2019-02-12 09:48] LABS: Bilirubin,Total 0.6 mg/dl (0.2-1); Total Protein 5.9 gm/dl (6.4-8.2)
[2019-02-12] MEDS: BRIMONIDINE TARTRATE OPL SCH ×3 (09:49→20:21)
--- NOTE | 2019-02-12 12:34 | Hospitalist Progress Note ---
Date of Service February 12, 2019 Assessment & Plan (1) Acute cholecystitis: POD #2 s/p lap binta by Dr. Lagunas. Had prolonged course prior to lap binta due to resistance to having surgery for fear it would exacerbate her shingles pain intra-op cholangiogram was negative for CBD abnormalities/stones. tolerating full liquids and advanced diet for lunch today to low fat-tolerating thus far -dc IVFs -pain control, bowel regimen AST and LAT improved from yesterday, not concerning -continue augmentin -2 more days (2) Neuralgia, postherpetic: T11 or T12 dermatome on right. Initial outbreak of rash was first week of December. Pain MUCH IMRPOVED control now has tolerated cymbalta including titration to 30mg/day. consider titration to 60mg in the next week. did NOT tolerate lyrica or gabapentin in the past. continues w/ lidoderm patches. continue keppra 500mg BID. continue elavil 10mg daily. could be candidate for nerve block if needed per last note from pain management. (3) Acute UTI: Secondary to lactobacillus. resolved. (4) Severe protein-calorie malnutrition: 20+ pounds of weight loss in 6-8 weeks. additional weight loss while hospitalized. started marinol and tolerating this. seems to be helping nausea. hopefully the gall bladder is the reason for the GI intolerance-seems to be improved already with removal of GB (5) Weight loss: suspect secondary to chronic cholecystitis and now acute cholecystitis. cont marinol to help with nausea and appetite. (6) Depression: daughter confirms patient has had long-standing depression despite the patient denying such hopefully cymbalta will help titrate the cymbalta over time outpatient counseling -- if pt agrees to such (7) Pancreas cyst: will need surveillance of this post-d/c (8) DVT prophylaxis: lovenox daily Dispo-hopeful for dc to [facility] on Thursday Subjective Improved today overall, pain at shingles site is finally controlled. Has nausea stil today but is improved from previous. Was able to eat a few bites of a low fat diet today for the first time in a long time. Moving bowels. Review of Systems Review of Systems: All systems reviewed & are unremarkable except as noted in HPI & below Physical Exam Constitutional: WD/WN, vitals as above Eyes: PERRL, conjunctivae normal, anicteric sclerae ENMT: external ear and nose normal, oropharynx normal Neck: trachea midline, no thyromegaly Respiratory: normal respiratory effort, lungs clear to auscultation Cardiovascular: RRR, no murmur, no edema Gastrointestinal (Abdomen): Inspection/Auscultation: normal bowel sounds; + abdomen abnormal to inspection (steri strips in place with some dried blood over 3 lap sites) Percussion/Palpation: + abdomen tender (in RLQ and right flank, no rebound or guarding) and abdomen soft Musculoskeletal: Extremities: extremities normal to inspection; no cyanosis and no clubbing Skin: + rash (right lower back and right lower abd with mildly erythematous macular rash); no lesions (no vesicles) Neurologic: moves all extremities and awake; no focal motor deficits Psychiatric: A+Ox3, euthymic affect Results & Data Vital Signs (Past 12 Hours) Vital Signs Temp Pulse Resp BP Pulse Ox 02/12/19 07:38 37.1 C 85 16 154/69 H 96 Laboratory Results 02/12/19 Range/Units 08:53 Sodium 139 (136-145) mmol/L Potassium 3.8 (3.5-5.1) mmol/L Chloride 105 (98-107) mmol/L Carbon Dioxide 28 (21-32) mmol/L Anion Gap 6.0 (3-11) BUN 7 (7-18) mg/dl Creatinine 0.94 (0.6-1.2) mg/dl Est Cr Clr Drug Dosing 44.7 ml/min Est GFR ( Amer) 66.4 Est GFR (Non-Af Amer) 57.3 BUN/Creatinine Ratio 7.3 L (10-20) Glucose 88 (70-99) mg/dl Calcium 9.1 (8.5-10.1) mg/dl Magnesium 2.1 (1.8-2.4) mg/dl Total Bilirubin 0.6 (0.2-1) mg/dl AST 47 H (15-37) U/L ALT 80 H (12-78) U/L Alkaline Phosphatase 103 (45-117) U/L Total Protein 5.9 L (6.4-8.2) gm/dl Albumin 2.9 L (3.4-5.0) gm/dl Globulin 3.0 (2.5-4.0) gm/dl Albumin/Globulin Ratio 1.0 (0.9-2) (1) Depression Depression Type: unspecified Qualified Code(s): F32.9 - Major depressive disorder, single episode, unspecified
[2019-02-12] MEDS: OXYCODONE/ACETAMINOPHEN 5mg/325mg TAB PO PRN (13:22)
[2019-02-12] MEDS: MoRPHine SULFATE 4 MG/ML 1 ML CARP\\VIAL IV PRN (13:44)
[2019-02-12] MEDS: DRONABINOL 2.5 MG CAP PO SCH (17:44)
[2019-02-12] MEDS: LATANOPROST 0.005% OP SOLN 2.5 ML BTL OPB SCH (20:20)
[2019-02-12] MEDS: AMITRIPTYLINE HCL 10 MG TAB PO SCH (20:20)
[2019-02-13] MEDS: MoRPHine SULFATE 4 MG/ML 1 ML CARP\\VIAL IV PRN ×2 (00:39→08:42)
[2019-02-13] MEDS: ONDANSETRON INJ 2 MG/ML 2 ML VIAL IV PRN (08:37)
[2019-02-13 08:41] LABS: Basophils # (auto) 0.02 K/uL (0-0.2); Basophils % (auto) 0.3 %; Eosinophils # (auto) 0.23 K/uL (0-0.5); Eosinophils % (auto) 3.5 %; Hemoglobin 15.2 g/dL (12.0-16.0); Immature Granulocytes # (auto) 0.01 K/uL (0.00-0.02); Immature Granulocytes % (auto) 0.2 %; Lymphocytes # (auto) 1.24 K/uL (1.2-3.4); Lymphocytes % (auto) 18.8 %; Mean Corpuscular Hgb Conc 35.3 g/dL (32-36); Mean Corpuscular Volume 94.9 fL (80-100); Mean Platelet Volume 9.6 fL (7.4-10.4); Monocytes # (auto) 0.71 K/uL (0.11-0.59); Monocytes % (auto) 10.7 %; Neutrophils % (auto) 66.5 %; Platelet Count 199 K/uL (130-400); RDW Coefficient of Variation 14.5 % (11.5-14.5); RDW Standard Deviation 50.5 fL (36.4-46.3); Red Blood Count 4.53 M/uL (4.2-5.4); White Blood Count 6.61 K/uL (4.8-10.8)
[2019-02-13] MEDS: NYSTATIN SUSP 500,000 U/5 ML UDC PO SCH ×4 (08:46→20:12)
[2019-02-13] MEDS: levETIRAcetam 500 MG TAB PO SCH ×2 (08:47→20:12)
[2019-02-13] MEDS: DULOXETINE HCL 30 MG CAP PO SCH (08:47)
[2019-02-13] MEDS: CEROVITE ADV FORMULA TAB PO SCH (08:47)
[2019-02-13] MEDS: AMOXICILLIN/CLAVULANATE 875 MG TAB PO SCH (08:47)
[2019-02-13] MEDS: ENOXAPARIN INJ 40 MG/0.4 ML SYR SQ SCH (08:50)
[2019-02-13] MEDS: BRIMONIDINE TARTRATE OPL SCH ×3 (08:51→20:10)
[2019-02-13] MEDS: DICLOFENAC SOD 1% GEL 100 GM TUBE EXT SCH ×4 (08:51→20:12)
[2019-02-13 09:16] LABS: BUN Creatinine Ratio 9.6 (10-20); Bilirubin Direct 0.2 mg/dl (0-0.2); Calcium 9.3 mg/dl (8.5-10.1); Creatinine Clr Calc Pharmacy 47.2 ml/min; Est GFR (African American) 70.9; Est GFR (Non-African American) 61.2; Potassium 3.8 mmol/L (3.5-5.1)
[2019-02-13 09:19] LABS: Albumin Globulin Ratio 0.9 (0.9-2); Bilirubin,Total 0.6 mg/dl (0.2-1); Globulin 3.4 gm/dl (2.5-4.0); Total Protein 6.4 gm/dl (6.4-8.2)
[2019-02-13] MEDS: OXYCODONE/ACETAMINOPHEN 5mg/325mg TAB PO PRN ×2 (11:22→16:41)
[2019-02-13] MEDS: DRONABINOL 2.5 MG CAP PO SCH (16:47)
--- NOTE | 2019-02-13 17:33 | Hospitalist Progress Note ---
Date of Service February 13, 2019 Assessment & Plan (1) Acute cholecystitis: POD #3 s/p lap binta by Dr. Lagunas. Had prolonged course prior to lap binta due to resistance to having surgery for fear it would exacerbate her shingles pain intra-op cholangiogram was negative for CBD abnormalities/stones. 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 Initial outbreak of rash was first week of December. Pain was significantly improved yesterday, today is worse but I feel like I am seeing her just as she recently got pain medicine. -Continue Cymbalta 30 mg a day and titrate up to 60 mg next week -did NOT tolerate lyrica or gabapentin in the past. -continues w/ lidoderm patches. -continue keppra 500mg BID. -continue elavil 10mg daily. -could be candidate for nerve block if needed per last note from pain management. -Continue oxycodone as needed -Continue Voltaren gel (3) Acute UTI: Secondary to lactobacillus. resolved. (4) Severe protein-calorie malnutrition: 20+ pounds of weight loss in 6-8 weeks. additional weight loss while hospitalized. started marinol and tolerating this. seems to be helping nausea. hopefully the gall bladder is the reason for the GI intolerance-seems to be improved already with removal of GB (5) Weight loss: suspect secondary to chronic cholecystitis and now acute cholecystitis. cont marinol to help with nausea and appetite. (6) Depression: daughter confirms patient has had long-standing depression despite the patient denying such hopefully cymbalta will help titrate the cymbalta over time outpatient counseling -- if pt agrees to such (7) Pancreas cyst: will need surveillance of this post-d/c (8) Nausea: Chronic and going on for almost 2 months Hopeful that cholecystectomy will relieve the nausea given the chronic cholec ystitis that she had -Continue Zofran as needed and convert to p.o. on discharge (9) DVT prophylaxis: lovenox daily Dispo-hopeful for dc to [facility] [address] Subjective I woke patient from sleep when I saw her today and after she rolled over, she told me "I feel terrible." She rates her pain in the right lower quadrant at a 9 or 10 out of 10 after she woke up from sleep. Feels like she has have a bowel movement today. Had some nausea which was relieved earlier with IV Zofran. Still feels like her appetite is very low Review of Systems Review of Systems: All systems reviewed & are unremarkable except as noted in HPI & below Physical Exam Constitutional: WD/WN, vitals as above Eyes: PERRL, conjunctivae normal, anicteric sclerae Neck: trachea midline, no thyromegaly Respiratory: normal respiratory effort, lungs clear to auscultation Cardiovascular: RRR, no murmur, no edema Gastrointestinal (Abdomen): normal bowel sounds, soft, nontender, no hepatosplenomegaly Inspection/Auscultation: normal bowel sounds; + abdomen abnormal to inspection (Laparoscopic surgical sites with scabs, Steri-Strips now off) Percussion/Palpation: + abdomen tender (in RLQ,no rebound or guarding) and abdomen soft Musculoskeletal: Extremities: extremities normal to inspection; no cyanosis and no clubbing Neurologic: moves all extremities and awake; no focal motor deficits Psychiatric: Orientation: alert and oriented x 3 Affect: + depressed affect Results & Data Vital Signs (Past 12 Hours) Vital Signs Temp Pulse Pulse Resp BP BP Pulse Ox 02/13/19 15:05 36.9 C 75 16 154/89 H 95 02/13/19 11:27 36.8 C 73 16 166/84 H 98 02/13/19 08:48 37.2 C 91 H 20 166/86 H 98 Laboratory Results 02/13/19 02/13/19 Range/Units 08:25 08:25 WBC 6.61 (4.8-10.8) K/uL RBC 4.53 (4.2-5.4) M/uL Hgb 15.2 (12.0-16.0) g/dL Hct 43.0 (37-47) % MCV 94.9 (80-100) fL MCH 33.6 (25-34) pg MCHC 35.3 (32-36) g/dL RDW Std Deviation 50.5 H (36.4-46.3) fL RDW Coeff of Mikki 14.5 (11.5-14.5) % Plt Count 199 (130-400) K/uL MPV 9.6 (7.4-10.4) fL Immature Gran % (Auto) 0.2 % Neut % (Auto) 66.5 % Lymph % (Auto) 18.8 % [place] % (Auto) 10.7 % Eos % (Auto) 3.5 % Baso % (Auto) 0.3 % Immature Gran # (Auto) 0.01 (0.00-0.02) K/uL Neut # (Auto) 4.40 (1.4-6.5) K/uL Lymph # (Auto) 1.24 (1.2-3.4) K/uL [place] # (Auto) 0.71 H (0.11-0.59) K/uL Eos # (Auto) 0.23 (0-0.5) K/uL Baso # (Auto) 0.02 (0-0.2) K/uL Sodium 139 (136-145) mmol/L Potassium 3.8 (3.5-5.1) mmol/L Chloride 104 (98-107) mmol/L Carbon Dioxide 25 (21-32) mmol/L Anion Gap 10.0 (3-11) BUN 9 (7-18) mg/dl Creatinine 0.89 (0.6-1.2) mg/dl Est Cr Clr Drug Dosing 47.2 ml/min Est GFR ( Amer) 70.9 Est GFR (Non-Af Amer) 61.2 BUN/Creatinine Ratio 9.6 L (10-20) Glucose 83 (70-99) mg/dl Calcium 9.3 (8.5-10.1) mg/dl Total Bilirubin 0.6 (0.2-1) mg/dl Direct Bilirubin 0.2 (0-0.2) mg/dl AST 32 (15-37) U/L ALT 64 (12-78) U/L Alkaline Phosphatase 108 (45-117) U/L Total Protein 6.4 (6.4-8.2) gm/dl Albumin 3.0 L (3.4-5.0) gm/dl Globulin 3.4 (2.5-4.0) gm/dl Albumin/Globulin Ratio 0.9 (0.9-2) (1) Depression Depression Type: unspecified Qualified Code(s): F32.9 - Major depressive disorder, single episode, unspecified
[2019-02-13] MEDS: LATANOPROST 0.005% OP SOLN 2.5 ML BTL OPB SCH (20:12)
[2019-02-13] MEDS ORDERED: AMITRIPTYLINE HCL 10 MG TAB PO SCH (21:00)
[2019-02-14] MEDS: OXYCODONE/ACETAMINOPHEN 5mg/325mg TAB PO PRN ×3 (02:49→11:38)
[2019-02-14] MEDS: BRIMONIDINE TARTRATE OPL SCH (08:38)
[2019-02-14] MEDS: ENOXAPARIN INJ 40 MG/0.4 ML SYR SQ SCH (08:39)
[2019-02-14] MEDS: CEROVITE ADV FORMULA TAB PO SCH (08:39)
[2019-02-14] MEDS: levETIRAcetam 500 MG TAB PO SCH (08:39)
[2019-02-14] MEDS: NYSTATIN SUSP 500,000 U/5 ML UDC PO SCH ×2 (08:39→13:04)
[2019-02-14] MEDS: DICLOFENAC SOD 1% GEL 100 GM TUBE EXT SCH ×2 (08:40→13:04)
[2019-02-14] MEDS ORDERED: DULOXETINE HCL 60 MG CAP PO SCH (09:00)
--- NOTE | 2019-02-14 11:45 | Discharge Summary ---
Date of Service February 14, 2019 Admission HPI Per Admitting Provider The patient is an 79-year-old female who was treated for shingles in early December, has a healed rash with residual markings, but has had persistent right low back pain radiating toward the front of her abdomen, and down her right thigh, that has become intolerable. Principal Diagnosis Acute cholecystitis, intractable pain from postherpetic neuralgia Chronic nausea with weight loss Discharge Exam Constitutional WD/WN, vitals as above Eyes PERRL, conjunctivae normal, anicteric sclerae ENMT external ear and nose normal, oropharynx normal Neck trachea midline, no thyromegaly Respiratory normal respiratory effort, lungs clear to auscultation Cardiovascular RRR, no murmur, no edema Gastrointestinal (Abdomen) Inspection/Auscultation: normal bowel sounds; + abdomen abnormal to inspection (Laparoscopic surgical sites with scabs, Steri-Strips now off) Percussion/Palpation: + abdomen tender (in RLQ,no rebound or guarding) and abdomen soft Musculoskeletal Extremities: extremities normal to inspection; no cyanosis and no clubbing Skin + rash (right lower back and right lower abd with mildly erythematous macular rash); no lesions (no vesicles) Neurologic moves all extremities and awake; no focal motor deficits Psychiatric Orientation: alert and oriented x 3 Affect: + depressed affect Discharge Data Allergies Allergy/AdvReac Type Severity Reaction Status Date / Time tomato Allergy Anaphylaxis Verified 02/10/19 12:46 FRUIT Allergy Anaphylaxis Uncoded 01/29/19 20:19 Consultations Pain Management General Surgery Gastroenterology Procedures Performed Operation Date: 02/09/19 08:30 Actual Procedures p EGD Biopsy Cytology - Abiel Zuleta MD Operation Date: 02/10/19 13:00 Actual Procedures p Laparoscopic Cholecystectomy with Cholangiogram - Holly Lagunas MD Ordered Studies 01/29/19 20:38 CT abd pelvis wo con Stat 01/31/19 16:07 US gallbladder Routine 02/01/19 12:06 MR MRCP Routine 02/10/19 13:26 FL cholangiogram OR Routine KUB x-ray Chest/abdomen x-ray Hospital Course (1) Acute cholecystitis: POD #4 s/p lap binta by Dr. Lagunas. Had prolonged course prior to lap binta due to resistance to having surgery for fear it would exacerbate her shingles pain intra-op cholangiogram was negative for CBD abnormalities/stones. tolerating low-fat diet but appetite remains low due to pain from her shingles as below -Continue with pain control, bowel regimen-she is moving her bowels LFTs are much improved from yesterday, not concerning -Completed a 10-day course of IV and p.o. 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 Initial outbreak of rash was first week of December. Pain is modestly improved over the 14-day hospital admission with the addition of multiple medications as below: -Continue Cymbalta which has been titrated up to 60 mg daily starting 02/14/2019 -did NOT tolerate lyrica or gabapentin in the past. Lidoderm patches did not help -continue keppra 500mg BID. -continue elavil 20 mg daily which was also titrated up on 02/14/2019. -could be candidate for nerve block if needed per last note from pain management-we will ask the detention facility to arrange for follow-up appointment with pain management after discharge -Continue oxycodone/APAP as needed -Continue Voltaren gel (3) Acute UTI: Secondary to lactobacillus. resolved after treatment with Unasyn and Augmentin (4) Severe protein-calorie malnutrition: 20+ pounds of weight loss in 6-8 weeks. additional weight loss while hospitalized. started marinol which does not seem to have helped much-we will discontinue on discharge -Should take ondansetron as needed hopefully the gall bladder is the reason for the GI intolerance-seems to be somewhat improved already with removal of GB-she is eating some of her low-fat diet (5) Weight loss: suspect secondary to chronic cholecystitis and now acute cholecystitis. -Controlled nausea -Encouraged p.o. 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 on discharge (9) DVT prophylaxis: lovenox daily Dispo-stable for discharge to detention facility today Total Time Total Time Spent Total Time Spent (In Minutes): Greater than 30 minutes Total Time Includes: Examination of the Patient, Discharge Planning and Medication Reconciliation Discharge Plan Discharge Items Patient Disposition: Transfer [facility] Reason For Visit: INTRACTABLE POSTHERPETIC NEURALGIA Discharge Diagnosis: Postherpetic neuralgia, acute cholecystitis Discharge Goals: Decrease discomfort, Diagnostic testing, Improve disease control, Increase independence, Learn about illness and Therapeutic intervention Activity: As commented below Lifting: Gradually increase as tolerated Bathing: No limitations Exercise/Sports: Gradually increase as tolerated Non-emergency contact: Primary Care Provider and Surgeon Call non-emergency contact if: you have any medication questions, your symptoms worsen, your pain is not controlled, your pain is worsening, your pain is unusual for you, your pain is concerning for you, your temperature is above 100.5, your wound has increased redness, your wound has increased drainage and your wound pain has increased Follow-up/Referrals: Keyona Meneses DO [Physician] - (Please follow-up with pain management if pain persists in the area of the postherpetic neuralgia) Tereso Schwab MD [Primary Care Provider] - (Please follow-up with PCP within 1 week after discharge from rehab facility.) Holly Lagunas MD [Physician] - (Please follow-up within 1 to 2 weeks after discharge) Diet: Low Fat Addtl Provider Instructions: You were admitted with right lower abdominal and flank pain which is secondary to postherpetic neuralgia from your shingles that you had in December. He was started on multiple medications to help control your pain. It was modestly improved at the time of discharge and may persist for several months. Please follow-up with the shipyard painting supervisor to see if there is anything else that can be done for you after discharge. You also were found to have acute cholecystitis and had your gallbladder removed and treated with antibiotics for 10 days. You are improved from this and should remain on a low fat diet. Please follow-up with surgeon as instructed below. Surgical Discharge instructions: -No heavy lifting over 20 pounds for 3 weeks - No strenuous activity until cleared by surgeon - No submerging incisions underwater for 2 weeks (no bathing, swimming, or hot tubs) - No driving while taking narcotic pain medication or until you are pain free - you may shower in 3 days. Sponge bath and wash hair in meantime - Remove steri strips in 7 days. - Walking and light activity is encouraged daily - recommend stool softener while taking narcotic pain medication to prevent constipation. Drink plenty of water, avoid foods that constipate, and daily walking will help as well. - Follow-up in surgical office in 2 weeks, please call office at [phone] to make an appointment. Prescriptions: New amitriptyline 10 mg Tablet 20 mg PO HS Qty: 60 RF: 0 diclofenac sodium [Voltaren] 1 % Gel 1 % EXT QID Qty: 100 RF: 0 levetiracetam [Keppra] 500 mg Tablet 500 mg PO BID Qty: 60 RF: 0 duloxetine 60 mg Capsule,Delayed Release(Dr/Ec) 60 mg PO QAM Qty: 30 RF: 0 oxycodone-acetaminophen [Percocet] 5-325 mg Tablet 1 tab PO Q4H PRN (Reason: pain) Qty: 10 RF: 0 Certavite-Antioxidant 18-400 mg-mcg Tablet 1 tab PO QAM Qty: 30 RF: 0 Continued latanoprost 0.005 % Drops 1 drp OPB PM RF: 0 Alphagan P 0.1 % drops 1 drp OPL TID RF: 0 Discontinued gabapentin 300 mg capsule 300 mg PO TID RF: 0 oxycodone 10 mg tablet 10 mg PO UD PRN (Reason: Pain) RF: 0 Stand-Alone Forms: Call Back Authorization, [facility] Discharge Orders: Discharge Order (Routine); Ordered 02/14/19 Ordered By: Alessandra Grace Skilled Items Patient informed of condition?: Yes DNR: No Discharge Level of Care: Skilled Communicable Disease: No Discharge Prognosis: Improving Admission Data Admit Date/Time: 01/31/19 19:22 Attending Provider: Alessandra Grace Admit Provider: Wilver Hebert Primary Care Provider: Tereso Schwab Other Providers: Garry Duran ; Wilver Hebert ; Keyona Meneses ; Lexy Perez ; Marisel Orta Service: Medical Other Interventions: Discharge Summary Assessment (RN) Last Done: 02/09/19 10:57 Pending Studies at Discharge: Yes Studies:: Final pathology from the gallbladder
== END 2019-02-14 14:01 | DRG 417 ==
LOC: 4E 18:49 → ED 18:49 → SUATTDRO 23:50 → 4E 01-30 00:33 → SUATTDRO 01-31 19:22 → 3E 02-13 11:11

== ENCOUNTER 2022-12-15 18:23 | Inpatient (IN) ==
--- NOTE | 2022-12-15 18:28 | Emergency Department Note ---
Impression & Plan Hypoxia, Syncope, Weakness, COVID-19 ED Provider Note NAME: CARLOS FREIRE AGE: 82 SEX: F : 1940 ARRIVES VIA: Ambulance INFORMANT: Patient, ED PROVIDER(S): Kevan Myrick MD CHIEF COMPLAINT: Syncope MEDICAL DECISION MAKING: Patient presented due to concern for an episode of syncope. Blood work is obtained and IV was established patient was ordered IV fluids as well as IV dexamethasone as the patient reportedly was hypoxemic 88-89% on room air. Blood work shows normal white count H&H and platelet count. Patient's kidney function is 1.5 slightly worse from before comparison October 2021 1.28. Patient is COVID-positive. The patient's chest x-ray does not show any obvious pneumonia. On presenting back to the room the patient was hypoxemic to 85% on room air. The patient was placed on supplemental nasal cannula. Given this with the associated syncope I did speak with the on-call hospitalist service Dr. Muniz and the patient was admitted to the medicine service. Critical Care: I have personally spent 35 minutes of critical care time in direct management of this patient. This includes bedside care, interpretation of diagnostic studies, and testing, discussion with consultants, patient, and family members, and other require inpatient management activities. This 35 minutes is in excess of all separately billable procedures. Prior /Outside records reviewed: I did review the patient's pulmonary visit from December [address] Montanez. Patient had been on Eliquis at that time Differential diagnosis: Vasovagal event, dehydration, infection, hypoglycemia, electrolyte abnormalities, cardiac sources, intracerebral event, pulmonary embolism, seizure, toxicologic, neurologic, as well as other pathologies. Diagnostics, as interpreted by me: ECG: Normal sinus rhythm, rate of 77 normal intervals normal axis no ST elevations T wave version V2 but not in V3. No change from comparison EKG J anuary 2021. Cardiac monitoring: An order was placed for continuous cardiac monitoring. The monitor shows a rate of 75 with sinus rhythm. Patient was placed on pulse oximetry Medical decision rules: None Imaging studies: See below HPI: Patient presents via EMS due to concern for syncope. The patient states that she did not realize it but that the patient's family member noted that the patient had passed out. The patient denies any tongue biting or incontinence. Patient does not think that she struck her head has no head or neck pain. The patient does complain of diffuse weakness and states that she recently tested positive for COVID-19 today. Patient has had COVID-19 in the past. Patient denies any chest pains or shortness of breath nausea vomiting but has had decreased p.o. intake. Patient states that she was feeling lightheaded and dizzy at the time that she had passed out but was unsure that she did but was notified by her family member. Patient currently does not take Eliquis and last took this last March. Patient denies any numbness tingling or focal weakness. EMS reports that the patient did have an episode of vomiting and did receive 4 mg of Zofran. The patient reportedly had a BSG in the 130s. PAST MEDICAL HISTORY: See Below PAST SURGICAL HISTORY: See Below SOCIAL HISTORY: See Below HOME MEDICATIONS: See Below ALLERGIES: See Below VITALS: See Below PHYSICAL EXAMINATION: GENERAL: NAD, wearing a mask, non-toxic. EYE EXAM: Normal conjunctiva. PERRL, no anisocoria and EOM's grossly intact w/o pain. NECK: Supple, no nuchal rigidity, no adenopathy, non-tender. No signs of meningismus. FROM of the neck with good chin to chest and neck extension. No stridor. LUNGS: Clear to auscultation. Normal chest wall mechanics. HEART: NSR, no MRG. ABDOMEN: Abdomen soft, non-tender, normo-active bowel sounds, no masses, no rebound or guarding. BACK: No CVA TTP. SKIN: No rashes and no bruising. UPPER EXTREMITIES: Upper extremities are grossly normal. LOWER EXTREMITIES: Grossly normal, no edema. NEURO EXAM: A&O x3, cranial nerves II-XII grossly intact, normal speech, moves all 4 extremities. Past Med/Surg History Medical History Acute cholecystitis COVID Depression Dyspnea on exertion Glaucoma H/O: HTN (hypertension) Pancreas cyst Pulmonary embolism Severe protein-calorie malnutrition Shingles Surgical History H/O esophagogastroduodenoscopy H/O tooth extraction No pertinent past surgical history Status post glaucoma surgery Family History Other No pertinent family history Social History Smoking Status: Never smoker Hx Alcohol Use: No Hx Substance Use: No Preferred Language: Tajik Communication Ability: Effective Malariologist Required: No Beliefs That Will Affect Care: None Current Living Situation: Alone current occupational status: retired Feels Safe at Home: Yes Assistive Devices: Glasses and Walker Allergies Allergies Allergy/AdvReac Type Severity Reaction Status Date / Time banana Allergy Intermediate ITCHY, Verified 12/15/22 21:17 IRRITATED, SLIGHT SWELLING OF THROAT Home Meds Home Medications Medication Instructions Recorded Confirmed latanoprost 0.005 % eye drops 1 drp OPB PM 12/16/18 12/15/22 gabapentin 300 mg capsule 300 mg PO TID 10/24/21 12/15/22 Results & Data (ED) Vital Signs Vital Signs - 24 hr 12/15/22 19:04 12/15/22 19:06 12/15/22 19:10 Temperature 37.5 C Temperature Source Oral Pulse Rate 81 Pulse Rate from SpO2 Sensor 79 96 H Pulse Rhythm Regular Pulse Strength Normal Respiratory Rate 20 Respiratory Effort / Characteristics Non-Labored Spontaneous Respiratory Depth Normal Respiratory Pattern Regular Blood Pressure 146/68 H Blood Pressure Mean 94 Blood Pressure Position Lying Pulse Oximetry 94 97 93 Oxygen Delivery Method Room Air Sepsis Recent Fever Within 48 Hours No Sepsis New/Unexplained Change in Mental Status N/A Sepsis Action Taken by Nursing No Action Required 12/15/22 19:20 12/15/22 19:30 12/15/22 19:30 Temperature Temperature Source Pulse Rate Pulse Rate from SpO2 Sensor 81 79 Pulse Rhythm Pulse Strength Respiratory Rate Respiratory Effort / Characteristics Respiratory Depth Respiratory Pattern Blood Pressure 127/65 Blood Pressure Mean 85 Blood Pressure Position Pulse Oximetry 96 98 Oxygen Delivery Method Sepsis Recent Fever Within 48 Hours Sepsis New/Unexplained Change in Mental Status Sepsis Action Taken by Nursing 12/15/22 20:00 12/15/22 20:00 12/15/22 20:30 Temperature Temperature Source Pulse Rate Pulse Rate from SpO2 Sensor 86 Pulse Rhythm Pulse Strength Respiratory Rate Respiratory Effort / Characteristics Respiratory Depth Respiratory Pattern Blood Pressure 144/72 H 129/61 Blood Pressure Mean 96 83 Blood Pressure Position Pulse Oximetry 94 Oxygen Delivery Method Room Air Sepsis Recent Fever Within 48 Hours Sepsis New/Unexplained Change in Mental Status Sepsis Action Taken by Nursing 12/15/22 20:30 12/15/22 21:00 12/15/22 21:00 Temperature Temperature Source Pulse Rate Pulse Rate from SpO2 Sensor 85 81 Pulse Rhythm Pulse Strength Respiratory Rate Respiratory Effort / Characteristics Respiratory Depth Respiratory Pattern Blood Pressure 130/69 Blood Pressure Mean 89 Blood Pressure Position Pulse Oximetry 94 85 L Oxygen Delivery Method Room Air Room Air Sepsis Recent Fever Within 48 Hours Sepsis New/Unexplained Change in Mental Status Sepsis Action Taken by Retirement Medications Current Medication List: was personally reviewed by me Laboratory Data Attestation: I reviewed the patient's lab results. 12/15/22 19:18 12/15/22 19:18 Lab Results 12/15/22 12/15/22 12/15/22 Range/Units 19:18 19:18 19:18 WBC 10.44 (4.8-10.8) K/ul RBC 4.33 (4.20-5.40) M/uL Hgb 13.9 (12.0-16.0) g/dl Hct 41.8 (37.0-47.0) % MCV 96.5 (80.0-100.0) fL MCH 32.1 (25.0-34.0) pg MCHC 33.3 (32.0-36.0) g/dL RDW Std Deviation 46.4 H (36.4-46.3) fL RDW Coeff of Mikki 13.0 (11.5-14.5) % Plt Count 180 (130-400) K/uL MPV 8.9 L (9.4-12.4) fL Immature Gran % (Auto) 0.5 % Neut % (Auto) 83.1 % Lymph % (Auto) 7.1 % [place]ati % (Auto) 8.8 % Eos % (Auto) 0.1 % Baso % (Auto) 0.4 % Neut # (Auto) 8.68 H (1.40-6.50) K/uL Lymph # (Auto) 0.74 L (1.2-3.4) K/uL Manati # (Auto) 0.92 H (0.11-0.59) K/uL Eos # (Auto) 0.01 (0-0.50) K/uL Baso # (Auto) 0.04 (0-0.2) K/uL Immature Gran # (Auto) 0.05 (0.01-0.20) K/uL Sodium 139 (136-145) mmol/L Potassium 4.1 (3.5-5.1) mmol/L Chloride 105 (98-107) mmol/L Carbon Dioxide 28 (21-32) mmol/L Anion Gap 6 (3-11) BUN 15 (6-23) mg/dl Creatinine 1.54 H (0.6-1.2) mg/dl Est Cr Clr Drug Dosing 28.6 ml/min Est GFR ( Amer) 35.8 ml/min Est GFR (Non-Af Amer) 30.9 ml/min BUN/Creatinine Ratio 9.7 L (10-20) Glucose 127 H (70-99(Fasting)) mg/dl Calcium 8.6 (8.5-10.1) mg/dl Magnesium 2.0 (1.7-2.4) mg/dl Total Bilirubin 0.8 (0.2-1.0) mg/dl AST 16 (13-39) U/L ALT 11 (7-52) U/L Alkaline Phosphatase 59 (34-104) U/L Total Protein 6.7 (6.0-8.3) gm/dl Albumin 3.8 (3.4-5.0) gm/dl Globulin 2.9 (2.5-4.0) gm/dl Albumin/Globulin Ratio 1.3 (0.9-2) TSH 2.247 (0.300-4.500) uIu/ml SARS-CoV-2, RNA, NAAT (NEGATIVE) 12/15/22 Range/Units 19:19 WBC (4.8-10.8) K/ul RBC (4.20-5.40) M/uL Hgb (12.0-16.0) g/dl Hct (37.0-47.0) % MCV (80.0-100.0) fL MCH (25.0-34.0) pg MCHC (32.0-36.0) g/dL RDW Std Deviation (36.4-46.3) fL RDW Coeff of Mikki (11.5-14.5) % Plt Count (130-400) K/uL MPV (9.4-12.4) fL Immature Gran % (Auto) % Neut % (Auto) % Lymph % (Auto) % [place] % (Auto) % Eos % (Auto) % Baso % (Auto) % Neut # (Auto) (1.40-6.50) K/uL Lymph # (Auto) (1.2-3.4) K/uL [place]ati # (Auto) (0.11-0.59) K/uL Eos # (Auto) (0-0.50) K/uL Baso # (Auto) (0-0.2) K/uL Immature Gran # (Auto) (0.01-0.20) K/uL Sodium (136-145) mmol/L Potassium (3.5-5.1) mmol/L Chloride (98-107) mmol/L Carbon Dioxide (21-32) mmol/L Anion Gap (3-11) BUN (6-23) mg/dl Creatinine (0.6-1.2) mg/dl Est Cr Clr Drug Dosing ml/min Est GFR ( Amer) ml/min Est GFR (Non-Af Amer) ml/min BUN/Creatinine Ratio (10-20) Glucose (70-99(Fasting)) mg/dl Calcium (8.5-10.1) mg/dl Magnesium (1.7-2.4) mg/dl Total Bilirubin (0.2-1.0) mg/dl AST (13-39) U/L ALT (7-52) U/L Alkaline Phosphatase (34-104) U/L Total Protein (6.0-8.3) gm/dl Albumin (3.4-5.0) gm/dl Globulin (2.5-4.0) gm/dl Albumin/Globulin Ratio (0.9-2) TSH (0.300-4.500) uIu/ml SARS-CoV-2, RNA, NAAT POSITIVE A* (NEGATIVE) Administered Medications Discontinued Medications Dexamethasone Sodium Phosphate (DexamethasonePf 10 Mg/Ml Vial) 6 mg IV NOW ONE Stop: 12/15/22 18:39 Last Admin: 12/15/22 18:59 Dose: 6 mg Documented By: [id number] Sodium Chloride (Nss 1000ml) 1,000 mls @ 999 mls/hr IV .Q1H1M [id number] Stop: 12/15/22 19:45 Last Infusion: 12/15/22 20:01 Dose: 0 mls/hr Documented By: [id number] Admin: 12/15/22 18:59 Dose: 999 mls/hr Documented By: [id number] Imaging Data Radiologist's Impression: Chest X-Ray 12/15/22 18:38 XR chest 1V portable CLINICAL HISTORY: syncope TECHNIQUE: Single frontal radiograph of the chest was obtained. Comparison: Comparison is made to chest radiograph 10/24/2021 FINDINGS: No lines and tubes are seen. Calcified aortic knob is seen. The lungs are clear. No evidence of pleural effusion or pneumothorax. IMPRESSION: No acute chest disease. ACT 112: Negative or not required by law. Electronically signed by: Jan Grigsby M.D. 12/15/2022 7:04 PM Discharge Plan Visit Data Chief Complaint: Fall Stated Complaint: SYNCOPE ED Provider: Kevan Myrick Discharge Problem: Hypoxia, Syncope, Weakness, COVID-19 Patient Disposition: Admitted As Inpatient Forms Stand Alone Forms: [facility] Prescriptions Prescriptions: No Action latanoprost 0.005 % Drops 1 drp OPB PM gabapentin 300 mg capsule 300 mg PO TID Referrals Referrals: Abiel Jalloh MD [Physician] -
[2022-12-15] MEDS ORDERED: dexAMETHasone**PF** 10 MG/ML VIAL IV ONE (18:38)
[2022-12-15] MEDS ORDERED: SODIUM CHLORIDE 0.9% 1000ML 1,000 ML IV SCH (18:45)
--- NOTE | 2022-12-15 19:06 | XRay Report ---
XR chest 1V portable CLINICAL HISTORY: syncope TECHNIQUE: Single frontal radiograph of the chest was obtained. Comparison: Comparison is made to chest radiograph 10/24/2021 FINDINGS: No lines and tubes are seen. Calcified aortic knob is seen. The lungs are clear. No evidence of pleur al effusion or pneumothorax. IMPRESSION: No acute chest disease. ACT 112: Negative or not required by law. Electronically signed by: Jan Grigsby M.D. 12/15/2022 7:04 PM
[2022-12-15 20:03] LABS: Basophils # (auto) 0.04 K/uL (0-0.2); Basophils % (auto) 0.4 %; Eosinophils # (auto) 0.01 K/uL (0-0.50); Eosinophils % (auto) 0.1 %; Hematocrit (blood only) 41.8 % (37.0-47.0); Hemoglobin 13.9 g/dl (12.0-16.0); Immature Granulocytes # (auto) 0.05 K/uL (0.01-0.20); Immature Granulocytes % (auto) 0.5 %; Lymphocytes # (auto) 0.74 K/uL (1.2-3.4); Lymphocytes % (auto) 7.1 %; Mean Corpuscular Hemoglobin 32.1 pg (25.0-34.0); Mean Corpuscular Hgb Conc 33.3 g/dL (32.0-36.0); Mean Corpuscular Volume 96.5 fL (80.0-100.0); Mean Platelet Volume 8.9 fL (9.4-12.4); Monocytes # (auto) 0.92 K/uL (0.11-0.59); Monocytes % (auto) 8.8 %; Neutrophils # (auto) 8.68 K/uL (1.40-6.50); Neutrophils % (auto) 83.1 %; Platelet Count 180 K/uL (130-400); RDW Standard Deviation 46.4 fL (36.4-46.3); Red Blood Count 4.33 M/uL (4.20-5.40); White Blood Count 10.44 K/ul (4.8-10.8)
[2022-12-15 20:30] LABS: Creatinine Clr Calc Pharmacy 28.6 ml/min; Potassium 4.1 mmol/L (3.5-5.1)
[2022-12-15 20:51] LABS: Albumin Globulin Ratio 1.3 (0.9-2); Albumin Level 3.8 gm/dl (3.4-5.0); Bilirubin,Total 0.8 mg/dl (0.2-1.0); Calcium 8.6 mg/dl (8.5-10.1)
[2022-12-15 20:57] LABS: BUN Creatinine Ratio 9.7 (10-20); Est GFR (African American) 35.8 ml/min; Est GFR (Non-African American) 30.9 ml/min
[2022-12-15 21:21] LABS: Globulin 2.9 gm/dl (2.5-4.0); Total Protein 6.7 gm/dl (6.0-8.3)
[2022-12-15] MEDS ORDERED: GABAPENTIN 300 MG CAP PO STA (23:45)
[2022-12-15] MEDS ORDERED: LATANOPROST 0.005% OP SOLN 2.5 ML BTL OP STA (23:49)
[2022-12-16] MEDS ORDERED: diphenhydrAMINE 50 MG/ML VIAL IV STA (00:58)
[2022-12-16] MEDS ORDERED: Heparin IV Adult Wt-Based Low-Dose WITH Bolus Protocol IV STA (02:09)
[2022-12-16] MEDS ORDERED: HEPARIN SODIUM/DEXTROSE 25,000 UNITS/500 ML BAG IV SCH (02:09)
[2022-12-16] MEDS ORDERED: NITROGLYCERIN SL 0.4 MG/TAB TAB SL PRN (02:09)
[2022-12-16] MEDS ORDERED: HEPARIN SOD (PORCINE) 1000 UNIT/ML IV ONE (03:00)
--- NOTE | 2022-12-16 03:21 | History and Physical Report ---
DATE OF ADMISSION: 12/15/2022 CHIEF COMPLAINT: Weakness, COVID positive. HISTORY OF PRESENT ILLNESS: An 82-year-old female with past medical history significant for postherpetic neuralgia, currently on gabapentin. She says she still gets pain on and off on the right side of the torso and she has a history of glaucoma on eyedrops, history of chronic cholecystitis, status post laparoscopic cholecystectomy, history of orthostatic hypotension. The patient lives alone. Daughter lives next to her. Presents with weakness. The patient says she was doing okay. She had COVID a couple of times in the past. In September of 2021, she was diagnosed with COVID. At that time, she also had long COVID and PE, and she was on Eliquis and she stopped Eliquis in March 2022. She is not vaccinated for COVID because of her shingles. Last Thursday, she went to [employer] with her niece and she was walking fine with a cane. They stayed in the mall for a couple of hours and she was doing fine, but yesterday she noted her appetite was down, not feel like eating and today she was feeling extremely weak, not able to stand up and walk. That is the reason she came here. Denies any fevers. Has some nausea but no vomiting, no abdominal pain, no diarrhea, no chest pain. Does not feel short of breath, but when she talks a lot, she feels little short of breath. In the ER, oxygen saturation was 85% on room air, requiring oxygen. Denies any cough, no runny nose, no sore throat, no headache, no blurred visions, no earache. Appetite is okay. She is feeling hungry. Normal bowel and bladder movements. Denies any bleeding episodes. ALLERGIES: BANANAS. PAST MEDICAL HISTORY: As mentioned above. PAST SURGICAL HISTORY: EGD, laparoscopic cholecystectomy, eye surgeries, tonsillectomy. MEDICATIONS: The patient is on gabapentin 300 mg p.o. t.i.d., latanoprost one drop ophthalmic p.m. FAMILY HISTORY: Significant for mother's side has cancer; father has heart disease. SOCIAL HISTORY: Currently , lives alone. Daughter lives close by. No smoking. No alcohol. No drug use. REVIEW OF SYSTEMS: As per HPI. Rest of the review of systems is negative. PHYSICAL EXAMINATION: GENERAL: The patient is of moderate build, not in acute distress. VITAL SIGNS: Temperature 37.5, pulse 81, respiratory rate 20, blood pressure 130/69, oxygen 85% on room air, currently 93% oxygen by nasal cannula. HEENT: Pupils equal, round and reactive to light. Oral mucosa moist. NECK: No JVD, no neck masses. CARDIOVASCULAR: S1 and S2 heard. Regular rate and rhythm. No murmur, no gallop. RESPIRATORY SYSTEM: Normal AP diameter. No accessory muscle use. No wheezing or crackles. ABDOMEN: Soft, bowel sounds present. Nontender, no distention. CENTRAL NERVOUS SYSTEM: Alert and oriented. Speech is clear. Insight is good. Obeys commands. Moves extremities. EXTREMITIES: No edema, no erythema. LABORATORY DATA: WBC 10.4, hemoglobin 13.9, hematocrit 41.8, platelets 180. Sodium 139, potassium 4.1, chloride 105, bicarbonate 28, BUN 15, creatinine 1.4, serum glucose 127, calcium 8.6, magnesium 2, total bilirubin 0.8, AST 16, ALT 11, alkaline phosphatase 59. TSH 2.2. SARS-CoV-2 rapid test positive. IMAGING DATA: Chest x-ray, no acute chest disease. EKG: Normal sinus rhythm at a rate of 77, no significant change was seen. ASSESSMENT AND PLAN: This is an 82-year-old female who presents with weakness and found to have COVID. 1. Weakness, ambulatory dysfunction, most likely from COVID. The patient with history of COVID. As per Pulmonary notes , She was diagnosed with COVID in September 2021 and she had long COVID and she also found to have chronic pulmonary emboli on the CT scan in October 2021. She was on Eliquis and it was stopped March 2022.Currently requiring oxygen, though she does not have any other COVID symptoms except for weakness and hypoxia. Her creatinine is 1.4 and GFR is less than 30, received Decadron in the ER. We will continue Decadron. We will hold remedsivir for now until renal function improves. It looks like the patient has symptoms since yesterday. Closely monitor in the hospital. Once feeling better, we will do PT, OT. 2. Hypoxia. The patient with history of PE after COVID in October of last year. We will do CTA of chest when kidney function improves. Patient initially was ok for empiric iv heparin but declined later. D dimer elevated. will get LE doppler. And follow cta chest once renal function better. 3. Postherpetic neuralgia. Continue gabapentin. 4. History of glaucoma. Continue latanoprost. 5. laine/ckd stage3 It looks like the patient also has chronic kidney disease stage 3 based on labs. The patient's family doctor is retiring and she says she has appointment with [facility] doctor at the end of this month. 6. Deep venous thrombosis prophylaxis: heparin sub . DISPOSITION: Closely monitor in the med tele. PT/OT prior to discharge. Social service to help with discharge planning. Level 1 full code. Job ID: [id number] [facility]
[2022-12-16 03:30] LABS: Hematocrit (blood only) 39.9 % (37.0-47.0); Hemoglobin 13.7 g/dl (12.0-16.0); Mean Corpuscular Hemoglobin 32.5 pg (25.0-34.0); Mean Corpuscular Hgb Conc 34.3 g/dL (32.0-36.0); Mean Corpuscular Volume 94.8 fL (80.0-100.0); Mean Platelet Volume 9.1 fL (9.4-12.4); Platelet Count 192 K/uL (130-400); RDW Coefficient of Variation 12.9 % (11.5-14.5); RDW Standard Deviation 44.7 fL (36.4-46.3); Red Blood Count 4.21 M/uL (4.20-5.40); White Blood Count 8.72 K/ul (4.8-10.8)
[2022-12-16] MEDS: D5W AND NSS 1,000 ML IV SCH ×2 (03:40→13:30)
[2022-12-16 03:44] LABS: BUN Creatinine Ratio 11.4 (10-20); Calcium 9.2 mg/dl (8.5-10.1); Creatinine Clr Calc Pharmacy 27.7 ml/min; Est GFR (African American) 34.7 ml/min; Est GFR (Non-African American) 29.9 ml/min; Magnesium 2.1 mg/dl (1.7-2.4); Potassium 4.2 mmol/L (3.5-5.1)
[2022-12-16 03:54] LABS: Basophils # (auto) 0.01 K/uL (0-0.2); Basophils % (auto) 0.1 %; Immature Granulocytes # (auto) 0.02 K/uL (0.01-0.20); Immature Granulocytes % (auto) 0.2 %; Lymphocytes # (auto) 0.62 K/uL (1.2-3.4); Lymphocytes % (auto) 7.1 %; Monocytes # (auto) 0.08 K/uL (0.11-0.59); Monocytes % (auto) 0.9 %; Neutrophils # (auto) 7.99 K/uL (1.40-6.50); Neutrophils % (auto) 91.7 %
[2022-12-16 04:04] LABS: D Dimer 1600 ug/L FEU (0-500)
[2022-12-16] MEDS: GABAPENTIN 300 MG CAP PO SCH ×3 (08:55→22:34)
[2022-12-16] MEDS: ENOXAPARIN INJ 30 MG/0.3 ML SYR SQ SCH (08:57)
[2022-12-16] MEDS: dexAMETHasone 6 MG in SYRINGE 0 ML IV SCH (08:57)
--- NOTE | 2022-12-16 10:11 | Ultrasound Report ---
BILATERAL LOWER EXTREMITY VENOUS DOPPLER HISTORY: Elevated d-dimer elevated d dimer. DVT? COMPARISON STUDY: 10/24/2021 FINDINGS: There is normal compressibility, flow, and augmentation within the bilateral lower extremit y deep venous systems. Subcutaneous edema. IMPRESSION: No DVT within the right or left lower extremity. ACT 112: Negative or not required by law. Electronically signed by: Avila Dias M.D. 12/16/2022 10:10 AM
[2022-12-16 12:01] LABS: BUN Creatinine Ratio 15.1 (10-20); Calcium 9.2 mg/dl (8.5-10.1); Creatinine Clr Calc Pharmacy 30.2 ml/min; Est GFR (African American) 40.5 ml/min; Potassium 4.1 mmol/L (3.5-5.1)
--- NOTE | 2022-12-16 12:51 | Electrocardiogram Report ---
Test Reason : Blood Pressure : / mmHG Vent. Rate : 077 BPM Atrial Rate : 077 BPM P-R Int : 164 ms QRS Dur : 072 ms QT Int : 376 ms P-R-T Axes : 055 047 061 degrees QTc Int : 425 ms Normal sinus rhythm Normal ECG When compared with ECG of 24-OCT-2021 10:59, No significant change was found Confirmed by Will Arreola ([id number]) on 12/16/2022 12:50:55 PM Referred By: REFERRED SELF Confirmed By:Will Arreola
[2022-12-16] MEDS ORDERED: HEPARIN SOD 5,000 UNIT/0.5 ML VIAL SQ SCH (14:00)
--- NOTE | 2022-12-16 18:38 | Communication Note ---
Date of Service: December 16, 2022 Patient admitted today for weakness found to have +Covid 19 (she has a history of long Covid 19). She is on decadron. History of PE, was hypoxic on arrival but CTA chest unable to be done due ANDER. After IV fluid, Cr is now 1.3. Patient agreeable for CTA chest which is now ordered. Admitting doctor recommended empiric initiation of heparin drip pending CTA chest but patient declined. LE u/s negative for DVT.
--- NOTE | 2022-12-16 19:10 | Hospitalist Progress Note ---
Date of Service December 16, 2022 Assessment & Plan (1) Hypoxia: Plan: -Was 85% on RA on admission and placed on 2L NC now weaned off -Patient with long standing covid 19 infection, was started on decadron--this can likely be discontinued -History of PE previously on Eliquis -will check CTA chest PE protocol now that Cr is improved (2) Weakness: Plan: -PT eval (3) COVID-19: Plan: -persistently positive Covid 19 (since last year) -currently on decadron but now weaned off oxygen, can likely discontinue decadron (4) ANDER (acute kidney injury): Plan: -Cr improved on IVF, will reduce NSS to 60cc/hr Plan DVT ppx -SQ lovenox Disposition-- From home. Likely discharge home tomorrow if remains stable Admission and Anticipated Discharge Date Admission Date: December 15, 2022 Subjective Patient feels well Weaned off oxygen Physical Exam Physical Exam: Poor historian, no acute distress,non toxic Respiratory: breathing comfortably on room air, no wheezing/rhonchi Cardiovascular: regular rate and rhythm, no murmurs/rubs Gastrointestinal (Abdomen): soft, non tender Musculoskeletal: no edema Neurologic: awake, alert, spontaneously moving extremities, poor historian Results & Data Results & Data ([facility]) Vital Signs (Past 12 Hours) Vital Signs Temp Pulse Pulse Resp BP Pulse Ox O2 Del Method 12/16/22 15:29 36.7 C 78 16 157/88 H 95 Room Air 12/16/22 15:17 72 12/16/22 13:00 36.6 C 71 20 161/82 H 98 Nasal Cannula 12/16/22 09:49 Nasal Cannula 12/16/22 07:31 36.3 C L 79 18 161/90 H 98 Nasal Cannula O2 Flow Rate 12/16/22 15:29 12/16/22 15:17 12/16/22 13:00 1 12/16/22 09:49 2 12/16/22 07:31 2
[2022-12-16] MEDS ORDERED: OPTIRAY 320 500ml IV ONE (19:54)
--- NOTE | 2022-12-16 20:41 | CT Scan Report ---
Exam(s): CTA CHEST EXAM: CT Angiography Chest With Intravenous Contrast CLINICAL HISTORY: Reason for exam: PE. TECHNIQUE: Axial computed tomographic angiography images of the chest with intravenous contrast. Automated exposure control was utilized for the study. A dose lowering technique was utilized adhering to the principles of ALARA. MIP reconstructed images were created and reviewed. COMPARISON: 04/08/2022. FINDINGS: Pulmonary arteries: Unremarkable. Normal enhancement of the pulmonary arteries with no filling defect to suggest pulmonary embolus. Aorta: Atherosclerotic disease of aorta. 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 Lungs: Mild bilateral lower lobe atelectasis, remainder of the lung parenchyma is clear. No mass. Pleural space: Unremarkable. No significant effusion. No pneumothorax. Heart: Mild cardiomegaly. Coronary artery calcifications. No significant pericardial effusion. No evidence of RV dysfunction. Thyroid: Atrophy of the thyroid gland, unchanged in the interval. Bones/joints: Degenerative disease of the thoracic spine. No acute fracture. No dislocation. Soft tissues: Unremarkable. Lymph nodes: Unremarkable. No enlarged lymph nodes. Gallbladder and bile ducts: Status post cholecystectomy otherwise unremarkable abdominal viscera. IMPRESSION: 1. No pulmonary embolus or aortic dissection. 2. 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 3. Mild bilateral lower lobe atelectasis otherwise no acute cardiopulmonary disease. Electronically signed by: Juana Arzola MD 12/16/22 20:40 PM
[2022-12-16] MEDS: SODIUM CHLORIDE 0.9% 1000ML 1,000 ML IV SCH (22:24)
[2022-12-16] MEDS: LATANOPROST 0.005% OP SOLN 2.5 ML BTL OPB SCH (22:27)
[2022-12-16 23:05] LABS: Appearance Urine Clear (Clear); Bacteria Urine Automated 1+ (Negative); Bilirubin Urine Negative (Negative); Blood Urine 1+ (Negative); Color Urine Yellow; Epithelial Cell Urine Auto >30 /lpf (0-5); Glucose Urine UA Negative (Negative); Ketones Urine Negative (Negative); Leukocyte Esterase Urine Negative (Negative); Nitrite Urine Negative (Negative); Protein Urine Negative (Negative); RBC Urine Automated 0-4 /hpf (0-4); Specific Gravity Urine > 1.045 (1.000-1.030); Urobilinogen Urine Negative (Negative)
[2022-12-17] MEDS: GABAPENTIN 300 MG CAP PO SCH ×3 (08:10→21:27)
[2022-12-17] MEDS: dexAMETHasone 6 MG in SYRINGE 0 ML IV SCH (08:10)
[2022-12-17] MEDS: ENOXAPARIN INJ 30 MG/0.3 ML SYR SQ SCH (08:13)
[2022-12-17 10:48] LABS: Basophils # (auto) 0.02 K/uL (0-0.2); Basophils % (auto) 0.1 %; Hematocrit (blood only) 41.2 % (37.0-47.0); Hemoglobin 14.1 g/dl (12.0-16.0); Immature Granulocytes # (auto) 0.13 K/uL (0.01-0.20); Immature Granulocytes % (auto) 0.9 %; Lymphocytes # (auto) 0.98 K/uL (1.2-3.4); Lymphocytes % (auto) 6.6 %; Mean Corpuscular Hemoglobin 32.4 pg (25.0-34.0); Mean Corpuscular Hgb Conc 34.2 g/dL (32.0-36.0); Mean Corpuscular Volume 94.7 fL (80.0-100.0); Mean Platelet Volume 9.2 fL (9.4-12.4); Monocytes % (auto) 2.7 %; Neutrophils # (auto) 13.41 K/uL (1.40-6.50); Neutrophils % (auto) 89.7 %; Platelet Count 224 K/uL (130-400); RDW Coefficient of Variation 13.1 % (11.5-14.5); RDW Standard Deviation 45.7 fL (36.4-46.3); Red Blood Count 4.35 M/uL (4.20-5.40); White Blood Count 14.94 K/ul (4.8-10.8)
[2022-12-17 11:07] LABS: BUN Creatinine Ratio 18.8 (10-20); Calcium 8.9 mg/dl (8.5-10.1); Creatinine Clr Calc Pharmacy 31.1 ml/min; Est GFR (African American) 40.9 ml/min; Est GFR (Non-African American) 35.3 ml/min
[2022-12-17] MEDS: SODIUM CHLORIDE 0.9% 1000ML 1,000 ML IV SCH (14:51)
--- NOTE | 2022-12-17 18:07 | Hospitalist Progress Note ---
Date of Service December 17, 2022 Assessment & Plan (1) Hypoxia: (2) COVID-19: Plan: Present on admission with hypoxia with oxygen saturations 85% on RA and she was CTA chest negative for placed on 2L NC persistently positive Covid 19 (since last year) CTA chest negative for PE She was started on Decadron, will discontinue since patient saturating well on room air Continue monitor closely (3) Weakness: Plan: Continue PT/OT eval PT recommended short stay rehab Continue PT/OT Fall precaution (4) ANDER (acute kidney injury): Plan: Creatinine 1.3 today Received gentle fluid hydration Monitor creatinine level closely since patient received contrast during admission (5) Thoracic aortic aneurysm (TAA): Plan: CTA chest showed atherosclerotic disease of aorta with distal thoracic aneury elevated WBC smal dilatation measuring up to 4.2 cm, slightly increased in size in the interval. CT finding discussed with patient to follow with vascular surgery outpatient Elevated WBC WBC 14.9. today Mostly due to steroid Afebrile Continue monitor Plan DVT ppx -SQ lovenox Disposition Waiting for placement to rehab Admission and Anticipated Discharge Date Admission Date: December 15, 2022 Subjective Patient was seen and evaluated for follow-up of COVID 19 lying in bed in no acute distress. Patient said her energy is poor. She saturated well on room air She participated in therapy today that recommend short rehab stay Denies any chest pain, palpitation, dizziness, shortness of breath. Review of Systems Review of Systems: All systems reviewed & are unremarkable except as noted in Subjective Physical Exam Physical Exam: General- No acute distress Head- atraumatic Eyes- PERRL, EOMI, ENT- oropharynx clear Neck- supple, no JVD Lungs- clear to auscultation Heart- regular rhythm; no murmur Abdomen- normal bowel sounds, soft, nontender Extremities- no calf tenderness Neuro- alert, oriented x 3; PERRL, EOMI; no facial palsy; no dysarthria Skin- warm & dry Results & Data Results & Data ([facility]) Vital Signs (Past 12 Hours) Vital Signs Temp Pulse Pulse Resp BP Pulse Ox O2 Del Method 12/17/22 15:52 65 12/17/22 15:41 36.9 C 65 16 159/70 H 96 Room Air 12/17/22 14:28 Room Air 12/17/22 12:26 58 L 12/17/22 12:23 95 12/17/22 12:00 37.0 C 81 16 164/94 H 95 Room Air 12/17/22 07:41 36.7 C 90 16 153/75 H 97 Room Air
[2022-12-17] MEDS: LATANOPROST 0.005% OP SOLN 2.5 ML BTL OPB SCH (21:28)
[2022-12-18] MEDS: GABAPENTIN 300 MG CAP PO SCH ×3 (08:31→20:15)
[2022-12-18] MEDS: ENOXAPARIN INJ 30 MG/0.3 ML SYR SQ SCH (08:32)
[2022-12-18 09:41] LABS: Hematocrit (blood only) 43.1 % (37.0-47.0); Hemoglobin 14.7 g/dl (12.0-16.0); Mean Corpuscular Hemoglobin 32.2 pg (25.0-34.0); Mean Corpuscular Hgb Conc 34.1 g/dL (32.0-36.0); Mean Corpuscular Volume 94.3 fL (80.0-100.0); Mean Platelet Volume 9.2 fL (9.4-12.4); Platelet Count 248 K/uL (130-400); RDW Coefficient of Variation 13.2 % (11.5-14.5); RDW Standard Deviation 45.1 fL (36.4-46.3); Red Blood Count 4.57 M/uL (4.20-5.40); White Blood Count 14.47 K/ul (4.8-10.8)
[2022-12-18 09:58] LABS: BUN Creatinine Ratio 23.1 (10-20); Calcium 9.3 mg/dl (8.5-10.1); Creatinine Clr Calc Pharmacy 29.2 ml/min; Est GFR (African American) 37.9 ml/min; Est GFR (Non-African American) 32.7 ml/min; Potassium 3.9 mmol/L (3.5-5.1)
--- NOTE | 2022-12-18 16:47 | Hospitalist Progress Note ---
Date of Service December 18, 2022 Assessment & Plan (1) Hypoxia: (2) COVID-19: Plan: Present on admission with hypoxia with oxygen saturations 85% on RA and she was CTA chest negative for placed on 2L NC persistently positive Covid 19 (since last year) CTA chest negative for PE She was started on Decadron, that was discontinued yesterday since patient is saturating well on room air Continue monitor closely (3) Weakness: Plan: Continue PT/OT eval PT recommended short stay rehab Continue PT/OT Fall precaution (4) ANDER (acute kidney injury): Plan: Creatinine 1.4 today Received gentle fluid hydration Monitor creatinine level closely since patient received contrast during admission (5) Thoracic aortic aneurysm (TAA): Plan: CTA chest showed atherosclerotic disease of aorta with distal thoracic aneury elevated WBC smal dilatation measuring up to 4.2 cm, slightly increased in size in the interval. CT finding discussed with patient to follow with vascular surgery outpatient Elevated WBC WBC 14.9. today Mostly due to steroid Afebrile Continue monitor Plan DVT ppx -SQ lovenox Disposition Waiting for placement to rehab Admission and Anticipated Discharge Date Admission Date: December 15, 2022 Subjective Patient was seen and evaluated for follow-up of COVID 19 Sitting in bed with no acute distress talking on the phone She said that she feels ok Denies any chest pain, palpitation, dizziness, shortness of breath. Review of Systems Review of Systems: All systems reviewed & are unremarkable except as noted in Subjective Physical Exam Physical Exam: General- No acute distress Head- atraumatic Eyes- PERRL, EOMI, ENT- oropharynx clear Neck- supple, no JVD Lungs- clear to auscultation Heart- regular rhythm; no murmur Abdomen- normal bowel sounds, soft, nontender Extremities- no calf tenderness Neuro- alert, oriented x 3; PERRL, EOMI; no facial palsy; no dysarthria Skin- warm & dry Results & Data Results & Data ([facility]) Vital Signs (Past 12 Hours) Vital Signs Temp Pulse Pulse Resp BP Pulse Ox O2 Del Method 12/18/22 16:42 57 L 12/18/22 16:07 36.8 C 66 21 168/74 H 97 Room Air 12/18/22 12:12 36.6 C 65 97 H 158/112 H 97 Room Air 12/18/22 08:30 Room Air 12/18/22 10:10 64 169/72 H 12/18/22 08:07 36.8 C 63 20 182/75 H 97 Room Air 12/18/22 07:28 51 L
[2022-12-18] MEDS: LATANOPROST 0.005% OP SOLN 2.5 ML BTL OPB SCH (20:15)
[2022-12-19] MEDS: GABAPENTIN 300 MG CAP PO SCH ×3 (10:59→20:20)
[2022-12-19] MEDS: ENOXAPARIN INJ 30 MG/0.3 ML SYR SQ SCH (11:01)
[2022-12-19] MEDS: guaiFENesin 200 MG TAB PO SCH ×2 (15:22→20:20)
[2022-12-19] MEDS ORDERED: hydrALAZINE HCL 20 MG/ML VIAL IV PRN (16:23)
--- NOTE | 2022-12-19 16:23 | Hospitalist Progress Note ---
Date of Service December 19, 2022 Assessment & Plan (1) Hypoxia: (2) COVID-19: Plan: Present on admission with hypoxia with oxygen saturations 85% on RA and she was CTA chest negative for placed on 2L NC persistently positive Covid 19 (since last year) CTA chest negative for PE She was started on Decadron, that was discontinued yesterday since patient is saturating well on room air Incentive spirometry, flutter valve and guaifenesin Continue monitor closely (3) Weakness: Plan: Continue PT/OT eval PT recommended short stay rehab Continue PT/OT Fall precaution (4) ANDER (acute kidney injury): Plan: Creatinine 1.4 Received gentle fluid hydration Monitor creatinine level closely since patient received contrast during admi ssion (5) Thoracic aortic aneurysm (TAA): Plan: CTA chest showed atherosclerotic disease of aorta with distal thoracic aneury elevated WBC smal dilatation measuring up to 4.2 cm, slightly increased in size in the interval. CT finding discussed with patient to follow with vascular surgery outpatient Elevated WBC WBC 14.9. today Mostly due to steroid Afebrile Continue monitor Plan DVT ppx -SQ lovenox Disposition Waiting for placement to rehab Admission and Anticipated Discharge Date Admission Date: December 15, 2022 Subjective Patient was seen and evaluated for follow-up of COVID 19 Lying in bed with no acute distress Pt said that she is not feeling good today She said that she is coughing more and tired today She said that she does not have much energy today Denies any chest pain, palpitation, dizziness, shortness of breath. Review of Systems Review of Systems: All systems reviewed & are unremarkable except as noted in Subjective Physical Exam Physical Exam: General- No acute distress Head- atraumatic Eyes- PERRL, EOMI, ENT- oropharynx clear Neck- supple, no JVD Lungs- clear to auscultation Heart- regular rhythm; no murmur Abdomen- normal bowel sounds, soft, nontender Extremities- no calf tenderness Neuro- alert, oriented x 3; PERRL, EOMI; no facial palsy; no dysarthria Skin- warm & dry Results & Data Results & Data ([facility]) Vital Signs (Past 12 Hours) Vital Signs Temp Pulse Pulse Resp BP Pulse Ox O2 Del Method 12/19/22 15:50 67 12/19/22 11:02 36.6 C 73 16 190/80 H 97 Room Air 12/19/22 08:13 36.6 C 70 16 161/80 H 97 Room Air 12/19/22 07:25 51 L
[2022-12-19] MEDS: LATANOPROST 0.005% OP SOLN 2.5 ML BTL OPB SCH (20:20)
[2022-12-20] MEDS: guaiFENesin 200 MG TAB PO SCH ×3 (05:01→21:51)
[2022-12-20] MEDS: GABAPENTIN 300 MG CAP PO SCH ×3 (08:04→21:50)
[2022-12-20] MEDS: ENOXAPARIN INJ 30 MG/0.3 ML SYR SQ SCH (08:05)
--- NOTE | 2022-12-20 15:15 | Hospitalist Progress Note ---
Date of Service December 20, 2022 Assessment & Plan (1) Hypoxia: (2) COVID-19: Plan: Present on admission with hypoxia with oxygen saturations 85% on RA and she was CTA chest negative for placed on 2L NC persistently positive Covid 19 (since last year) CTA chest negative for PE She was started on Decadron, that was discontinued yesterday since patient is saturating well on room air Continue Incentive spirometry, flutter valve and guaifenesin Clinically improves significantly Continue monitor (3) Weakness: Plan: Continue PT/OT eval PT recommended short stay rehab Fall precaution waiting for placement (4) ANDER (acute kidney injury): Plan: Creatinine 1.4 Received gentle fluid hydration Monitor creatinine level closely since patient received contrast during admission (5) Thoracic aortic aneurysm (TAA): Plan: CTA chest showed atherosclerotic disease of aorta with distal thoracic aneury elevated WBC smal dilatation measuring up to 4.2 cm, slightly increased in size in the interval. CT finding discussed with patient to follow with vascular surgery outpatient Elevated WBC WBC 14.9. today Mostly due to steroid Afebrile Continue monitor Plan DVT ppx -SQ lovenox Disposition Waiting for placement to rehab Admission and Anticipated Discharge Date Admission Date: December 15, 2022 Subjective Patient was seen and evaluated for follow-up of COVID 19 Lying in bed with no acute distress Pt said that she feels much better today She said that she was able to sleep but staff woke her off to check on her Denies any chest pain, palpitation, dizziness, shortness of breath. Review of Systems Review of Systems: All systems reviewed & are unremarkable except as noted in Subjective Physical Exam Physical Exam: General- No acute distress Head- atraumatic Eyes- PERRL, EOMI, ENT- oropharynx clear Neck- supple, no JVD Lungs- clear to auscultation Heart- regular rhythm; no murmur Abdomen- normal bowel sounds, soft, nontender Extremities- no calf tenderness Neuro- alert, oriented x 3; PERRL, EOMI; no facial palsy; no dysarthria Skin- warm & dry Results & Data Results & Data ([facility]) Vital Signs (Past 12 Hours) Vital Signs Temp Pulse Pulse Resp BP BP Pulse Ox 12/20/22 12:01 37 C 81 16 138/79 96 12/20/22 08:58 73 12/20/22 07:57 37.0 C 78 18 154/75 H 97 12/20/22 03:37 36.7 C 77 16 150/77 H 97 O2 Del Method 12/20/22 12:01 Room Air 12/20/22 08:58 12/20/22 07:57 Room Air 12/20/22 03:37 Room Air
[2022-12-20] MEDS: ACETAMINOPHEN 325 MG TAB PO PRN (18:03)
[2022-12-20] MEDS: LATANOPROST 0.005% OP SOLN 2.5 ML BTL OPB SCH (19:53)
[2022-12-21] MEDS: GABAPENTIN 300 MG CAP PO SCH ×3 (04:05→22:08)
[2022-12-21] MEDS: guaiFENesin 200 MG TAB PO SCH ×3 (05:54→20:59)
[2022-12-21 06:44] LABS: Hematocrit (blood only) 41.5 % (37.0-47.0); Hemoglobin 14.3 g/dl (12.0-16.0); Mean Corpuscular Hemoglobin 32.3 pg (25.0-34.0); Mean Corpuscular Hgb Conc 34.5 g/dL (32.0-36.0); Mean Corpuscular Volume 93.7 fL (80.0-100.0); Mean Platelet Volume 9.1 fL (9.4-12.4); Platelet Count 229 K/uL (130-400); RDW Standard Deviation 44.6 fL (36.4-46.3); Red Blood Count 4.43 M/uL (4.20-5.40); White Blood Count 9.64 K/ul (4.8-10.8)
[2022-12-21 08:39] LABS: BUN Creatinine Ratio 20.6 (10-20); Calcium 8.7 mg/dl (8.5-10.1); Creatinine Clr Calc Pharmacy 32.6 ml/min; Est GFR (African American) 43.5 ml/min; Est GFR (Non-African American) 37.6 ml/min
[2022-12-21] MEDS: ENOXAPARIN INJ 30 MG/0.3 ML SYR SQ SCH (10:38)
[2022-12-21] MEDS ORDERED: Nursing to Pharmacy Communication SCH (11:00)
--- NOTE | 2022-12-21 16:58 | Hospitalist Progress Note ---
Date of Service December 21, 2022 Assessment & Plan (1) Hypoxia: (2) COVID-19: Plan: Present on admission with hypoxia with oxygen saturations 85% on RA and she was CTA chest negative for placed on 2L NC persistently positive Covid 19 (since last year) CTA chest negative for PE She was started on Decadron, that was discontinued yesterday since patient is saturating well on room air Continue Incentive spirometry, flutter valve and guaifenesin Clinically improves significantly Continue monitor (3) Weakness: Plan: Continue PT/OT eval PT recommended short stay rehab Fall precaution waiting for placement (4) ANDER (acute kidney injury): Plan: Creatinine 1.3 today Received gentle fluid hydration Monitor creatinine level closely since patient received contrast during admission (5) Thoracic aortic aneurysm (TAA): Plan: CTA chest showed atherosclerotic disease of aorta with distal thoracic aneury elevated WBC smal dilatation measuring up to 4.2 cm, slightly increased in size in the interval. CT finding discussed with patient to follow with vascular surgery outpatient Elevated WBC Mostly due to steroid WBC is normalized now Afebrile Resolved Plan DVT ppx -SQ lovenox Disposition Waiting for placement to rehab Admission and Anticipated Discharge Date Admission Date: December 15, 2022 Subjective Patient was seen and evaluated for follow-up of COVID 19 Lying in bed with no acute distress She said tht she feels ok Denies any chest pain, palpitation, dizziness, shortness of breath. Review of Systems Review of Systems: All systems reviewed & are unremarkable except as noted in Subjective Physical Exam Physical Exam: General- No acute distress Head- atraumatic Eyes- PERRL, EOMI, ENT- oropharynx clear Neck- supple, no JVD Lungs- clear to auscultation Heart- regular rhythm; no murmur Abdomen- normal bowel sounds, soft, nontender Extremities- no calf tenderness Neuro- alert, oriented x 3; PERRL, EOMI; no facial palsy; no dysarthria Skin- warm & dry Results & Data Results & Data ([facility]) Vital Signs (Past 12 Hours) Vital Signs Temp Pulse Resp BP Pulse Ox O2 Del Method 12/21/22 16:00 75 12/21/22 09:00 Room Air 12/21/22 07:58 36.9 C 18 134/83 96 Room Air 12/21/22 07:38 66
[2022-12-21] MEDS: ACETAMINOPHEN 325 MG TAB PO PRN (17:27)
[2022-12-21] MEDS: LATANOPROST 0.005% OP SOLN 2.5 ML BTL OPB SCH (20:58)
[2022-12-22] MEDS: GABAPENTIN 300 MG CAP PO SCH ×3 (03:25→20:06)
[2022-12-22] MEDS: guaiFENesin 200 MG TAB PO SCH ×3 (05:19→22:38)
[2022-12-22] MEDS: ENOXAPARIN INJ 30 MG/0.3 ML SYR SQ SCH (07:59)
[2022-12-22] MEDS: ACETAMINOPHEN 325 MG TAB PO PRN (08:11)
--- NOTE | 2022-12-22 17:38 | Hospitalist Progress Note ---
Date of Service December 22, 2022 Assessment & Plan (1) Hypoxia: (2) COVID-19: Plan: Present on admission with hypoxia with oxygen saturations 85% on RA and she was CTA chest negative for placed on 2L NC persistently positive Covid 19 (since last year) CTA chest negative for PE She was started on Decadron, that was discontinued yesterday since patient is saturating well on room air Continue Incentive spirometry, flutter valve and guaifenesin Clinically improves significantly Continue monitor (3) Weakness: Plan: Continue PT/OT eval While walking with therapy early, she became fatigue, weak and her gait was unsteady PT recommended short stay rehab Fall precaution waiting for placement (4) ANDER (acute kidney injury): Plan: Creatinine 1.3 Received gentle fluid hydration Monitor creatinine level closely since patient received contrast during admission (5) Thoracic aortic aneurysm (TAA): Plan: CTA chest showed atherosclerotic disease of aorta with distal thoracic aneury elevated WBC smal dilatation measuring up to 4.2 cm, slightly increased in size in the interval. CT finding discussed with patient to follow with vascular surgery outpatient Elevated WBC Mostly due to steroid WBC is normalized now Afebrile Resolved Plan DVT ppx -SQ lovenox Disposition Waiting for placement to rehab Admission and Anticipated Discharge Date Admission Date: December 15, 2022 Subjective Patient was seen and evaluated for follow-up of COVID 19 Sitting in bed with no acute distress eating Lunch Pt said that she feels better today While walking with therapy early, she became fatigue, weak and her gait was unsteady Pt said that she lives alone Denies any chest pain, palpitation, dizziness, shortness of breath. Review of Systems Review of Systems: All systems reviewed & are unremarkable except as noted in Subjective Physical Exam Physical Exam: General- No acute distress Head- atraumatic Eyes- PERRL, EOMI, ENT- oropharynx clear Neck- supple, no JVD Lungs- clear to auscultation Heart- regular rhythm; no murmur Abdomen- normal bowel sounds, soft, nontender Extremities- no calf tenderness Neuro- alert, oriented x 3; PERRL, EOMI; no facial palsy; no dysarthria Skin- warm & dry Results & Data Results & Data ([facility]) Vital Signs (Past 12 Hours) Vital Signs Temp Pulse Pulse Resp BP Pulse Ox O2 Del Method 12/22/22 17:07 36.8 C 87 18 109/76 96 Room Air 12/22/22 16:00 71 12/22/22 12:04 37.0 C 68 17 133/77 96 Room Air 12/22/22 07:58 36.6 C 84 18 147/79 H 97 Room Air 12/22/22 07:10 73
[2022-12-22] MEDS: LATANOPROST 0.005% OP SOLN 2.5 ML BTL OPB SCH (20:05)
[2022-12-23] MEDS: GABAPENTIN 300 MG CAP PO SCH ×3 (03:10→20:27)
[2022-12-23] MEDS: guaiFENesin 200 MG TAB PO SCH ×3 (05:03→20:27)
[2022-12-23] MEDS: ENOXAPARIN INJ 30 MG/0.3 ML SYR SQ SCH (09:00)
[2022-12-23] MEDS: ACETAMINOPHEN 325 MG TAB PO PRN (16:39)
--- NOTE | 2022-12-23 18:00 | Hospitalist Progress Note ---
Date of Service December 23, 2022 Assessment & Plan (1) Hypoxia: (2) COVID-19: Plan: Present on admission with hypoxia with oxygen saturations 85% on RA and she was CTA chest negative for placed on 2L NC persistently positive Covid 19 (since last year) CTA chest negative for PE She was started on Decadron, that was discontinued yesterday since patient is saturating well on room air Continue Incentive spirometry, flutter valve and guaifenesin Clinically improves significantly Continue monitor (3) Weakness: Plan: Continue PT/OT eval While walking with therapy early, she became fatigue, weak and her gait was unsteady PT recommended short stay rehab Fall precaution waiting for placement (4) ANDER (acute kidney injury): Plan: Creatinine 1.3 Received gentle fluid hydration Monitor creatinine level closely since patient received contrast during admission (5) Thoracic aortic aneurysm (TAA): Plan: CTA chest showed atherosclerotic disease of aorta with distal thoracic aneury elevated WBC smal dilatation measuring up to 4.2 cm, slightly increased in size in the interval. CT finding discussed with patient to follow with vascular surgery outpatient Elevated WBC Mostly due to steroid WBC is normalized now Afebrile Resolved Plan DVT ppx -SQ lovenox Disposition Waiting for placement to rehab, possible tomorrow Admission and Anticipated Discharge Date Admission Date: December 15, 2022 Subjective Patient was seen and evaluated for follow-up of COVID 19 Sitting in bed with no acute distress eating Lunch Denies any chest pain, palpitation, dizziness, shortness of breath. Review of Systems Review of Systems: All systems reviewed & are unremarkable except as noted in Subjective Physical Exam Physical Exam: General- No acute distress Head- atraumatic Eyes- PERRL, EOMI, ENT- oropharynx clear Neck- supple, no JVD Lungs- clear to auscultation Heart- regular rhythm; no murmur Abdomen- normal bowel sounds, soft, nontender Extremities- no calf tenderness Neuro- alert, oriented x 3; PERRL, EOMI; no facial palsy; no dysarthria Skin- warm & dry Results & Data Results & Data ([facility]) Vital Signs (Past 12 Hours) Vital Signs Temp Pulse Pulse Resp BP Pulse Ox O2 Del Method 12/23/22 16:22 37.0 C 88 16 153/81 H 96 Room Air 12/23/22 14:55 69 03/14/23 11:58 36.7 C 76 16 147/79 H 98 Room Air 12/23/22 07:46 36.7 C 72 16 133/76 97 Room Air 12/23/22 07:24 64
[2022-12-23] MEDS: LATANOPROST 0.005% OP SOLN 2.5 ML BTL OPB SCH (20:27)
[2022-12-24] MEDS: MICONAZOLE NITRATE POWDER 85 GM EXT SCH ×2 (00:38→08:45)
[2022-12-24] MEDS: GABAPENTIN 300 MG CAP PO SCH ×2 (03:53→12:15)
[2022-12-24] MEDS: guaiFENesin 200 MG TAB PO SCH ×2 (05:33→13:24)
[2022-12-24] MEDS: ENOXAPARIN INJ 30 MG/0.3 ML SYR SQ SCH (08:45)
[2022-12-24 09:04] LABS: Creatinine Clr Calc Pharmacy 32.5 ml/min; Est GFR (African American) 43.9 ml/min; Est GFR (Non-African American) 37.9 ml/min
--- NOTE | 2022-12-24 12:38 | Discharge Summary ---
Date of Service December 24, 2022 Admission HPI Per Admitting Provider 82-year-old female with past medical history significant for postherpetic neuralgia, currently on gabapentin. She says she still gets pain on and off on the right side of the torso and she has a history of glaucoma on eyedrops, history of chronic cholecystitis, status post laparoscopic cholecystectomy, history of orthostatic hypotension. The patient lives alone. Daughter lives next to her. Presents with weakness. The patient says she was doing okay. She had COVID a couple of times in the past. In September of 2021, she was diagnosed with COVID. At that time, she also had long COVID and PE, and she was on Eliquis and she stopped Eliquis in March 2022. She is not vaccinated for COVID because of her shingles. Last Thursday, she went to [employer] with her niece and she was walking fine with a cane. They stayed in the mall for a couple of hours and she was doing fine, but yesterday she noted her appetite was down, not feel like eating and today she was feeling extremely weak, not able to stand up and w alk. That is the reason she came here. Denies any fevers. Has some nausea but no vomiting, no abdominal pain, no diarrhea, no chest pain. Does not feel short of breath, but when she talks a lot, she feels little short of breath. In the ER, oxygen saturation was 85% on room air, requiring oxygen. Denies any cough, no runny nose, no sore throat, no headache, no blurred visions, no earache. Ra arias is okay. She is feeling hungry. Normal bowel and bladder movements. Denies any bleeding episodes. Admission Exam Per Admitting Provider GENERAL: The patient is of moderate build, not in acute distress. VITAL SIGNS: Temperature 37.5, pulse 81, respiratory rate 20, blood pressure 130/69, oxygen 85% on room air, currently 93% oxygen by nasal cannula. HEENT: Pupils equal, round and reactive to light. Oral mucosa moist. NECK: No JVD, no neck masses. CARDIOVASCULAR: S1 and S2 heard. Regular rate and rhythm. No murmur, no gallop. RESPIRATORY SYSTEM: Normal AP diameter. No accessory muscle use. No wheezing or crackles. ABDOMEN: Soft, bowel sounds present. Nontender, no distention. CENTRAL NERVOUS SYSTEM: Alert and oriented. Speech is clear. Insight is good. Obeys commands. Moves extremities. EXTREMITIES: No edema, no erythema. Principal Diagnosis COVID 19 infection Discharge Exam Constitutional + well hydrated; no acute distress Eyes PERRL, conjunctivae normal, anicteric sclerae ENMT external ear and nose normal, oropharynx normal Respiratory normal respiratory effort, lungs clear to auscultation Cardiovascular Rate/Rhythm: regular rate and regular rhythm S1 S2 Gastrointestinal (Abdomen) normal bowel sounds, soft, nontender, no hepatosplenomegaly Musculoskeletal No pedal edema Neurologic PERRL, EOMI, accommodation nl, no face palsy, no dysarthria Psychiatric A+Ox3, euthymic affect Discharge Data Allergies Allergy/AdvReac Type Severity Reaction Status Date / Time melon Allergy Severe Anaphylaxis Verified 12/16/22 11:00 banana Allergy Intermediate ITCHY, Verified 12/15/22 21:17 IRRITATED, SLIGHT SWELLING OF THROAT Consultations 12/15/22 20:57 ED Decision to Admit Stat Ordered Studies 12/16/22 04:08 US venous doppler LE BI Urgent 12/16/22 18:39 CT angio chest PE protocol Routine Hospital Course (1) Hypoxia: (2) COVID-19: Presented on admission with generalized weakness, anorexia Was noted to be hypoxic with oxygen saturations 85% on RA on presentation Tested positive to COVID 19 New COVID 19 infection vs persistent positive test (previous test a year ago had been positive) CTA chest negative for PE. Mild bibasilar lower lobe atelectasis otherwise no acute cardiopulmonary diseases She was started on Decadron which was discontinued after a day since she was weaned off oxygen Clinically improves significantly (3) Weakness: Was evaluated by PT/OT PT recommended short stay rehab Fall precaution Discharged to rehab (4) ANDER (acute kidney injury): Creatinine went up to 1.58 Down to 1.3 today ANDER vs CKD 3 (as Cr in 10/2021 was 1.28) (5) Thoracic aortic aneurysm (TAA): CTA chest showed atherosclerotic disease of aorta with distal thoracic aneury elevated WBC smal dilatation measuring up to 4.2 cm, slightly increased in size in the interval. CT finding discussed with patient to follow with vascular surgery outpatient Total Time Total Time Spent Total Time Spent (In Minutes): 45 Total Time Includes: Examination of the Patient, Discharge Planning and Medication Reconciliation Discharge Plan Discharge Items Patient Disposition: Transfer Inpatient Rehab Fac Reason For Visit: WEAKNESS Discharge Diagnosis: COVID 19 infection Weakness Activity: As commented below Activity Comment: As recommended by Physical therapist Non-emergency contact: Primary Care Provider Call non-emergency contact if: you have any medication questions Follow-up/Referrals: Jb Escalante DO [Primary Care Provider] - (Date & Time 12/22/2022 11:20 AM Provider Jb Escalante DO Department [facility] ) Diet: Regular Addtl Attending Provider Instructions: Mrs Marie You came to the hospital complaining of weakness You were found to be positive for COVID 19 infection. You were required oxygen briefly and has been off it since. You are being discharged to nursing facility for rehab. Please ensure follow up with your Primary Doctor. It was a pleasure taking care of you. Pending Studies at Discharge: No Stand-Alone Forms: My [facility] Skilled Items Patient informed of condition?: Yes DNR: No Discharge Level of Care: Skilled Communicable Disease: No Discharge Prognosis: Stable Lines: None Urinary Catheter: No Medications and DC Order Prescriptions: New guaifenesin 200 mg Tablet 200 mg PO Q8H PRN (Reason: Cough) Qty: 15 0RF Continued latanoprost 0.005 % Drops 1 drp OPB PM Qty: 2.5 0RF gabapentin 300 mg capsule 300 mg PO TID Qty: 90 0RF Discharge Orders: Discharge Order (Routine); Ordered 12/24/22 Ordered By: Sindhu Ramsay Admission Data Admit Date/Time: 12/15/22 23:44 Attending Provider: Sindhu Ramsay I. Admit Provider: Steffen Muniz Primary Care Provider: Jb Escalante Other Providers: Steffen Muniz ; Lianna Bautista ; [place] ; Jaxon Jose Other Interventions: Discharge Summary Assessment (RN) Last Done: 12/24/22 12:50
== END 2022-12-24 13:45 | DRG 178 ==
LOC: ED 18:23 → 2W 23:44 → SUATTDRO 23:44 → 2W 12-16 01:38